=== PATIENT | male | born 1975 | race Caucasian/White ===

== ENCOUNTER 2017-07-06 22:45 | Emergency (ER) | payer OTHER ==
[2017-07-06 22:59] VITALS: RESP 18
[2017-07-06] MEDS ORDERED: ACETAMINOPHEN TAB 500 MG TAB PO STA (23:24)
--- NOTE | 2017-07-06 23:46 | XR ---
EXAMINATION TYPE: XR chest 2V DATE OF EXAM: 07/06/2017 COMPARISON: 07/24/2012 HISTORY: COPD TECHNIQUE: Frontal and lateral views of the chest are obtained. FINDINGS: The heart and mediastinum are normal. Lungs are clear. Diaphragm is normal. Bony thorax ap pears normal. IMPRESSION: Normal chest. No change.
--- NOTE | 2017-07-06 23:50 | ED ---
General Adult HPI - General Chief complaint: Upper Respiratory Infection Stated complaint: Congestion Time Seen by Provider: 07/06/17 23:19 Source: patient, RN notes reviewed Mode of arrival: ambulatory Limitations: no limitations - History of Present Illness Initial comments: This is a 42-year-old male who presents to emergency department with chief complaint of congestion. Patient states that he believes he has a sinus infection. He states he has been congested since yesterday. Patient also complains of a productive cough and generalized body aches. He denies nausea, vomiting or abdominal pain. He denies diarrhea or constipation. He states he' s been eating and drinking well. Denies any chest pain or shortness of breath. - Related Data Previous Rx's Medication Instructions Recorded Ibuprofen [Motrin] 600 mg PO Q8HR PRN #30 tab 01/27/15 Oseltamivir [Tamiflu] 75 mg PO Q12HR #10 cap 07/07/17 Allergies Allergy/AdvReac Type Severity Reaction Status Date / Time No Known Allergies Allergy Verified 07/06/17 22:59 Review of Systems ROS Statement: Those systems with pertinent positive or pertinent negative responses have been documented in the HPI. ROS Other: All systems not noted in ROS Statement are negative. 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 Does not appear to be acutely ill. HEENT: Head atraumatic, normocephalic. Pupils are equal, round and reactive to light. Extraocular movements intact. Oropharynx moist without erythema or exudate. No tenderness on palpation of maxillary or frontal sinuses. Neck: Supple. Normal ROM. No adenopathy. Cardiovascular: Regular rate and rhythm. No murmurs, rubs or gallops. Chest symmetrical. Respiratory: Lungs clear to auscultation bilaterally. No wheezes, rales or rhonchi. Normal respiratory effort with no use of accessory muscles. Abdomen: Soft, non-tender, non-distended. No rigidity, rebound or guarding. Normal bowel sounds in all 4 quadrants. Musculoskeletal: Normal ROM, no tenderness bilateral upper and lower extremities. Skin: [place], warm and dry without rashes or lesions. Neurological: Alert and oriented x3. CN II-XII grossly intact. Speech is fluent and answers are appropriate. No focal neuro deficits. Psychiatric: Normal mood and affect. No overt signs of depression or anxiety noted. Limitations: no limitations Course Vital Signs 07/06/17 22:57 Temperature 101 F H Pulse Rate 105 H Respiratory 18 Rate Blood Pressure 139/89 O2 Sat by Pulse 97 Oximetry Medical Decision Making - Medical Decision Making This is a 42-year-old male who presents to the emergency department with chief complaint of cough and congestion. On presentation patient had a mildly elevated heart rate and was febrile. Chest x-ray revealed no acute abnormalities. Patient tested positive for influenza A. He is doing well and is in no acute distress at this time. Patient will be discharged home with prescription for Tamiflu if patient wishes to have it filled. Patient is in agreement with plan and voiced understanding. All questions answered. - Lab Data Lab Results 07/06/17 Range/Units 23:25 Influenza Type A RNA Detected H (Not Detectd) Influenza Type B (PCR) Not Detected (Not Detectd) - Radiology Data Radiology results: report reviewed Chest x-ray findings: The heart and mediastinum are normal. Lungs are clear. Diaphragm is normal. Bony thorax appears normal. Impression: Normal chest. No change. Disposition Clinical Impression: Influenza Disposition: HOME SELF-CARE Condition: Good Instructions: Influenza (ED) Additional Instructions: Please take medications as prescribed. Please follow up with primary care provider within 1-2 days. Return to emergency department if symptoms should worsen or any concerns arise. Prescriptions: Oseltamivir [Tamiflu] 75 mg PO Q12HR #10 cap Referrals: Jatinder Condon MD [Primary Care Provider] - 1-2 days Time of Disposition: 00:09
[2017-07-07 00:22] VITALS: BP 130/84; PULSE 94; TEMP 99
== END 2017-07-07 00:22 | disposition home or self-care (01) ==
LOC: EC 22:45
DX: J10.1 Influenza due to other identified influenza virus with other respiratory manifestations (principal); F17.200 Nicotine dependence, unspecified, uncomplicated
CPT/HCPCS: 71046; 87502; 99283

== ENCOUNTER 2018-11-26 18:38 | Emergency (ER) | payer OTHER ==
[2018-11-26 18:44] VITALS: RESP 18
--- NOTE | 2018-11-26 19:25 | ED ---
Extremity Problem HPI - General Chief complaint: Extremity Problem,Nontraumatic Stated complaint: hand injury-[facility] Source: patient Mode of arrival: ambulatory Limitations: no limitations - History of Present Illness Initial comments: 43-year-old male presenting for right hand thumb pain. She states while rolling a large object at work he felt pain in his mid hand and right thumb. Patient conservative sprain. He states he does not feel anything is broken. Patient states he was unable to continue to work due to the pain. Presents emergency department for evaluation. Patient denies any other areas of injury. Denies any wrist pain. Patient denies numbness tingling loss sensation or any significant swelling. Remaining review of system negative - Related Data Previous Rx's Medication Instructions Recorded Ibuprofen [Motrin] 600 mg PO Q8HR PRN #30 tab 01/27/15 Oseltamivir [Tamiflu] 75 mg PO Q12HR #10 cap 07/07/17 Allergies Allergy/AdvReac Type Severity Reaction Status Date / Time No Known Allergies Allergy Verified 11/26/18 18:44 Review of Systems ROS Statement: Those systems with pertinent positive or pertinent negative responses have been documented in the HPI. ROS Other: All systems not noted in ROS Statement are negative. 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 Eye: Pupils are equal, round and reactive to light, extra-ocular movements are intact. No nystagmus. There is normal conjunctiva bilaterally. No signs of icterus. Ears, nose, mouth and throat: There are moist mucous membranes and no oral lesions. Neck: The neck is supple, there is no tenderness or JVD. Cardiovascular: There is a regular rate and rhythm. No murmur, rub or gallop is appreciated. Respiratory: Lungs are clear to auscultation, respirations are non-labored, breath sounds are equal. No wheezes, stridor, rales, or rhonchi. Musculoskeletal: Normal ROM at the MTP, PIP, DIP joints of all five digits of the hands b/l. No pain with ROM at the wrist b/l. Patient complained of pain at the right thumb IP joint. Strength 5/5. Sensation intact both proximal and distal to injury site, no snuffbox tendernesss. Radial pulses equal bilaterally 2+. Capillary refill < 2 seconds. Neurological: A&O x 3. CN II-XII intact, There are no obvious motor or sensory deficits. Coordination appears grossly intact. Speech is normal. Skin: Skin is warm and dry and no rashes or lesions are noted. Psychiatric: Cooperative, appropriate mood & affect, normal judgment. Limitations: no limitations Course Vital Signs 11/26/18 11/26/18 18:39 20:35 Temperature 98.7 F 98.8 F Pulse Rate 105 H 99 Respiratory 18 18 Rate Blood Pressure 138/99 130/90 O2 Sat by Pulse 98 99 Oximetry Medical Decision Making - Medical Decision Making 43-year-old male presented for chief complaint of right hand pain that occurred at work while moving a heavy object. No limitation to range of motion patient complains of pain at the IP joint of the right thumb. Patient also admits to that hand pain no anatomical snuffbox tenderness. Neurovascular intact. Heart soft and compressible. No limitations or range of motion of the wrists or pain localized to palpation. This is negative. Imaging studies reveal no acute osseous injury. Patient appears well. Patient placed in splint and given orthopedic f/u. This time feel patient is right-hand strain. Patient was given work limitations of no use of right hand until orthopedic clearance. Disposition Clinical Impression: Strain of right hand, Pain of right thumb Disposition: HOME SELF-CARE Condition: Good Instructions (If sedation given, give patient instructions): Hand Sprain (ED) Additional Instructions: Please use medication as discussed. Please follow-up with family doctor in the next week for evaluation of elevated blood pressure, please follow-up with orthopedic surgery in the next 2-3 days. Please return to emergency room if the symptoms increase or worsen or for any other concerns. Is patient prescribed a controlled substance at d/c from ED?: No Referrals: Jatinder Condon MD [Primary Care Provider] - 1-2 days Tramaine Higuera DO [Doctor of Osteopathic Medicine] - 1-2 days Time of Disposition: 19:51
--- NOTE | 2018-11-26 19:38 | XR ---
EXAMINATION TYPE: XR hand complete RT DATE OF EXAM: 11/26/2018 COMPARISON: NONE HISTORY: Hand pain TECHNIQUE: 3 views FINDINGS: Metacarpals appear intact. I see no fracture nor dislocation. There are no erosions. Film a ppears intact. IMPRESSION: No acute abnormality of the right hand. No sign of inflammatory arthritis.
[2018-11-26 20:37] VITALS: BP 130/90; PULSE 99; TEMP 98.8
== END 2018-11-26 20:37 | disposition home or self-care (01) ==
LOC: EC 18:38
DX: S66.911A Strain of unspecified muscle, fascia and tendon at wrist and hand level, right hand, initial encounter (principal); M79.644 Pain in right finger(s); F17.200 Nicotine dependence, unspecified, uncomplicated; X50.9XXA Other and unspecified overexertion or strenuous movements or postures, initial encounter; Y92.69 Other specified industrial and construction area as the place of occurrence of the external cause; Y99.0 Civilian activity done for income or pay
CPT/HCPCS: 99283

== ENCOUNTER → 2018-12-03 | Outpatient (CLI) | payer OTHER ==
--- NOTE | 2018-12-03 12:27 | XR ---
EXAMINATION TYPE: XR wrist complete RT, XR hand complete RT DATE OF EXAM: 12/03/2018 CLINICAL HISTORY: Right wrist and hand pain TECHNIQUE: Frontal, lateral and oblique images of the right wrist and hand were obtained. Scaphoid v iew was also obtained. COMPARISON: None. FINDINGS: There is no acute fracture/dislocation evident in the right breast nor hand. The joint spa ronald in the right wrist and hand appear within normal limits. The overlying soft tissue appears unrem arkable. No radio opaque foreign body. No negative ulnar variance or positive ulnar variance. Carpal carpal interspaces are maintained. No significant arthropathy at this time. IMPRESSION: There is no acute fracture or dislocation in the right wrist nor hand.
== END | disposition home or self-care (01) ==
LOC: RADXRMAIN 12:01
PROVIDERS: ATTEND Emergency Medicine
DX: M79.641 Pain in right hand (principal); M25.531 Pain in right wrist

== ENCOUNTER 2019-02-24 17:47 | Emergency (ER) | payer OTHER ==
[2019-02-24] MEDS ORDERED: ACET/COD 300 MG/30 MG STARTER PACK 6 TAB BTL PO STA (18:07)
--- NOTE | 2019-02-24 18:07 | ED ---
Back Pain HPI - General Chief Complaint: Back Pain/Injury Stated Complaint: Back pain-[facility] Time Seen by Provider: 02/24/19 17:55 Source: patient, RN notes reviewed Limitations: no limitations - History of Present Illness Initial Comments: This a 43-year-old male presents emergency department to complaint of low back pain. 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 Patient states he has no symptoms that radiate into his leg. He has no abdominal complaints including nausea vomiting diarrhea constipation no bowel bladder incontinence or retention. Denies any saddle anesthesias or lower extremity paresthesias. Patient states that he just feels very stiff, painful. Patient denies any history of back issues. - Related Data Previous Rx's Medication Instructions Recorded Ibuprofen [Motrin] 600 mg PO Q8HR PRN #30 tab 01/27/15 Oseltamivir [Tamiflu] 75 mg PO Q12HR #10 cap 07/07/17 Cyclobenzaprine [Flexeril] 10 mg PO TID PRN #15 tab 02/24/19 Ibuprofen [Motrin] 600 mg PO Q8HR PRN #30 tab 02/24/19 Allergies Allergy/AdvReac Type Severity Reaction Status Date / Time No Known Allergies Allergy Verified 02/24/19 17:52 Review of Systems ROS Statement: Those systems with pertinent positive or pertinent negative responses have been documented in the HPI. ROS Other: All systems not noted in ROS Statement are negative. Past Medical History Past Medical History: No Reported History History of Any Multi-Drug Resistant Organisms: None Reported Past Surgical History: No Surgical Hx Reported Additional Past Surgical History / Comment(s): splenectomy Past Psychological History: No Psychological Hx Reported Smoking Status: Current every day smoker Past Alcohol Use History: Rare Past Drug Use History: None Reported General Exam Limitations: no limitations General appearance: alert, in no apparent distress Head exam: Present: atraumatic, normocephalic, normal inspection Neck exam: Present: normal inspection, full ROM. Absent: tenderness, meningismus, lymphadenopathy Respiratory exam: Present: normal lung sounds bilaterally. Absent: respiratory distress, wheezes, rales, rhonchi, stridor Cardiovascular Exam: Present: regular rate, normal rhythm, normal heart sounds. Absent: systolic murmur, diastolic murmur, rubs, gallop, clicks GI/Abdominal exam: Present: soft, normal bowel sounds. Absent: distended, tenderness, guarding, rebound, rigid Extremities exam: Present: other (Lower extremity strength equal bilaterally, neurovascular intact full strength equal color equal warmth) Back exam: Present: tenderness (Left lumbar paraspinal), muscle spasm, paraspinal tenderness, other (Pain with left straight leg raise). Absent: full ROM (Slight decreased range of motion secondary to discomfort), CVA tenderness (R), CVA tenderness (L), vertebral tenderness Neurological exam: Present: alert, oriented X3, CN II-XII intact, reflexes normal. Absent: motor sensory deficit Skin exam: Present: warm, dry, intact, normal color. Absent: rash Course Vital Signs 02/24/19 17:50 Temperature 98.0 F Pulse Rate 97 Respiratory 18 Rate Blood Pressure 134/90 O2 Sat by Pulse 98 Oximetry Medical Decision Making - Medical Decision Making 43-year-old male presented for low back pain. Patient is a lumbar strain. He has no red flag symptoms. Patient we treated conservatively will be kept off work until his follow-up appointment. Disposition Clinical Impression: Strain of lumbar region Disposition: HOME SELF-CARE Condition: Stable Instructions (If sedation given, give patient instructions): Acute Low Back Pain (ED) Additional Instructions: Please return to the Emergency Department if symptoms worsen or any other concerns. Prescriptions: Cyclobenzaprine [Flexeril] 10 mg PO TID PRN #15 tab PRN Reason: Muscle Spasm Ibuprofen [Motrin] 600 mg PO Q8HR PRN #30 tab PRN Reason: Pain Is patient prescribed a controlled substance at d/c from ED?: No Referrals: Jatinder Condon MD [Primary Care Provider] - 1-2 days Time of Disposition: 18:07
[2019-02-24 18:55] VITALS: BP 130/74; PULSE 62; RESP 17; TEMP 98.1
== END 2019-02-24 18:55 | disposition home or self-care (01) ==
LOC: EC 17:47
DX: S39.012A Strain of muscle, fascia and tendon of lower back, initial encounter (principal); F17.200 Nicotine dependence, unspecified, uncomplicated; X50.9XXA Other and unspecified overexertion or strenuous movements or postures, initial encounter; Y92.69 Other specified industrial and construction area as the place of occurrence of the external cause; Y99.0 Civilian activity done for income or pay
CPT/HCPCS: 99283

== ENCOUNTER → 2019-02-26 | Outpatient (CLI) | payer OTHER ==
--- NOTE | 2019-02-26 10:37 | XR ---
EXAMINATION TYPE: XR lumbar spine 2 or 3V DATE OF EXAM: 02/26/2019 CLINICAL HISTORY: Back pain after twisting injury TECHNIQUE: Frontal and lateral images of the lumbar spine are obtained. COMPARISON: None FINDINGS: Bowel gas overlies the left L1 transverse process of securing visualization. There are 5 l umbar type vertebral bodies identified. The lumbar spine shows satisfactory alignment without eviden ce of acute fracture or dislocation. Vertebral body heights are maintained. Multilevel mild degenerat olga disc disease is seen as small anterior osteophytes and multilevel facet arthropathy with interver tebral disc space narrowing of the lower lumbar spine. The overlying soft tissue appears unremarkabl e. IMPRESSION: No acute fracture or dislocation is seen in the lumbar spine.
== END | disposition home or self-care (01) ==
LOC: RADXRMAIN 10:17
PROVIDERS: ATTEND Emergency Medicine
DX: S39.012A Strain of muscle, fascia and tendon of lower back, initial encounter (principal)
CPT/HCPCS: 72100

== ENCOUNTER → 2020-04-08 | Outpatient (CLI) | payer OTHER ==
--- NOTE | 2020-04-08 17:47 | XR ---
EXAMINATION TYPE: XR elbow complete RT DATE OF EXAM: 04/08/2020 COMPARISON: NONE HISTORY: Pain FINDINGS: Three views of the elbow demonstrate no pathologic joint effusion. The osseous structures are intact . There is no acute fracture or dislocation. Olecranon tiny spur noted. Lateral view demonstrates a soft tissue calcification posteriorly. IMPRESSION: 1. No acute fracture or dislocation. If symptoms persist follow-up study in 7 to 10 days could be ob tained. 2. Olecranon spur.
--- NOTE | 2020-04-08 17:48 | XR ---
EXAMINATION TYPE: XR forearm RT DATE OF EXAM: 04/08/2020 COMPARISON: NONE HISTORY: Pain Two views of the forearm demonstrate that the osseous structures appear to be intact and the joint sp aces appear to be preserved. There is no acute fracture or dislocation. There is an olecranon spur. IMPRESSION: 1. No acute fracture or dislocation
--- NOTE | 2020-04-08 17:49 | XR ---
EXAMINATION TYPE: XR humerus RT DATE OF EXAM: 04/08/2020 COMPARISON: NONE HISTORY: Pain TECHNIQUE: 2 views submitted. FINDINGS: The osseous structures are intact and the joint spaces are preserved. There is a olecranon spur. Mil d hypertrophic change along the medial margin of the condyle. AC joint arthropathy noted. IMPRESSION: 1. No acute fracture or dislocation.
== END | disposition home or self-care (01) ==
LOC: RADXRMAIN 17:09
PROVIDERS: ATTEND Emergency Medicine
DX: M25.721 Osteophyte, right elbow (principal)

== ENCOUNTER 2020-11-21 06:53 | Emergency (ER) | payer OTHER ==
[2020-11-21 07:01] VITALS: TEMP 97.9
[2020-11-21] MEDS ORDERED: FLUORESCEIN STRIPS 1 MG STRIP LEFT EYE STA (07:03)
[2020-11-21] MEDS ORDERED: PROPARACAINE 0.5% OPHTH DROPS 15 ML BTL RIGHT EYE STA (07:08)
--- NOTE | 2020-11-21 07:29 | ED ---
Eye Problem HPI - General Chief complaint: Eye Problems Stated complaint: FB left eye Time Seen by Provider: 11/21/20 07:02 Source: patient Mode of arrival: ambulatory Limitations: no limitations - History of Present Illness Initial comments: 45-year-old male presents to the emergency department with chief complaint of left eye pain. Patient reports he woke up this morning and noted discomfort in the left eye particularly when he is blinking. He denies any discharge or blurred vision. States last night he was mowing the grass and he could have po ssibly stress to but does not recall the exact moment it occurred. Does not wear eye contacts. Does not have any pain per se, it is more of a discomfort. He washed his eye multiple times today. - Related Data Previous Rx's Medication Instructions Recorded Ibuprofen [Motrin] 600 mg PO Q8HR PRN #30 tab 01/27/15 Oseltamivir [Tamiflu] 75 mg PO Q12HR #10 cap 07/07/17 Cyclobenzaprine [Flexeril] 10 mg PO TID PRN #15 tab 02/24/19 Ibuprofen [Motrin] 600 mg PO Q8HR PRN #30 tab 02/24/19 Allergies Allergy/AdvReac Type Severity Reaction Status Date / Time No Known Allergies Allergy Verified 11/21/20 06:58 Review of Systems ROS Statement: Those systems with pertinent positive or pertinent negative responses have been documented in the HPI. ROS Other: All systems not noted in ROS Statement are negative. Past Medical History Past Medical History: Diabetes Mellitus History of Any Multi-Drug Resistant Organisms: None Reported Past Surgical History: No Surgical Hx Reported Additional Past Surgical History / Comment(s): splenectomy Past Psychological History: No Psychological Hx Reported Smoking Status: Current every day smoker Past Alcohol Use History: None Reported Past Drug Use History: None Reported General Exam Limitations: no limitations General appearance: alert, in no apparent distress Head exam: Present: atraumatic, normocephalic, normal inspection Eye exam: Present: normal appearance, PERRL, EOMI. Absent: scleral icterus, conjunctival injection, nystagmus, other (Negative Xiao sign. . No pain with extraocular movements.) Pupils: Present: normal accommodation, other (Corneal abrasion noted at 7:00 and 11:00.) ENT exam: Present: normal exam, normal oropharynx, mucous membranes moist, TM's normal bilaterally, normal external ear exam Neck exam: Present: normal inspection, full ROM. Absent: tenderness, lympha denopathy Respiratory exam: Present: normal lung sounds bilaterally. Absent: respiratory distress, wheezes, rales, rhonchi, stridor, chest wall tenderness, accessory muscle use Cardiovascular Exam: Present: regular rate, normal rhythm, normal heart sounds. Absent: systolic murmur Extremities exam: Present: normal inspection, full ROM, normal capillary refill. Absent: tenderness, pedal edema, joint swelling Back exam: Present: normal inspection, full ROM. Absent: tenderness, CVA tenderness (R), CVA tenderness (L) Neurological exam: Present: alert, oriented X3 Psychiatric exam: Present: normal affect, normal mood Skin exam: Present: warm, dry, intact, normal color Course Vital Signs 11/21/20 06:58 Temperature 97.9 F Pulse Rate 90 Respiratory 16 Rate Blood Pressure 161/107 O2 Sat by Pulse 100 Oximetry Medical Decision Making - Medical Decision Making 45-year-old male presents to emergency Department with a chief complaint of eye discomfort. On Jimenez lamp examination, patient has 2 corneal abrasions at 7 and 11:00. He will be started on eyedrops. Advised to follow with ophthalmology if symptoms unimproved. Return parameters discussed with patient is understanding and agreeable. Case discussed with Dr. Talbert. Disposition Clinical Impression: Corneal abrasion, left Disposition: HOME SELF-CARE Condition: Stable Instructions (If sedation given, give patient instructions): Corneal Abrasion (DC) Additional Instructions: Take prescribed medication as directed. Follow up with ophthalmology if symptoms don't improve. Return to emergency department if symptoms worsen. Is patient prescribed a controlled substance at d/c from ED?: No Referrals: Jatinder Condon MD [Primary Care Provider] - 1-2 days Gil Montalvo MD [STAFF PHYSICIAN] - 1-2 days Time of Disposition: 07:51
[2020-11-21 08:30] VITALS: RESP 18
[2020-11-21 08:31] VITALS: BP 142/100; PULSE 88
== END 2020-11-21 08:31 | disposition home or self-care (01) ==
LOC: EC 06:53
DX: S05.02XA Injury of conjunctiva and corneal abrasion without foreign body, left eye, initial encounter (principal); E11.9 Type 2 diabetes mellitus without complications; F17.200 Nicotine dependence, unspecified, uncomplicated; X58.XXXA Exposure to other specified factors, initial encounter
CPT/HCPCS: 99283

== ENCOUNTER 2020-12-21 16:36 | Emergency (ER) | payer OTHER ==
[2020-12-21 16:54] VITALS: BP 127/87; PULSE 101; RESP 16; TEMP 98.6
--- NOTE | 2020-12-21 18:05 | ED ---
Skin/Abscess/FB HPI - General Chief complaint: Skin/Abscess/Foreign Body Stated complaint: Blisters on Hands Time Seen by Provider: 12/21/20 17:22 Source: patient, RN notes reviewed Mode of arrival: ambulatory Limitations: no limitations - History of Present Illness Initial comments: Patient is a 45-year-old male that presents to the emergency department complaining of fluid blisters on bilateral hands are extremely itchy. Patient denies any change in substance contacts at work or chemicals. He notes that his hands usually aren't wet. He notes that this all came about within the last couple days. He decided to come to the emergency room get evaluated. She denied any other complaints or issues at this time. He denied any decreased sensation range of motion in his bilateral hands. He denied any chest pain shortness of breath headache nausea vomiting diarrhea constipation fever fatigue chills. - Related Data Previous Rx's Medication Instructions Recorded Ibuprofen [Motrin] 600 mg PO Q8HR PRN #30 tab 01/27/15 Oseltamivir [Tamiflu] 75 mg PO Q12HR #10 cap 07/07/17 Cyclobenzaprine [Flexeril] 10 mg PO TID PRN #15 tab 02/24/19 Ibuprofen [Motrin] 600 mg PO Q8HR PRN #30 tab 02/24/19 Polymyxin B-Trimeth Sulf Ophth 1 drops BOTH EYES Q4H #1 bottle 11/21/20 [Polytrim Opthalmic] Betamethasone Dipropionate 1 applic TOPICAL BID #15 mg 12/21/20 [Betamethasone Dipropionate 0.05%] Allergies Allergy/AdvReac Type Severity Reaction Status Date / Time No Known Allergies Allergy Verified 12/21/20 16:53 Review of Systems ROS Statement: Those systems with pertinent positive or pertinent negative responses have been documented in the HPI. ROS Other: All systems not noted in ROS Statement are negative. Past Medical History Past Medical History: Diabetes Mellitus History of Any Multi-Drug Resistant Organisms: None Reported Past Surgical History: No Surgical Hx Reported Additional Past Surgical History / Comment(s): splenectomy Past Psychological History: No Psychological Hx Reported Smoking Status: Current every day smoker Past Alcohol Use History: None Reported Past Drug Use History: None Reported General Exam Limitations: no limitations General appearance: alert, in no apparent distress Head exam: Present: atraumatic, normocephalic, normal inspection Eye exam: Present: normal appearance, PERRL, EOMI. Absent: scleral icterus, conjunctival injection, periorbital swelling Neck exam: Present: normal inspection Respiratory exam: Present: normal lung sounds bilaterally. Absent: respiratory distress, wheezes, rales, rhonchi, stridor Cardiovascular Exam: Present: regular rate, normal rhythm, normal heart sounds. Absent: systolic murmur, diastolic murmur, rubs, gallop, clicks Extremities exam: Present: full ROM, normal capillary refill, other (Too numerous to count fluid filled vesicles on bilateral hand on the palmar surface in between the fingers.). Absent: tenderness, pedal edema, joint swelling, calf tenderness Neurological exam: Present: alert, oriented X3 Psychiatric exam: Present: normal affect, normal mood Skin exam: Present: warm, dry, intact, normal color. Absent: rash Course Vital Signs 12/21/20 16:51 Temperature 98.6 F Pulse Rate 101 H Respiratory 16 Rate Blood Pressure 127/87 O2 Sat by Pulse 97 Oximetry Medical Decision Making - Medical Decision Making 45-year-old male complaining of fluid filled blisters on his bilateral hands that are extremely itchy. Given clinical symptoms patient most likely has dyshidrotic eczema. Case discussed with Dr. Smith, patient can discharge home with follow-up to dermatology. Patient will be given steroid cream. Disposition Clinical Impression: Dyshidrotic eczema, Dermatitis Disposition: HOME SELF-CARE Condition: Stable Instructions (If sedation given, give patient instructions): Eczema (ED), Dyshidrotic Eczema (ED) Additional Instructions: Please return to the Emergency Department if symptoms worsen or any other concerns. Follow-up with dermatology in the next several days. Use steroid cream as prescribed. Is patient prescribed a controlled substance at d/c from ED?: No Referrals: Jatinder Condon MD [Primary Care Provider] - 1-2 days Time of Disposition: 18:04
== END 2020-12-21 18:18 | disposition home or self-care (01) ==
LOC: EC 16:36
DX: L30.1 Dyshidrosis [pompholyx] (principal); E11.9 Type 2 diabetes mellitus without complications; F17.200 Nicotine dependence, unspecified, uncomplicated; Z79.1 Long term (current) use of non-steroidal anti-inflammatories (NSAID)
CPT/HCPCS: 99282

== ENCOUNTER 2022-04-03 14:06 | Observation (INO) | payer BC ==
[2022-04-03 14:18] VITALS: TEMP 97.7
[2022-04-03] MEDS ORDERED: NITROGLYCERIN OINT 1 INCH/GM PACKET TOPICAL STA (14:47)
[2022-04-03] MEDS ORDERED: ASPIRIN 81 MG PO STA (14:47)
[2022-04-03 15:05] LABS: Basophils # (A) 0.1 k/uL (0-0.2); Basophils % (A) 1 %; Eosinophils # (A) 0.5 k/uL (0-0.7); Eosinophils % (A) 4 %; HCT 46.9 % (39.0-53.0); HGB 16.1 gm/dL (13.0-17.5); Lymphocytes # (A) 3.7 k/uL (1.0-4.8); Lymphocytes % (A) 27 %; MCH 32.8 pg (25.0-35.0); MCHC 34.4 g/dL (31.0-37.0); MCV 95.1 fL (80.0-100.0); Mean Platelet Volume 7.3; Monocytes % (A) 7 %; Neutrophils # (A) 7.8 k/uL (1.3-7.7); Neutrophils % (A) 57 %; Platelet Count 408 k/uL (150-450); RBC 4.93 m/uL (4.30-5.90); RDW 12.5 % (11.5-15.5); WBC 13.6 k/uL (3.8-10.6)
--- NOTE | 2022-04-03 15:12 | ED ---
General Adult HPI - General Chief complaint: Chest Pain Stated complaint: Chest Pain Time Seen by Provider: 04/03/22 14:15 Source: patient, RN notes reviewed, old records reviewed Mode of arrival: wheelchair Limitations: no limitations - History of Present Illness Initial comments: This is a 46-year-old male presents emergency Department with a recent past medical history significant for heart attack. Patient states he had a catheterization a week ago and was told he needed bypass surgery because too many blood vessels were occluded. Patient comes in today because he was experiencing the same type of pain he experienced prior to his heart attack. Patient states he has this achiness in his left shoulder and it comes and goes and it came again today and it lasted longer than it had all week so he decided come to the emergency department. Patient states he only differences today from the Sriram had a heart attack was that the pain did not radiate into his jaw. Patient denies any anterior chest pain patient denies any palpitations. Patient denies any shortness of breath. Patient denies any diaphoretic episodes or nausea. Patient currently is shoulder and chest pain-free. - Related Data Previous Rx's Medication Instructions Recorded Ibuprofen [Motrin] 600 mg PO Q8HR PRN #30 tab 01/27/15 Oseltamivir [Tamiflu] 75 mg PO Q12HR #10 cap 07/07/17 Cyclobenzaprine [Flexeril] 10 mg PO TID PRN #15 tab 02/24/19 Ibuprofen [Motrin] 600 mg PO Q8HR PRN #30 tab 02/24/19 Polymyxin B-Trimeth Sulf Ophth 1 drops BOTH EYES Q4H #1 bottle 11/21/20 [Polytrim Opthalmic] Betamethasone Dipropionate 1 applic TOPICAL BID #15 mg 12/21/20 [Betamethasone Dipropionate 0.05%] Allergies Allergy/AdvReac Type Severity Reaction Status Date / Time No Known Allergies Allergy Verified 12/21/20 16:53 Review of Systems ROS Statement: Those systems with pertinent positive or pertinent negative responses have been documented in the HPI. ROS Other: All systems not noted in ROS Statement are negative. Past Medical History Past Medical History: Coronary Artery Disease (CAD), Chest Pain / Angina, Diabetes Mellitus History of Any Multi-Drug Resistant Organisms: None Reported Past Surgical History: No Surgical Hx Reported Additional Past Surgical History / Comment(s): splenectomy Past Psychological History: No Psychological Hx Reported Smoking Status: Former smoker Past Alcohol Use History: None Reported Past Drug Use History: None Reported General Exam - General Exam Comments Initial Comments: GENERAL: Patient is well-developed and well-nourished. Patient is nontoxic and well- hydrated and is in no acute distress. ENT: Neck is soft and supple. No significant lymphadenopathy is noted. Oropharynx is clear. Moist mucous membranes. Neck has full range of motion without eliciting any pain. EYES: The sclera were anicteric and conjunctiva were pink and moist. Extraocular movements were intact and pupils were equal round and reactive to light. Eyelids were unremarkable. PULMONARY: Unlabored respirations. Good breath sounds bilaterally. No audible rales rhonchi or wheezing was noted. CARDIOVASCULAR: There is a regular rate and rhythm without any murmurs gallops or rubs. ABDOMEN: Soft and nontender with normal bowel sounds. SKIN: Skin is clear with no lesions or rashes and otherwise unremarkable. NEUROLOGIC: Patient is alert and oriented x3. Cranial nerves II through XII are grossly intact. Motor and sensory are also intact. Normal speech, volume and content. Symmetrical smile. MUSCULOSKELETAL: Normal extremities with adequate strength and full range of motion. No lower extremity swelling or edema. No calf tenderness. LYMPHATICS: No significant lymphadenopathy is noted PSYCHIATRIC: Normal psychiatric evaluation. Limitations: no limitations Course Vital Signs 04/03/22 04/03/22 04/03/22 14:14 14:48 14:50 Temperature 97.7 F Pulse Rate 67 65 66 Respiratory 16 13 12 Rate Blood Pressure 89/60 93/73 99/75 O2 Sat by Pulse 97 Oximetry Medical Decision Making - Medical Decision Making EKG shows sinus rhythm at 65 bpm [place] interval 170 QRS is 105 QT interval 384 QTC is 395. Patient's EKG shows no acute ST segment elevation or depression. Chest x-ray shows no acute abnormality. I spoke with Dr. Sarkar he agreed to admit the patient admitted the patient wrote admitting orders. I consulted cardiology - Lab Data Result diagrams: 04/03/22 14:50 04/03/22 14:50 Lab Results 04/03/22 04/03/22 04/03/22 Range/Units 14:50 14:50 14:50 WBC 13.6 H (3.8-10.6) k/uL RBC 4.93 (4.30-5.90) m/uL Hgb 16.1 (13.0-17.5) gm/dL Hct 46.9 (39.0-53.0) % MCV 95.1 (80.0-100.0) fL MCH 32.8 (25.0-35.0) pg MCHC 34.4 (31.0-37.0) g/dL RDW 12.5 (11.5-15.5) % Plt Count 408 (150-450) k/uL MPV 7.3 Neutrophils % 57 % Lymphocytes % 27 % Monocytes % 7 % Eosinophils % 4 % Basophils % 1 % Neutrophils # 7.8 H (1.3-7.7) k/uL Lymphocytes # 3.7 (1.0-4.8) k/uL Monocytes # 1.0 (0-1.0) k/uL Eosinophils # 0.5 (0-0.7) k/uL Basophils # 0.1 (0-0.2) k/uL PT 10.8 (9.0-12.0) sec INR 1.0 (<1.2) APTT 24.1 (22.0-30.0) sec Sodium 136 L (137-145) mmol/L Potassium 4.3 (3.5-5.1) mmol/L Chloride 100 (98-107) mmol/L Carbon Dioxide 23 (22-30) mmol/L Anion Gap 13 mmol/L BUN 18 (9-20) mg/dL Creatinine 0.62 L (0.66-1.25) mg/dL Est GFR (CKD-EPI)AfAm >90 (>60 ml/min/1.73 sqM) Est GFR (CKD-EPI)NonAf >90 (>60 ml/min/1.73 sqM) Glucose 219 H (74-99) mg/dL Calcium 9.5 (8.4-10.2) mg/dL Magnesium 1.7 (1.6-2.3) mg/dL Total Bilirubin 0.8 (0.2-1.3) mg/dL AST 27 (17-59) U/L ALT 31 (4-49) U/L Alkaline Phosphatase 84 (38-126) U/L Troponin I (0.000-0.034) ng/mL Total Protein 6.4 (6.3-8.2) g/dL Albumin 4.0 (3.5-5.0) g/dL 04/03/22 Range/Units 14:50 WBC (3.8-10.6) k/uL RBC (4.30-5.90) m/uL Hgb (13.0-17.5) gm/dL Hct (39.0-53.0) % MCV (80.0-100.0) fL MCH (25.0-35.0) pg MCHC (31.0-37.0) g/dL RDW (11.5-15.5) % Plt Count (150-450) k/uL MPV Neutrophils % % Lymphocytes % % Monocytes % % Eosinophils % % Basophils % % Neutrophils # (1.3-7.7) k/uL Lymphocytes # (1.0-4.8) k/uL Monocytes # (0-1.0) k/uL Eosinophils # (0-0.7) k/uL Basophils # (0-0.2) k/uL PT (9.0-12.0) sec INR (<1.2) APTT (22.0-30.0) sec Sodium (137-145) mmol/L Potassium (3.5-5.1) mmol/L Chloride (98-107) mmol/L Carbon Dioxide (22-30) mmol/L Anion Gap mmol/L BUN (9-20) mg/dL Creatinine (0.66-1.25) mg/dL Est GFR (CKD-EPI)AfAm (>60 ml/min/1.73 sqM) Est GFR (CKD-EPI)NonAf (>60 ml/min/1.73 sqM) Glucose (74-99) mg/dL Calcium (8.4-10.2) mg/dL Magnesium (1.6-2.3) mg/dL Total Bilirubin (0.2-1.3) mg/dL AST (17-59) U/L ALT (4-49) U/L Alkaline Phosphatase (38-126) U/L Troponin I <0.012 (0.000-0.034) ng/mL Total Protein (6.3-8.2) g/dL Albumin (3.5-5.0) g/dL Disposition Clinical Impression: Anginal equivalent Disposition: ADMITTED IP TO THIS HOSP Referrals: Quoc Sarkar MD [Primary Care Provider] - 1-2 days Time of Disposition: 15:45
[2022-04-03 15:14] LABS: Partial Thromboplastin Time 24.1 sec (22.0-30.0); Prothrombin Time 10.8 sec (9.0-12.0)
[2022-04-03 15:15] LABS: ALT 31 U/L (4-49); AST 27 U/L (17-59); African American GFR (CKD) >90 (>60 ml/min/1.73 sqM); Alkaline Phosphatase 84 U/L (38-126); Anion Gap 13 mmol/L; Blood Urea Nitrogen 18 mg/dL (9-20); Calcium 9.5 mg/dL (8.4-10.2); Carbon Dioxide 23 mmol/L (22-30); Chloride 100 mmol/L (98-107); Glucose 219 mg/dL (74-99); Magnesium 1.7 mg/dL (1.6-2.3); Non-African American GFR(CKD) >90 (>60 ml/min/1.73 sqM); Potassium 4.3 mmol/L (3.5-5.1); Sodium 136 mmol/L (137-145); Total Bilirubin 0.8 mg/dL (0.2-1.3); Total Protein 6.4 g/dL (6.3-8.2)
--- NOTE | 2022-04-03 15:19 | XR ---
EXAMINATION TYPE: XR chest 2V DATE OF EXAM: 04/03/2022 COMPARISON: Chest x-ray 07/06/2017 HISTORY: Chest pain TECHNIQUE: Frontal and lateral views of the chest are obtained. FINDINGS: There is no focal air space opacity, pleural effusion, or pneumothorax seen. The cardiac silhouette size is within normal limits. There are overlying leads. The osseous structures are intac t. IMPRESSION: No acute cardiopulmonary process.
[2022-04-03] MEDS ORDERED: NITROGLYCERIN SL TABS 0.4 MG TAB SUBLINGUAL PRN ×2 (15:46→17:15)
[2022-04-03 15:47] VITALS: BP 93/67; PULSE 68; RESP 16
[2022-04-03] MEDS ORDERED: INSULIN ASPART (NovoLOG) 100 UNIT/ML VIAL SQ SCH (17:30)
[2022-04-03] MEDS ORDERED: NITROGLYCERIN OINT 1 INCH/GM PACKET TOPICAL SCH (18:00)
[2022-04-03] MEDS ORDERED: HEPARIN SODIUM,PORCINE/PF 5,000 UNIT/0.5 ML SYRINGE SQ SCH (18:45)
[2022-04-03] MEDS ORDERED: METOPROLOL TARTRATE 50 MG TAB PO SCH (21:00)
[2022-04-03] MEDS ORDERED: INSULIN DETEMIR (LEVEMIR) 100 UNIT/ML SYR SQ SCH (21:00)
[2022-04-04] MEDS ORDERED: ISOSORBIDE MONONITRATE ER 30 MG TAB.ER.24H PO SCH (09:00)
[2022-04-04] MEDS ORDERED: PIOGLITAZONE 15 MG TAB PO SCH (09:00)
[2022-04-04] MEDS ORDERED: ASPIRIN 325 MG TAB PO SCH (09:00)
[2022-04-04] MEDS ORDERED: ASPIRIN 81 MG PO SCH (09:00)
[2022-04-04] MEDS ORDERED: ATORVASTATIN 80 MG TAB PO SCH (09:00)
[2022-04-04] MEDS ORDERED: LOSARTAN 25 MG TAB PO SCH (12:00)
== END 2022-04-03 18:17 | disposition left against medical advice (07) ==
LOC: EC 14:06 → 6NMEDSUR 16:00
PROVIDERS: ADMIT Family Medicine; ATTEND Family Medicine
DX: I25.118 Atherosclerotic heart disease of native coronary artery with other forms of angina pectoris (principal); E11.9 Type 2 diabetes mellitus without complications; I25.2 Old myocardial infarction; Z87.891 Personal history of nicotine dependence; Z98.890 Other specified postprocedural states; Z90.81 Acquired absence of spleen; Z53.29 Procedure and treatment not carried out because of patient's decision for other reasons
CPT/HCPCS: 99285; 36415; 93005; 80053; 83735; 84484; 85025; 85610; 85730; 71046; G0378

== ENCOUNTER → 2022-04-05 | Outpatient (CLI) | payer BC ==
[2022-04-05 09:46] LABS: Partial Thromboplastin Time 24.9 sec (22.0-30.0); Prothrombin Time 10.9 sec (9.0-12.0)
--- NOTE | 2022-04-05 09:47 | US ---
EXAMINATION TYPE: US carotid duplex BILAT DATE OF EXAM: 04/05/2022 COMPARISON: NONE CLINICAL HISTORY: 46-year-old male I25.10 Aths[place] heart disease of [place] coronary artery. TECHNIQUE: Carotid duplex ultrasound examination. Indirect Doppler criteria was utilized. FINDINGS: EXAM MEASUREMENTS: RIGHT: Peak Systolic Velocity (PSV) cm/sec ----- Right CCA: 95.3 ----- Right ICA: 73.8 ----- Right ECA: 136.6 ICA/CCA ratio: 0.8 RIGHT: End Diastole cm/sec ----- Right CCA: 27.0 ----- Right ICA: 24.1 ----- Right ECA: 23.6 LEFT: Peak Systolic Velocity (PSV) cm/sec ----- Left CCA: 110.8 ----- Left ICA: 109.5 ----- Left ECA: 102.9 ICA/CCA ratio: 1.0 LEFT: End Diastole cm/sec ----- Left CCA: 34.4 ----- Left ICA: 29.2 ----- Left ECA: 20.4 VERTEBRALS (direction of flow): Right Vertebral: Antegrade Left Vertebral: Antegrade Rhythm: Normal RN POSTPARTUM NOTES: Elevated velocity within right ECA. Some mild plaque seen within bilateral bulbs. IMPRESSION: No hemodynamically significant internal carotid artery stenosis on either side. Criteria for Assigning % of Stenosis / Diameter reduction (Estimation based on the indirect measurements of the internal carotid artery velocities (ICA PSV). 1. Normal (no stenosis)=ICA PSV < 125 cm/s: ratio < 2.0: ICA EDV<40 cm/s. 2. Less than 50% stenosis=ICA PSV < 125 cm/s: ratio < 2.0: ICA EDV<40 cm/s. 3. 50 to 69% stenosis=ICA PSV of 125 to 230 cm/s: ration 2.0 ? 4.0: ICA EDV 40-100 cm/s. 4. Greater than 70% stenosis to near occlusion= ICA PSV > 230 cm/s: ratio > 4.0: ICA EDV > 100 cm/s. 5. Near occlusion= ICA PSV velocities may be low or undetectable: variable ratio and ICA EDV. 6. Total occlusion=unable to detect flow.
[2022-04-05 10:05] LABS: Appearance,Urine Clear (Clear); Bilirubin,Urine Negative (Negative); Blood,Urine Negative (Negative); Color,Urine Light Yellow; Glucose,Urine (UA) Trace (Negative); Ketones,Urine Negative (Negative); Leukocyte Esterase,Urine Negative (Negative); Nitrite,Urine Negative (Negative); PH, Urine 5.5 (5.0-8.0); Protein,Urine Negative (Negative); Urobilinogen,Urine <2.0 mg/dL (<2.0)
--- NOTE | 2022-04-05 11:06 | CT ---
EXAMINATION TYPE: CT chest wo con CT DLP: 483 mGycm, Automated exposure control for dose reduction was used. DATE OF EXAM: 04/05/2022 10:55 AM COMPARISON: Chest radiograph 04/03/2022. CLINICAL INDICATION:Male, 46 years old with history of I25.10 atherosclerotic heart dz of [place] artery; PHH, pre op open heart TECHNIQUE: Multiple axial images were obtained through the chest without IV contrast. Lack of IV or o ral contrast limits evaluation of solid and hollow organ viscera. Coronal and sagittal reformats revi ewed. FINDINGS: LUNGS/ PLEURA: No pneumothorax, pleural effusion, or focal consolidation. No suspicious pulmonary nod ules or masses. AIRWAY: Patent and unremarkable. HEART: Size within normal limits. No pericardial effusion. Small coronary arterial atherosclerotic ca lcifications involving the left anterior descending, circumflex, and right coronary arteries. MEDIASTINUM: No gross evidence of adenopathy. VASCULATURE: No aortic aneurysm. MUSCULOSKELETAL: No acute osseous abnormalities. Multilevel Schmorl's nodes. SOFT TISSUES/LYMPH NODES: Unremarkable. LOWER NECK: No significant findings. UPPER ABDOMEN: Spleen appears surgically absent. Residual splenules in the splenectomy bed. IMPRESSION: 1. No acute thoracic process. 2. Small three-vessel coronary arterial atherosclerotic calcifications.
[2022-04-05 14:58] LABS: Basophils # (A) 0.12 X 10*3/uL (0.00-0.10); Basophils % (A) 0.9 %; Eosinophils # (A) 0.75 X 10*3/uL (0.04-0.35); Eosinophils % (A) 5.5 %; HCT 51.4 % (39.6-50.0); HGB 16.7 g/dL (13.0-17.0); Immature Grans, Automated 0.4 %; Lymphocytes % (A) 31.4 %; MCH 31.7 pg (27.0-32.0); MCHC 32.5 g/dL (32.0-37.0); MCV 97.5 fL (80.0-97.0); Mean Platelet Volume 9.4 fL (9.5-12.2); Monocytes # (A) 1.38 X 10*3/uL (0.20-1.00); Monocytes % (A) 10.1 %; NRBC Per 100 WBC 0 /100 WBCS (0.0-0.0); Neutrophils # (A) 7.09 X 10*3/uL (1.80-7.70); Neutrophils % (A) 51.7 %; Platelet Count 461 X 10*3/uL (140-440); RBC 5.27 X 10*6/uL (4.40-5.60); RDW 12.3 % (11.5-14.5); WBC 13.69 X 10*3/uL (4.50-10.00)
[2022-04-05 15:47] LABS: Hepatitis A Antibody IgM Nonreactive (Nonreactive); Hepatitis B Core IgM Nonreactive (Nonreactive); Hepatitis B Surface Antigen Nonreactive (Nonreactive); Hepatitis C IgG Antibody Nonreactive (Nonreactive)
[2022-04-05 15:53] LABS: ALT 33 U/L (10-49); AST 25 U/L (14-35); African American GFR (CKD) 120.1 (60.0-200.0); Albumin 4.7 g/dL (3.8-4.9); Albumin/Globulin Ratio 1.83 (1.60-3.17); Alkaline Phosphatase 88 U/L (41-126); BUN/Creat Ratio 20.17 Ratio (12.00-20.00); Blood Urea Nitrogen 16.9 mg/dL (9.0-27.0); Carbon Dioxide 27.1 mmol/L (20.0-27.5); Chloride 100 mmol/L (96-109); Globulin 2.6 g/dL (1.6-3.3); Glucose 149 mg/dL (70-110); Non-African American GFR(CKD) 103.6 (60.0-200.0); Sodium 138 mmol/L (135-145); Total Protein 7.3 g/dL (6.2-8.2)
== END | disposition home or self-care (01) ==
LOC: RADUSWWP 06:40
PROVIDERS: ATTEND Thoracic Surgery (Cardiothoracic Vascular Surgery)
DX: Z01.818 Encounter for other preprocedural examination (principal); I25.10 Atherosclerotic heart disease of native coronary artery without angina pectoris; R07.9 Chest pain, unspecified; E86.0 Dehydration; N28.9 Disorder of kidney and ureter, unspecified; E11.9 Type 2 diabetes mellitus without complications; R58 Hemorrhage, not elsewhere classified; R06.00 Dyspnea, unspecified; R10.33 Periumbilical pain
CPT/HCPCS: 94150; 80053; 80074; 84443; 85025; 85610; 85730; 81003; 87070; 83036; 93930; 93970; 93922; 93880; 71250; 93005; U0003

== ENCOUNTER → 2022-04-20 | Outpatient (CLI) | payer BC | END | disposition home or self-care (01) | LOC: LABWHC1 11:58 | PROVIDERS: ATTEND Thoracic Surgery (Cardiothoracic Vascular Surgery) | DX: E11.9 Type 2 diabetes mellitus without complications (principal) | CPT/HCPCS: 36415; 83036 ==

== ENCOUNTER 2022-05-14 05:35 | Inpatient (IN) | payer BC ==
[~2022-05-14 05:35] MED LIST: ALBUMIN HUMAN 25% 50 ML IV ONE; ALBUMIN HUMAN 5% 500 ML IVPB ONE; ASPIRIN 325 MG TAB PO ONE; ATORVASTATIN 10 MG TAB PO ONE; CALCIUM CHLORIDE 100 MG/ML 10 ML SYRINGE IV ONE; CHLORHEXIDINE GLUCONATE 15 ML CUP MUCOUS MEM ONE; CLEVIDIPINE BUTYRATE 25 MG in EMPTY BAG 1 BAG IV ONE; DILTIAZEM 125 MG in SODIUM CHLORIDE 0.9% 100 ML IV ONE; ELECTROLYTE-A SOLUTION 1,000 ML with POTASSIUM CHLORIDE 100 MEQ, MAGNESIUM SULFATE 16 M... IV ONE; ELECTROLYTE-A SOLUTION 1,000 ML with POTASSIUM CHLORIDE 40 MEQ, MAGNESIUM SULFATE 16 ME... IV ONE; HEPARIN SODIUM 1,000 UN/ML (10ML VL) IV ONE; HEPARIN SODIUM,PORCINE 5,000 UNIT in SODIUM CHLORIDE 0.9% 500 ML 500 ML IV ONE; INSULIN REGULAR 100 UNIT in SODIUM CHLORIDE 0.9% 100 ML IV ONE; LACTATED RINGERS 1,000 ML IV ONE; MAGNESIUM SULFATE 16.24 MEQ in EMPTY SYRINGE 1 SYR IV ONE; MANNITOL 25% 12.5 GM/50 ML VIAL IV ONE; METOPROLOL TARTRATE 12.5 MG TAB PO ONE; NITROGLYCERIN SL TABS 0.4 MG TAB SUBLINGUAL ONE; NITROGLYCERIN-D5W PMX 25 MG/250 ML BTL IV ONE; NITROGLYCERIN-D5W PMX 50 MG in DEXTROSE/WATER 1 250ML.BAG IV ONE; NOREPINEPHRINE 4 MG in SODIUM CHLORIDE 0.9% 250 ML IV ONE; PAPAVERINE 360 MG in SODIUM CHLORIDE 0.9% 90 ML IV ONE; PHENYLEPHRINE 10 MG/ML VIAL IV ONE; PHENYLEPHRINE 40 MG in SODIUM CHLORIDE 0.9% 250 ML IV ONE; PROTAMINE SULFATE 10 MG/ML 25 ML VIAL IV ONE; PROTAMINE SULFATE 250 MG in EMPTY BAG 1 BAG IV ONE; SODIUM BICARB 8.4% 50 ML SYR (1 MEQ/ML) IV ONE; SODIUM CHLORIDE 0.9% 1,000 ML IV ONE; TRANEXAMIC ACID 2,000 MG in SODIUM CHLORIDE 0.9% 80 ML IV ONE; ceFAZolin 1,000 MG in SODIUM CHLORIDE 0.9% IRRIGATIO 1,000 ML IRRIGATION ONE; propofoL 1,000 MG/100 ML VIAL IV ONE
[2022-05-14 06:16] LABS: Glucose,Whole Blood 201 mg/dL (70-110)
[2022-05-14 08:44] LABS: ABG Base Excess 2.6 mmol/L; ABG Glucose Whole Blood 162 mg/dL (75-99); ABG HCO3 28 mmol/L (21-25); ABG Hematocrit 39 % (34.0-46.0); ABG Ionized Calcium 4.7 mg/dL (4.5-5.3); ABG Lactic Acid Whole Blood 1.9 mmol/L (0.5-1.6); ABG Oxygen Saturation 99.6 % (94-97); ABG PCO2 44 mmHg (35-45); ABG PH 7.41 (7.35-7.45); ABG PO2 192 mmHg (83-108); ABG Potassium Whole Blood 3.7 mmol/L (3.4-4.5); ABG Sodium Whole Blood 138 mmol/L (135-146); ABG TCO2 29 mmol/L (19-24)
[2022-05-14 09:56] LABS: ABG Base Excess 1.6 mmol/L; ABG Glucose Whole Blood 173 mg/dL (75-99); ABG HCO3 27 mmol/L (21-25); ABG Hematocrit 39 % (34.0-46.0); ABG Ionized Calcium 4.6 mg/dL (4.5-5.3); ABG Lactic Acid Whole Blood 1.7 mmol/L (0.5-1.6); ABG Oxygen Saturation 99.5 % (94-97); ABG PCO2 44 mmHg (35-45); ABG PO2 185 mmHg (83-108); ABG Potassium Whole Blood 3.9 mmol/L (3.4-4.5); ABG Sodium Whole Blood 137 mmol/L (135-146); ABG TCO2 28 mmol/L (19-24)
[2022-05-14 10:59] LABS: ABG Glucose Whole Blood 168 mg/dL (75-99); ABG HCO3 25 mmol/L (21-25); ABG Hematocrit 27 % (34.0-46.0); ABG Oxygen Saturation 99.8 % (94-97); ABG PCO2 43 mmHg (35-45); ABG PH 7.38 (7.35-7.45); ABG PO2 322 mmHg (83-108); ABG Potassium Whole Blood 4.4 mmol/L (3.4-4.5); ABG Sodium Whole Blood 135 mmol/L (135-146); ABG TCO2 27 mmol/L (19-24)
[2022-05-14 11:37] LABS: ABG Base Excess -0.3 mmol/L; ABG Glucose Whole Blood 211 mg/dL (75-99); ABG HCO3 25 mmol/L (21-25); ABG Hematocrit 30 % (34.0-46.0); ABG Ionized Calcium 4.1 mg/dL (4.5-5.3); ABG Oxygen Saturation 99.6 % (94-97); ABG PCO2 45 mmHg (35-45); ABG PH 7.36 (7.35-7.45); ABG PO2 268 mmHg (83-108); ABG Potassium Whole Blood 4.3 mmol/L (3.4-4.5); ABG Sodium Whole Blood 136 mmol/L (135-146); ABG TCO2 27 mmol/L (19-24)
[2022-05-14 12:00] LABS: ABG Base Excess -0.5 mmol/L; ABG Glucose Whole Blood 208 mg/dL (75-99); ABG HCO3 25 mmol/L (21-25); ABG Hematocrit 29 % (34.0-46.0); ABG Ionized Calcium 4.2 mg/dL (4.5-5.3); ABG PCO2 43 mmHg (35-45); ABG PH 7.37 (7.35-7.45); ABG PO2 384 mmHg (83-108); ABG Potassium Whole Blood 3.6 mmol/L (3.4-4.5); ABG Sodium Whole Blood 137 mmol/L (135-146); ABG TCO2 26 mmol/L (19-24)
[2022-05-14 13:08] LABS: ABG Lactic Acid Whole Blood 2.3 mmol/L (0.5-1.6)
[2022-05-14 13:09] LABS: ABG Lactic Acid Whole Blood 2.1 mmol/L (0.5-1.6)
[2022-05-14 13:18] LABS: ABG Base Excess -0.2 mmol/L; ABG Glucose Whole Blood 147 mg/dL (75-99); ABG HCO3 26 mmol/L (21-25); ABG Hematocrit 34 % (34.0-46.0); ABG Ionized Calcium 4.2 mg/dL (4.5-5.3); ABG Oxygen Saturation 99.3 % (94-97); ABG PCO2 48 mmHg (35-45); ABG PH 7.34 (7.35-7.45); ABG PO2 195 mmHg (83-108); ABG Potassium Whole Blood 3.7 mmol/L (3.4-4.5); ABG Sodium Whole Blood 140 mmol/L (135-146); ABG TCO2 28 mmol/L (19-24)
[2022-05-14 13:26] LABS: ABG Lactic Acid Whole Blood 2.1 mmol/L (0.5-1.6)
[2022-05-14] MEDS ORDERED: hydrALAZINE HCL 20 MG/ML 1 ML VIAL IVP PRN (13:35)
[2022-05-14] MEDS ORDERED: DILTIAZEM 125 MG in SODIUM CHLORIDE 0.9% 100 ML IV SCH (13:35)
[2022-05-14] MEDS ORDERED: DEXTROSE 50% SYRINGE 50 ML IVP PRN ×2 (13:35)
[2022-05-14] MEDS ORDERED: NITROGLYCERIN-D5W PMX 50 MG in DEXTROSE/WATER 1 250ML.BAG IV SCH (13:35)
[2022-05-14] MEDS ORDERED: CLEVIDIPINE BUTYRATE 25 MG in EMPTY BAG 1 BAG IV SCH (13:35)
[2022-05-14] MEDS ORDERED: AMIODARONE 450 MG in DEXTROSE 5% IN WATER 250 ML IV PRN ×2 (13:35)
[2022-05-14] MEDS ORDERED: IPRATROPIUM-ALBUTEROL 3 ML NEB INHALATION PRN (13:35)
[2022-05-14] MEDS ORDERED: AMIODARONE 360 MG in DEXTROSE 5% IN WATER 200 ML IV PRN ×2 (13:35)
[2022-05-14] MEDS ORDERED: Potassium Replacement Protocol 1 EACH MISC MISCELLANE PRN (13:35)
[2022-05-14] MEDS ORDERED: BENZOCAINE/MENTHOL LOZENG 1 EACH LOZENGE MUCOUS MEM PRN (13:35)
[2022-05-14] MEDS ORDERED: METOCLOPRAMIDE 5 MG/ML 2 ML VIAL IVP PRN (13:35)
[2022-05-14] MEDS ORDERED: ONDANSETRON 4 MG/2 ML VIAL IVP PRN (13:35)
[2022-05-14] MEDS ORDERED: Magnesium Replacement Protocol 1 EACH MISC MISCELLANE PRN (13:35)
[2022-05-14] MEDS ORDERED: DEXTROSE 5% IN WATER 100 ML with AMIODARONE 150 MG IV PRN (13:35)
[2022-05-14] MEDS ORDERED: DEXMEDETOMIDINE/0.9% NACL(PMX) 400 MCG in EMPTY BAG 1 BAG IV SCH (13:35)
--- NOTE | 2022-05-14 13:52 | P.OP ---
Date of Procedure: 05/14/22 Preoperative Diagnosis: Triple Vessel CAD NSTEMI DM Postoperative Diagnosis: Same Procedure(s) Performed: 1. Coronary artery bypass grafting x 4. Left internal thoracic artery sequenced to 1st diagonal artery, and left anterior descending artery. Left radial artery from aorta to ramus intermedius. Saphenous vein from aorta to proximal posterior descending artery. 2. Left atrial appendage ligation using #35mm AtriClip 3. Endoscopic left radial and right greater saphenous vein harvest 4. Graft flow measurements using the MediStim flow meter 5. Trans-esophageal echo Implants: #35 AtriClip Anesthesia: GETA Surgeon: Micheal Sainz Wireless Consultant #1: Chauncey Hanna Wireless Consultant #2: Wu Redman Estimated Blood Loss (ml): 600 Pathology: none sent Condition: stable Disposition: ICU Indications for Procedure: This patient is a 46 year-old male who developed chest pain with exertion back in February. He underwent coronary angiography which reveals significant 3v coronary artery disease. He was also diagnosed with diabetes with severely elevated A1c. He was started on insulin and surgical revascularization was recommended when his A1c <10. His STS risk of morbidity and mortality was discussed with him and the patient was in agreement to proceed. Operative Findings: TANK 1.7mm good conduit - 1st diagonal 1.5mm good target, LAD 1.75mm good target. GBEB-HORP-RWA flow 16ml/min, P.I. 4 Left radial 2.0mm good conduit, Ramus calcified 1.5mm, flow 45ml/min, P.I. 3.7 Saphenous vein 2.5mm good conduit, proximal PDA calcified, decent target, flow 20 ml/min, P.I. > 10 Description of Procedure: The patient underwent central line, arterial line, and [place] Mya catheter placement in the pre-operative suite by the anesthesia team. The patient was then brought to the operating room and placed in the supine position. General anesthesia was induced and the patient was prepped from the chin to the ankles in the usual sterile fashion. A time-out was performed and antibiotics were given. A midline incision was made on the chest and carried down to bone. A median sternotomy was performed. Hemostasis on the bone was achieved using electrocautery. The left pleura was entered and the left internal thoracic artery was harvested in a skeletonized fashion. Simultaneously a physician accountant assistant harvested the right greater saphenous vein as well as the left radial artery in an endoscopic fashion. The patient was systemically heparinized and the TANK was transected and placed in a papaverine jacuzzi. A left sided chest tube was placed. The pericardium was incised in a T-fashion and a pericardial cradle was created. The patients aortic arch and right atrial appendage were cannulated for arterial and venous cannulation. Pledgets were used on the arch cannulation site. Antegrade and retrograde cannulas were placed. The conduit was examined and the, radial artery and GSV was of good quality. Cardiopulmonary bypass was instituted once ACT >480. The targets were examined and the heart was arrested using antegrade and retrograde cardioplegia. Retrograde cardioplegia was re-dosed every 15 minutes. The distal right coronary artery was exposed and an arteriotomy was created in the proximal PDA iwhich was a 1.5mm calcified vessel but a decent target. An end to side anastomosis was performed with the GSV to the RCA using a running 7-0 Prolene. Then, a 35mm AtriClip was placed on the left atrial appendage effectively ligating it. The ramus intermedius was dissected out and an arteriotomy was made. It was 1.5mm in diameter and calcified. An end to side anastomosis was performed with radial artery to ramus using a running 7-0 Prolene. The pericardium was then incised to create a pathway for the NAYLOR. Care was taken to avoid injury to phrenic nerve. Next the TANK was anastomosed to the first diagonal artery, which was 1.5mm and a good target, in a side to side fashion using a running 7-0 prolene. Lastly, the TANK was anastomosed to the mid to distal LAD in an end to side fashion using a running 7-0 prolene. Next, the radial artery and saphenous vein proximals were fastened to the ascending aorta in an end to side fashion using a running 6-0 Prolene. The patient was placed in the Trendelenburg position and the clamp was removed. Graft flow measurements were taken using the Medi-Stim device and they were excellent. Ventricular wires were placed and all of the distals were checked for hemostasis. The patient was weaned off cardiopulmonary bypass and decannulated without the need for pressors and inotropes. A 36F chest tube and 19F Miguel were left in the mediastinum and right pleura respectively. The sternum was re- approximated using cables. The fascia was closed with Ethibond and the subcutaneous tissues and skin, the sternum, arm and leg were closed in Vicryl layers. The patient was transported to the ICU without any major complications. RAIMUNDO showed that EF was about 55% at the conclusion of the case.
[2022-05-14 14:00] LABS: Glucose,Whole Blood 124 mg/dL (70-110)
[2022-05-14] MEDS: LACTATED RINGERS 1,000 ML IV SCH (14:00)
[2022-05-14] MEDS: INSULIN REGULAR 100 UNIT in SODIUM CHLORIDE 0.9% 100 ML IV SCH (14:00)
[2022-05-14 14:16] LABS: Ionized Calcium 4.7 mg/dL (4.5-5.3)
[2022-05-14 14:17] LABS: Partial Thromboplastin Time 41.4 sec (22.0-30.0); Prothrombin Time 11.3 sec (9.0-12.0)
[2022-05-14 14:25] LABS: ABG Base Excess -6.6 mmol/L; ABG HCO3 22 mmol/L (21-25); ABG Oxygen Saturation 97.1 % (94-97); ABG PCO2 63 mmHg (35-45); ABG PO2 109 mmHg (83-108); ABG TCO2 24 mmol/L (19-24)
[2022-05-14 14:27] LABS: ABG PH 7.15 (7.35-7.45); Allen Test Performed? no
[2022-05-14 14:38] LABS: ALT 28 U/L (4-49); AST 40 U/L (17-59); African American GFR (CKD) >90 (>60 ml/min/1.73 sqM); Albumin 2.9 g/dL (3.5-5.0); Alkaline Phosphatase 61 U/L (38-126); Anion Gap 3 mmol/L; Blood Urea Nitrogen 16 mg/dL (9-20); Calcium 7.3 mg/dL (8.4-10.2); Carbon Dioxide 27 mmol/L (22-30); Chloride 108 mmol/L (98-107); Glucose 119 mg/dL (74-99); Magnesium 2.5 mg/dL (1.6-2.3); Non-African American GFR(CKD) >90 (>60 ml/min/1.73 sqM); Potassium 4.5 mmol/L (3.5-5.1); Sodium 138 mmol/L (137-145); Total Bilirubin 0.8 mg/dL (0.2-1.3); Total Protein 4.8 g/dL (6.3-8.2)
[2022-05-14 14:43] LABS: HCT 35.3 % (39.0-53.0); MCH 32.1 pg (25.0-35.0); MCHC 34.1 g/dL (31.0-37.0); Mean Platelet Volume 7.9; Platelet Count 205 k/uL (150-450); RBC 3.76 m/uL (4.30-5.90); RDW 13.1 % (11.5-15.5); WBC 23.8 k/uL (3.8-10.6)
[2022-05-14 14:46] LABS: HGB 12.1 gm/dL (13.0-17.5)
[2022-05-14] MEDS: ALBUMIN HUMAN 5% 250 ML in EMPTY BAG 1 BAG IVPB PRN ×3 (14:53→20:54)
[2022-05-14 14:57] LABS: Glucose,Whole Blood 151 mg/dL (70-110)
--- NOTE | 2022-05-14 14:57 | XR ---
EXAMINATION TYPE: XR chest 1V portable DATE OF EXAM: 05/14/2022 COMPARISON: 04/03/2022 HISTORY: Postop TECHNIQUE: Single frontal view of the chest is obtained. FINDINGS: ET tube approximately 3.5 cm above solo. NG tube seen extending in left upper quadrant. Bilateral areas of consolidation. Suspected mediastinal drain and chest tube with no sizable pneumoth orax. Heart size normal. No overt failure. Postsurgical changes seen. Right-sided central line seen w ith the tip not well delineated BE correlated clinically. IMPRESSION: 1. Postoperative changes suspected postoperative atelectasis and no sizable pneumothorax. 2. The tip of the right-sided IJ central line is not well seen and should be correlated for position.
[2022-05-14 15:04] LABS: HCT 35.2 % (39.0-53.0); HGB 12.1 gm/dL (13.0-17.5); MCH 32.8 pg (25.0-35.0); MCHC 34.4 g/dL (31.0-37.0); MCV 95.5 fL (80.0-100.0); Mean Platelet Volume 7.8; Platelet Count 221 k/uL (150-450); RBC 3.69 m/uL (4.30-5.90); RDW 13.2 % (11.5-15.5)
[2022-05-14] MEDS ORDERED: PROTAMINE SULFATE 10 MG/ML 5 ML VIAL IV STA (15:04)
[2022-05-14 15:21] LABS: Glucose,Whole Blood 140 mg/dL (70-110)
[2022-05-14 15:22] LABS: Band Neutrophils % 4 %; Lymphocytes # (M) 2.62 k/uL (1.0-4.8); Monocytes # (M) 2.14 k/uL (0-1.0); Neutrophils % (M) 76 %; Nucleated Red Blood Cells 0 /100 WBC (0-0); Total Cells Counted 100
[2022-05-14 15:24] LABS: Poikilocytosis (M) Present
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
[2022-05-14 15:33] LABS: ABG Base Excess -0.1 mmol/L; ABG HCO3 25 mmol/L (21-25); ABG Oxygen Saturation 98.3 % (94-97); ABG PCO2 41 mmHg (35-45); ABG PH 7.39 (7.35-7.45); ABG PO2 95 mmHg (83-108); ABG TCO2 26 mmol/L (19-24)
[2022-05-14 15:34] LABS: Allen Test Performed? no
[2022-05-14] MEDS ORDERED: IPRATROPIUM-ALBUTEROL 3 ML NEB INHALATION SCH ×2 (16:00→20:00)
[2022-05-14 16:12] LABS: Glucose,Whole Blood 121 mg/dL (70-110)
[2022-05-14 16:18] LABS: HCT 29.5 % (39.0-53.0); HGB 10.1 gm/dL (13.0-17.5); MCH 31.8 pg (25.0-35.0); MCHC 34.1 g/dL (31.0-37.0); MCV 93.4 fL (80.0-100.0); Mean Platelet Volume 7.9; Platelet Count 179 k/uL (150-450); RBC 3.16 m/uL (4.30-5.90); RDW 12.9 % (11.5-15.5); WBC 17.4 k/uL (3.8-10.6)
[2022-05-14] MEDS: HEPARIN SODIUM,PORCINE/PF 5,000 UNIT/0.5 ML SYRINGE SQ SCH ×2 (16:51→23:41)
[2022-05-14 16:56] LABS: Glucose,Whole Blood 121 mg/dL (70-110)
[2022-05-14 17:57] LABS: Glucose,Whole Blood 129 mg/dL (70-110)
[2022-05-14] MEDS: ACETAMINOPHEN IV (For NPO) 1,000 MG in EMPTY BAG 1 BAG IVPB SCH ×2 (18:04→23:22)
[2022-05-14 18:23] LABS: ABG Base Excess 1.3 mmol/L; ABG HCO3 26 mmol/L (21-25); ABG Oxygen Saturation 99.7 % (94-97); ABG PCO2 42 mmHg (35-45); ABG PO2 160 mmHg (83-108); ABG TCO2 27 mmol/L (19-24)
[2022-05-14 18:24] LABS: Allen Test Performed? no
[2022-05-14 18:55] LABS: Glucose,Whole Blood 144 mg/dL (70-110)
[2022-05-14] MEDS: DILTIAZEM 125 MG in SODIUM CHLORIDE 0.9% 100 ML IV SCH ×2 (19:17→23:42)
[2022-05-14 19:25] LABS: Basophils # (A) 0.1 k/uL (0-0.2); Basophils % (A) 0 %; Eosinophils % (A) 0 %; HCT 26.9 % (39.0-53.0); HGB 9.6 gm/dL (13.0-17.5); Lymphocytes # (A) 0.7 k/uL (1.0-4.8); Lymphocytes % (A) 5 %; MCH 33.1 pg (25.0-35.0); MCHC 35.5 g/dL (31.0-37.0); Mean Platelet Volume 8.2; Monocytes % (A) 6 %; Neutrophils # (A) 14.4 k/uL (1.3-7.7); Neutrophils % (A) 88 %; Platelet Count 171 k/uL (150-450); RBC 2.89 m/uL (4.30-5.90); RDW 12.9 % (11.5-15.5); WBC 16.3 k/uL (3.8-10.6)
[2022-05-14 19:55] LABS: Glucose,Whole Blood 151 mg/dL (70-110)
[2022-05-14 21:04] LABS: Glucose,Whole Blood 155 mg/dL (70-110)
[2022-05-14 22:04] LABS: Glucose,Whole Blood 152 mg/dL (70-110)
[2022-05-14 22:57] LABS: Glucose,Whole Blood 140 mg/dL (70-110)
[2022-05-15 00:10] LABS: Glucose,Whole Blood 132 mg/dL (70-110)
[2022-05-15 01:06] LABS: Glucose,Whole Blood 140 mg/dL (70-110)
[2022-05-15 02:15] LABS: Glucose,Whole Blood 126 mg/dL (70-110)
[2022-05-15 03:11] LABS: Glucose,Whole Blood 126 mg/dL (70-110)
[2022-05-15] MEDS ORDERED: IPRATROPIUM-ALBUTEROL 3 ML NEB INHALATION SCH (04:00)
[2022-05-15] MEDS: HYDROcodone/APAP 5-325MG 1 EACH TAB PO PRN ×5 (04:04→16:29)
[2022-05-15 04:20] LABS: Glucose,Whole Blood 142 mg/dL (70-110)
[2022-05-15 04:46] LABS: HGB 9.2 gm/dL (13.0-17.5); MCH 32.1 pg (25.0-35.0); MCHC 34.1 g/dL (31.0-37.0); Platelet Count 174 k/uL (150-450); RBC 2.88 m/uL (4.30-5.90); RDW 13.4 % (11.5-15.5); WBC 15.9 k/uL (3.8-10.6)
[2022-05-15 04:51] LABS: Ionized Calcium 4.6 mg/dL (4.5-5.3)
[2022-05-15 05:00] LABS: ALT 27 U/L (4-49); AST 64 U/L (17-59); African American GFR (CKD) >90 (>60 ml/min/1.73 sqM); Albumin 3.4 g/dL (3.5-5.0); Alkaline Phosphatase 37 U/L (38-126); Anion Gap 3 mmol/L; Blood Urea Nitrogen 16 mg/dL (9-20); Calcium 7.6 mg/dL (8.4-10.2); Carbon Dioxide 26 mmol/L (22-30); Chloride 106 mmol/L (98-107); Glucose 124 mg/dL (74-99); Non-African American GFR(CKD) >90 (>60 ml/min/1.73 sqM); Potassium 3.8 mmol/L (3.5-5.1); Sodium 135 mmol/L (137-145); Total Bilirubin 1.3 mg/dL (0.2-1.3)
[2022-05-15 05:13] LABS: Glucose,Whole Blood 140 mg/dL (70-110)
[2022-05-15 06:01] LABS: Band Neutrophils % 3 %; Lymphocytes # (M) 2.39 k/uL (1.0-4.8); Monocytes # (M) 1.43 k/uL (0-1.0); Neutrophils % (M) 73 %; Nucleated Red Blood Cells 0 /100 WBC (0-0); Total Cells Counted 100
[2022-05-15 06:10] LABS: Poikilocytosis (M) Present
[2022-05-15 06:16] LABS: Glucose,Whole Blood 147 mg/dL (70-110)
[2022-05-15] MEDS: MAGNESIUM SULFATE-D5W PMX 1 GM in DEXTROSE/WATER 1 100ML.BAG IVPB SCH ×2 (06:24→07:55)
[2022-05-15] MEDS ORDERED: POTASSIUM CHLORIDE ER 20 MEQ TAB.ER PO SCH (07:00)
[2022-05-15 07:05] LABS: Glucose,Whole Blood 187 mg/dL (70-110)
--- NOTE | 2022-05-15 08:32 | XR ---
EXAMINATION TYPE: XR chest 1V portable DATE OF EXAM: 05/15/2022 Comparison: 05/14/2022 Clinical History: 46-year-old male Post Operative Cardiac Surgery Findings: Right IJ [place]-Mya catheter tip at the main pulmonary outflow tract. Mediastinal drain and bilateral chest tubes are noted. No appreciable pneumothorax. Interval extubation. Lung volumes are diminished with increased interstitial and vascular prominence. Increasing patchy retrocardiac and left basilar opacity. Impression: Interval hypoventilatory changes after extubation. There is either developing pulmonary vascular howie estion versus crowding of the vasculature due to low lung volumes. Worsening retrocardiac and left ba silar atelectasis.
[2022-05-15 08:33] LABS: Glucose,Whole Blood 189 mg/dL (70-110)
[2022-05-15] MEDS: IPRATROPIUM-ALBUTEROL 3 ML NEB INHALATION SCH ×4 (08:36→21:04)
[2022-05-15] MEDS: ATORVASTATIN 80 MG TAB PO SCH (08:41)
[2022-05-15] MEDS: CLOPIDOGREL 75 MG TAB PO SCH (08:41)
[2022-05-15] MEDS: ASPIRIN 325 MG TAB PO SCH (08:41)
[2022-05-15] MEDS: HEPARIN SODIUM,PORCINE/PF 5,000 UNIT/0.5 ML SYRINGE SQ SCH ×3 (08:42→23:00)
[2022-05-15] MEDS ORDERED: METOPROLOL TARTRATE 25 MG TAB PO SCH ×2 (09:00→16:00)
[2022-05-15] MEDS ORDERED: bisacodyL 10 MG SUPP RECTAL PRN (09:00)
[2022-05-15] MEDS ORDERED: MAGNESIUM HYDROXIDE 2,400 MG/10 ML CUP PO PRN (09:00)
[2022-05-15] MEDS ORDERED: METOPROLOL TARTRATE 12.5 MG TAB PO SCH (09:00)
[2022-05-15] MEDS ORDERED: PANTOPRAZOLE 40 MG/10 ML VIAL IVP SCH (09:00)
[2022-05-15 09:27] LABS: Glucose,Whole Blood 173 mg/dL (70-110)
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
--- NOTE | 2022-05-15 10:08 | P.PN ---
Subjective Progress Note Date: 05/15/22 Principal diagnosis: Triple-vessel coronary artery disease with recent non-STEMI. Previous medical history of hypertension, insulin-dependent diabetes, previous tobacco dependence , splenectomy, Covid infection in summer 2021 POD #1 coronary artery bypass grafting 4, left internal thoracic artery sequenced to the first diagonal artery then the left anterior descending artery, left radial artery on the aorta to the ramus intermedius, reverse saphenous vein graft from the aorta to the proximal posterior descending coronary artery, left atrial appendage ligation using a 35 mm AtriClip, endoscopic harvesting of the left radial and right greater saphenous vein, graft flow measurements using the Oppastim system, intraoperative transesophageal echocardiogram performed by edgard castillo Postoperative acute blood loss anemia, expected given hemodilution Leukocytosis, expected, reactive The patient was seen and examined this morning sitting up in a recliner in the intensive care unit in no acute distress. He was successfully extubated yesterday at 18:30. Currently in sinus tach with heart rate in the low 100s, hemodynamically stable. Remains on low-dose IV Cardizem for radial artery spasm prophylaxis. States pain is most controlled with current medication regimen, denies shortness of breath. Currently on 2 L nasal cannula with oxygen saturation in the high 90s, only able to achieve 500 mL on his incentive spirometry. Patient did have a elvira immediate postoperative course with shivers, hyperthermia, hypertension, and increased chest tube output. He was treated and stabilized. Appears much more stable this morning. Right internal jugular Fountain/Cordis, right radial arterial line, mediastinal/right/left pleural chest tubes all remaining present. No other new concerns. Objective - Vital Signs Vital signs: Vital Signs Temp 100.6 F H 05/15/22 08:00 Pulse 113 H 05/15/22 09:00 Resp 53 H 05/15/22 09:00 BP 109/69 05/15/22 08:00 Pulse Ox 95 05/15/22 09:00 FiO2 50 05/14/22 17:56 Intake & Output 05/14/22 05/15/22 05/15/22 18:59 06:59 18:59 Intake Total 9133.903 4244.996 584.802 Output Total 2580 1745 225 Balance -1114.753 -397.004 359.802 Weight 74.7 kg Intake: IV 1346.0 1318 332.0 ACETAMINOPHEN IV (For NPO 100 100 ) 1,000 mg In Empty Bag 1 bag @ 400 mls/hr IVPB Q6HR [facility] Rx#:[id number] Albumin Human 5% 250 ml 750 250 In Empty Bag 1 bag @ 250 mls/hr IVPB Q1HR PRN Rx#: [id number] Diltiazem 125 mg In 25 5.0 Sodium Chloride 0.9% 100 ml @ 5 MG/HR 5 mls/hr IV .Q24H [facility] Rx#:[id number] Lactated Ringers 1,000 ml 250 600 150 @ 20 mls/hr IV .Q24H [facility] Rx#:[id number] Magnesium Sulfate-D5w Pmx 100 1 gm In Dextrose/Water 1 100ml.bag @ 100 mls/hr IVPB Q1H [facility] Rx#: [id number] Nitroglycerin-D5w Pmx 50 3.0 mg In Dextrose/Water 1 250ml.bag @ 5 MCG/MIN 1.5 mls/hr IV .Q24H [facility] Rx#: [id number] ceFAZolin 2 gm In Sodium 50 50 Chloride 0.9% 50 ml @ 100 mls/hr IVPB Q8HR [facility] Rx# :[id number] co/ci 120 210 pressure bag 45 108 27 Intake, IV Titration 119.247 29.996 12.802 Amount Clevidipine Butyrate 25 7.134 mg In Empty Bag 1 bag @ 1 MG/HR 2 mls/hr IV .Q24H [facility] Rx#:[id number] Dexmedetomidine/0.9% NaCl 15.272 (Pmx) 400 mcg In Empty Bag 1 bag @ Titrate IV . Q0M [facility] Rx#:[id number] Diltiazem 125 mg In 11.042 Sodium Chloride 0.9% 100 ml @ 2.5 MG/HR 2.5 mls/hr IV .Q24H [facility] Rx#: [id number] Insulin Regular 100 unit 7.686 18.954 12.802 In Sodium Chloride 0.9% 100 ml @ Per Protocol IV .Q0M [facility] Rx#:[id number] ceFAZolin 2 gm In Sodium 50 Chloride 0.9% 50 ml @ 100 mls/hr IVPB Q8HR [facility] Rx# :[id number] propofoL 1,000 mg In 39.155 Empty Bag 1 bag @ Titrate IV .Q0M [facility] Rx#: [id number] Oral 240 Output: Drainage 890 710 40 Medial 410 220 10 left and right pleural 480 490 30 Urine 790 1035 185 Estimated Blood Loss 900 Other: Voiding Method Indwelling Catheter Indwelling Catheter ABP, PAP, CO, CI - Last Documented Arterial Blood Pressure 139/62 Pulmonary Artery Pressure 24/3 Cardiac Output 6.8 Cardiac Index 3.8 - Exam CONSTITUTIONAL: Appears comfortable, cooperative, no acute distress RESPIRATORY: Lungs sounds diminished bilaterally. Respirations even, nonlabored. Currently on 2 L nasal cannula with oxygen saturation 97%. Able to achieve 500 mL on incentive spirometry. Strong productive cough. CARDIOVASCULAR: S1, S2 present. Tachy but regular rate and rhythm, sinus tach on telemetry. Sternum stable. Palpable peripheral pulses bilaterally. No edema present. No calf pain or tenderness noted. Heart hugger in place with patient demonstrating appropriate use. Antiembolism stockings, SCDs present. GASTROINTESTINAL: Abdomen soft, nontender, nondistended. Hypoactive bowel caron nds present 4 quadrants. Tolerating minimal clear liquids. Denies flatus GENITOURINARY: Abernathy present draining clear, yellow urine. Output overnight 75-100 mL per hour INTEGUMENTARY: Skin is warm and dry with evidence of good perfusion. Anterior chest incision well approximated and covered with dry intact dressing. Left radial artery harvest site as well as right lower extremity EVH site well approximated without redness or drainage. NEUROLOGIC: Cranial nerves II through XII intact MUSKULOSKELETAL: Able to move all extremities, strength equal bilaterally PSYCHIATRIC: Alert and oriented to person place and time, appropriate affect, intact judgment and insight INVASIVE LINES AND TUBES: Mediastinal/left/right pleural chest tubes present and connected to wall suction, no air leaks present. Mediastinal tube with 100 mL serosanguineous drainage overnight, 700 mL since surgery. Left/right pleural chest tubes with 330 mL serosanguineous drainage overnight, 1150 mL since surgery. Ventricular epicardial pacemaker wires present, grounded. Right internal jugular Fountain/Cordis, right radial arterial line present. Last CO/CI 7.7/4.3, PA 25/1, CVP 6. - Allied health notes Allied health notes reviewed: nursing - Labs CBC & Chem 7: 05/15/22 04:15 05/15/22 04:15 Labs: Abnormal Lab Results - Last 24 Hours (Table) 05/10/22 05/14/22 05/14/22 Range/Units 10:39 08:44 09:56 WBC (3.8-10.6) k/uL RBC (4.30-5.90) m/uL Hgb (13.0-17.5) gm/dL Hct (39.0-53.0) % Neutrophils # (1.3-7.7) k/uL Neutrophils # (Manual) (1.3-7.7) k/uL Lymphocytes # (1.0-4.8) k/uL Monocytes # (Manual) (0-1.0) k/uL APTT (22.0-30.0) sec Fibrinogen (200-500) mg/dL ABG pH (7.35-7.45) ABG pCO2 (35-45) mmHg ABG pO2 192 H 185 H (83-108) mmHg ABG HCO3 28 H 27 H (21-25) mmol/L ABG Total CO2 29 H 28 H (19-24) mmol/L ABG O2 Saturation 99.6 H 99.5 H (94-97) % ABG Hematocrit (34.0-46.0) % ABG Ionized Calcium (4.5-5.3) mg/dL ABG Glucose 162 H 173 H (75-99) mg/dL ABG Lactic Acid 1.9 H 1.7 H (0.5-1.6) mmol/L Hemoglobin 12.8 L 12.8 L (13.0-17.5) gm/dL Sodium (137-145) mmol/L Chloride (98-107) mmol/L Creatinine (0.66-1.25) mg/dL Glucose (74-99) mg/dL POC Glucose (mg/dL) (70-110) mg/dL Hemoglobin A1c (0.0-6.0) % Calcium (8.4-10.2) mg/dL Magnesium (1.6-2.3) mg/dL AST (17-59) U/L Alkaline Phosphatase (38-126) U/L Total Protein (6.3-8.2) g/dL Albumin (3.5-5.0) g/dL Arterial Blood Glucose 162 H 173 H (75-99) mg/dL Crossmatch See Detail 05/14/22 05/14/2222 Range/Units 10:59 11:36 12:00 WBC (3.8-10.6) k/uL RBC (4.30-5.90) m/uL Hgb (13.0-17.5) gm/dL Hct (39.0-53.0) % Neutrophils # (1.3-7.7) k/uL Neutrophils # (Manual) (1.3-7.7) k/uL Lymphocytes # (1.0-4.8) k/uL Monocytes # (Manual) (0-1.0) k/uL APTT (22.0-30.0) sec Fibrinogen (200-500) mg/dL ABG pH (7.35-7.45) ABG pCO2 (35-45) mmHg ABG pO2 322 H 268 H 384 H (83-108) mmHg ABG HCO3 (21-25) mmol/L ABG Total CO2 27 H 27 H 26 H (19-24) mmol/L ABG O2 Saturation 99.8 H 99.6 H 100.0 H (94-97) % ABG Hematocrit 27 L 30 L 29 L (34.0-46.0) % ABG Ionized Calcium 4.0 L 4.1 L 4.2 L (4.5-5.3) mg/dL ABG Glucose 168 H 211 H 208 H (75-99) mg/dL ABG Lactic Acid 2.3 H* 2.1 H 2.0 H (0.5-1.6) mmol/L Hemoglobin 8.7 L 9.7 L 9.6 L (13.0-17.5) gm/dL Sodium (137-145) mmol/L Chloride (98-107) mmol/L Creatinine (0.66-1.25) mg/dL Glucose (74-99) mg/dL POC Glucose (mg/dL) (70-110) mg/dL Hemoglobin A1c (0.0-6.0) % Calcium (8.4-10.2) mg/dL Magnesium (1.6-2.3) mg/dL AST (17-59) U/L Alkaline Phosphatase (38-126) U/L Total Protein (6.3-8.2) g/dL Albumin (3.5-5.0) g/dL Arterial Blood Glucose 168 H 211 H 208 H (75-99) mg/dL Crossmatch 05/14/22 05/14/22 05/14/22 Range/Units 13:17 13:57 13:57 WBC 23.8 H (3.8-10.6) k/uL RBC 3.76 L (4.30-5.90) m/uL Hgb 12.1 L D (13.0-17.5) gm/dL Hct 35.3 L (39.0-53.0) % Neutrophils # (1.3-7.7) k/uL Neutrophils # (Manual) 19.00 H (1.3-7.7) k/uL Lymphocytes # (1.0-4.8) k/uL Monocytes # (Manual) 2.14 H (0-1.0) k/uL APTT 41.4 H (22.0-30.0) sec Fibrinogen (200-500) mg/dL ABG pH 7.34 L (7.35-7.45) ABG pCO2 48 H (35-45) mmHg ABG pO2 195 H (83-108) mmHg ABG HCO3 26 H (21-25) mmol/L ABG Total CO2 28 H (19-24) mmol/L ABG O2 Saturation 99.3 H (94-97) % ABG Hematocrit (34.0-46.0) % ABG Ionized Calcium 4.2 L (4.5-5.3) mg/dL ABG Glucose 147 H (75-99) mg/dL ABG Lactic Acid 2.1 H (0.5-1.6) mmol/L Hemoglobin 11.2 L (13.0-17.5) gm/dL Sodium (137-145) mmol/L Chloride (98-107) mmol/L Creatinine (0.66-1.25) mg/dL Glucose (74-99) mg/dL POC Glucose (mg/dL) (70-110) mg/dL Hemoglobin A1c (0.0-6.0) % Calcium (8.4-10.2) mg/dL Magnesium (1.6-2.3) mg/dL AST (17-59) U/L Alkaline Phosphatase (38-126) U/L Total Protein (6.3-8.2) g/dL Albumin (3.5-5.0) g/dL Arterial Blood Glucose 147 H (75-99) mg/dL Crossmatch 05/14/22 05/14/22 05/14/22 Range/Units 13:57 13:57 13:58 WBC (3.8-10.6) k/uL RBC (4.30-5.90) m/uL Hgb (13.0-17.5) gm/dL Hct (39.0-53.0) % Neutrophils # (1.3-7.7) k/uL Neutrophils # (Manual) (1.3-7.7) k/uL Lymphocytes # (1.0-4.8) k/uL Monocytes # (Manual) (0-1.0) k/uL APTT (22.0-30.0) sec Fibrinogen 179 L (200-500) mg/dL ABG pH (7.35-7.45) ABG pCO2 (35-45) mmHg ABG pO2 (83-108) mmHg ABG HCO3 (21-25) mmol/L ABG Total CO2 (19-24) mmol/L ABG O2 Saturation (94-97) % ABG Hematocrit (34.0-46.0) % ABG Ionized Calcium (4.5-5.3) mg/dL ABG Glucose (75-99) mg/dL ABG Lactic Acid (0.5-1.6) mmol/L Hemoglobin (13.0-17.5) gm/dL Sodium (137-145) mmol/L Chloride 108 H (98-107) mmol/L Creatinine 0.55 L (0.66-1.25) mg/dL Glucose 119 H (74-99) mg/dL POC Glucose (mg/dL) 124 H (70-110) mg/dL Hemoglobin A1c (0.0-6.0) % Calcium 7.3 L (8.4-10.2) mg/dL Magnesium 2.5 H (1.6-2.3) mg/dL AST (17-59) U/L Alkaline Phosphatase (38-126) U/L Total Protein 4.8 L (6.3-8.2) g/dL Albumin 2.9 L (3.5-5.0) g/dL Arterial Blood Glucose (75-99) mg/dL Crossmatch 05/14/22 05/14/2222 Range/Units 14:23 14:55 14:58 WBC 29.0 H (3.8-10.6) k/uL RBC 3.69 L (4.30-5.90) m/uL Hgb 12.1 L (13.0-17.5) gm/dL Hct 35.2 L (39.0-53.0) % Neutrophils # (1.3-7.7) k/uL Neutrophils # (Manual) (1.3-7.7) k/uL Lymphocytes # (1.0-4.8) k/uL Monocytes # (Manual) (0-1.0) k/uL APTT (22.0-30.0) sec Fibrinogen (200-500) mg/dL ABG pH 7.15 L* (7.35-7.45) ABG pCO2 63 H (35-45) mmHg ABG pO2 109 H (83-108) mmHg ABG HCO3 (21-25) mmol/L ABG Total CO2 (19-24) mmol/L ABG O2 Saturation 97.1 H (94-97) % ABG Hematocrit (34.0-46.0) % ABG Ionized Calcium (4.5-5.3) mg/dL ABG Glucose (75-99) mg/dL ABG Lactic Acid (0.5-1.6) mmol/L Hemoglobin (13.0-17.5) gm/dL Sodium (137-145) mmol/L Chloride (98-107) mmol/L Creatinine (0.66-1.25) mg/dL Glucose (74-99) mg/dL POC Glucose (mg/dL) 151 H (70-110) mg/dL Hemoglobin A1c (0.0-6.0) % Calcium (8.4-10.2) mg/dL Magnesium (1.6-2.3) mg/dL AST (17-59) U/L Alkaline Phosphatase (38-126) U/L Total Protein (6.3-8.2) g/dL Albumin (3.5-5.0) g/dL Arterial Blood Glucose (75-99) mg/dL Crossmatch 05/14/22 05/14/22 05/14/22 Range/Units 15:20 15:32 16:11 WBC 17.4 H (3.8-10.6) k/uL RBC 3.16 L (4.30-5.90) m/uL Hgb 10.1 L (13.0-17.5) gm/dL Hct 29.5 L (39.0-53.0) % Neutrophils # (1.3-7.7) k/uL Neutrophils # (Manual) (1.3-7.7) k/uL Lymphocytes # (1.0-4.8) k/uL Monocytes # (Manual) (0-1.0) k/uL APTT (22.0-30.0) sec Fibrinogen (200-500) mg/dL ABG pH (7.35-7.45) ABG pCO2 (35-45) mmHg ABG pO2 (83-108) mmHg ABG HCO3 (21-25) mmol/L ABG Total CO2 26 H (19-24) mmol/L ABG O2 Saturation 98.3 H (94-97) % ABG Hematocrit (34.0-46.0) % ABG Ionized Calcium (4.5-5.3) mg/dL ABG Glucose (75-99) mg/dL ABG Lactic Acid (0.5-1.6) mmol/L Hemoglobin (13.0-17.5) gm/dL Sodium (137-145) mmol/L Chloride (98-107) mmol/L Creatinine (0.66-1.25) mg/dL Glucose (74-99) mg/dL POC Glucose (mg/dL) 140 H (70-110) mg/dL Hemoglobin A1c (0.0-6.0) % Calcium (8.4-10.2) mg/dL Magnesium (1.6-2.3) mg/dL AST (17-59) U/L Alkaline Phosphatase (38-126) U/L Total Protein (6.3-8.2) g/dL Albumin (3.5-5.0) g/dL Arterial Blood Glucose (75-99) mg/dL Crossmatch 05/14/22 05/14/22 05/14/22 Range/Units 16:11 16:11 16:55 WBC (3.8-10.6) k/uL RBC (4.30-5.90) m/uL Hgb (13.0-17.5) gm/dL Hct (39.0-53.0) % Neutrophils # (1.3-7.7) k/uL Neutrophils # (Manual) (1.3-7.7) k/uL Lymphocytes # (1.0-4.8) k/uL Monocytes # (Manual) (0-1.0) k/uL APTT (22.0-30.0) sec Fibrinogen (200-500) mg/dL ABG pH (7.35-7.45) ABG pCO2 (35-45) mmHg ABG pO2 (83-108) mmHg ABG HCO3 (21-25) mmol/L ABG Total CO2 (19-24) mmol/L ABG O2 Saturation (94-97) % ABG Hematocrit (34.0-46.0) % ABG Ionized Calcium (4.5-5.3) mg/dL ABG Glucose (75-99) mg/dL ABG Lactic Acid (0.5-1.6) mmol/L Hemoglobin (13.0-17.5) gm/dL Sodium (137-145) mmol/L Chloride (98-107) mmol/L Creatinine (0.66-1.25) mg/dL Glucose (74-99) mg/dL POC Glucose (mg/dL) 121 H 121 H (70-110) mg/dL Hemoglobin A1c 9.6 H (0.0-6.0) % Calcium (8.4-10.2) mg/dL Magnesium (1.6-2.3) mg/dL AST (17-59) U/L Alkaline Phosphatase (38-126) U/L Total Protein (6.3-8.2) g/dL Albumin (3.5-5.0) g/dL Arterial Blood Glucose (75-99) mg/dL Crossmatch 05/14/22 05/14/22 05/14/22 Range/Units 17:55 18:21 18:53 WBC (3.8-10.6) k/uL RBC (4.30-5.90) m/uL Hgb (13.0-17.5) gm/dL Hct (39.0-53.0) % Neutrophils # (1.3-7.7) k/uL Neutrophils # (Manual) (1.3-7.7) k/uL Lymphocytes # (1.0-4.8) k/uL Monocytes # (Manual) (0-1.0) k/uL APTT (22.0-30.0) sec Fibrinogen (200-500) mg/dL ABG pH (7.35-7.45) ABG pCO2 (35-45) mmHg ABG pO2 160 H (83-108) mmHg ABG HCO3 26 H (21-25) mmol/L ABG Total CO2 27 H (19-24) mmol/L ABG O2 Saturation 99.7 H (94-97) % ABG Hematocrit (34.0-46.0) % ABG Ionized Calcium (4.5-5.3) mg/dL ABG Glucose (75-99) mg/dL ABG Lactic Acid (0.5-1.6) mmol/L Hemoglobin (13.0-17.5) gm/dL Sodium (137-145) mmol/L Chloride (98-107) mmol/L Creatinine (0.66-1.25) mg/dL Glucose (74-99) mg/dL POC Glucose (mg/dL) 129 H 144 H (70-110) mg/dL Hemoglobin A1c (0.0-6.0) % Calcium (8.4-10.2) mg/dL Magnesium (1.6-2.3) mg/dL AST (17-59) U/L Alkaline Phosphatase (38-126) U/L Total Protein (6.3-8.2) g/dL Albumin (3.5-5.0) g/dL Arterial Blood Glucose (75-99) mg/dL Crossmatch 05/14/22 05/14/22 05/14/22 Range/Units 19:15 19:53 21:02 WBC 16.3 H (3.8-10.6) k/uL RBC 2.89 L (4.30-5.90) m/uL Hgb 9.6 L (13.0-17.5) gm/dL Hct 26.9 L (39.0-53.0) % Neutrophils # 14.4 H (1.3-7.7) k/uL Neutrophils # (Manual) (1.3-7.7) k/uL Lymphocytes # 0.7 L (1.0-4.8) k/uL Monocytes # (Manual) (0-1.0) k/uL APTT (22.0-30.0) sec Fibrinogen (200-500) mg/dL ABG pH (7.35-7.45) ABG pCO2 (35-45) mmHg ABG pO2 (83-108) mmHg ABG HCO3 (21-25) mmol/L ABG Total CO2 (19-24) mmol/L ABG O2 Saturation (94-97) % ABG Hematocrit (34.0-46.0) % ABG Ionized Calcium (4.5-5.3) mg/dL ABG Glucose (75-99) mg/dL ABG Lactic Acid (0.5-1.6) mmol/L Hemoglobin (13.0-17.5) gm/dL Sodium (137-145) mmol/L Chloride (98-107) mmol/L Creatinine (0.66-1.25) mg/dL Glucose (74-99) mg/dL POC Glucose (mg/dL) 151 H 155 H (70-110) mg/dL Hemoglobin A1c (0.0-6.0) % Calcium (8.4-10.2) mg/dL Magnesium (1.6-2.3) mg/dL AST (17-59) U/L Alkaline Phosphatase (38-126) U/L Total Protein (6.3-8.2) g/dL Albumin (3.5-5.0) g/dL Arterial Blood Glucose (75-99) mg/dL Crossmatch 05/14/22 05/14/22 05/15/22 Range/Units 22:02 22:56 00:09 WBC (3.8-10.6) k/uL RBC (4.30-5.90) m/uL Hgb (13.0-17.5) gm/dL Hct (39.0-53.0) % Neutrophils # (1.3-7.7) k/uL Neutrophils # (Manual) (1.3-7.7) k/uL Lymphocytes # (1.0-4.8) k/uL Monocytes # (Manual) (0-1.0) k/uL APTT (22.0-30.0) sec Fibrinogen (200-500) mg/dL ABG pH (7.35-7.45) ABG pCO2 (35-45) mmHg ABG pO2 (83-108) mmHg ABG HCO3 (21-25) mmol/L ABG Total CO2 (19-24) mmol/L ABG O2 Saturation (94-97) % ABG Hematocrit (34.0-46.0) % ABG Ionized Calcium (4.5-5.3) mg/dL ABG Glucose (75-99) mg/dL ABG Lactic Acid (0.5-1.6) mmol/L Hemoglobin (13.0-17.5) gm/dL Sodium (137-145) mmol/L Chloride (98-107) mmol/L Creatinine (0.66-1.25) mg/dL Glucose (74-99) mg/dL POC Glucose (mg/dL) 152 H 140 H 132 H (70-110) mg/dL Hemoglobin A1c (0.0-6.0) % Calcium (8.4-10.2) mg/dL Magnesium (1.6-2.3) mg/dL AST (17-59) U/L Alkaline Phosphatase (38-126) U/L Total Protein (6.3-8.2) g/dL Albumin (3.5-5.0) g/dL Arterial Blood Glucose (75-99) mg/dL Crossmatch 05/15/22 05/15/22 05/15/22 Range/Units 01:04 02:12 03:10 WBC (3.8-10.6) k/uL RBC (4.30-5.90) m/uL Hgb (13.0-17.5) gm/dL Hct (39.0-53.0) % Neutrophils # (1.3-7.7) k/uL Neutrophils # (Manual) (1.3-7.7) k/uL Lymphocytes # (1.0-4.8) k/uL Monocytes # (Manual) (0-1.0) k/uL APTT (22.0-30.0) sec Fibrinogen (200-500) mg/dL ABG pH (7.35-7.45) ABG pCO2 (35-45) mmHg ABG pO2 (83-108) mmHg ABG HCO3 (21-25) mmol/L ABG Total CO2 (19-24) mmol/L ABG O2 Saturation (94-97) % ABG Hematocrit (34.0-46.0) % ABG Ionized Calcium (4.5-5.3) mg/dL ABG Glucose (75-99) mg/dL ABG Lactic Acid (0.5-1.6) mmol/L Hemoglobin (13.0-17.5) gm/dL Sodium (137-145) mmol/L Chloride (98-107) mmol/L Creatinine (0.66-1.25) mg/dL Glucose (74-99) mg/dL POC Glucose (mg/dL) 140 H 126 H 126 H (70-110) mg/dL Hemoglobin A1c (0.0-6.0) % Calcium (8.4-10.2) mg/dL Magnesium (1.6-2.3) mg/dL AST (17-59) U/L Alkaline Phosphatase (38-126) U/L Total Protein (6.3-8.2) g/dL Albumin (3.5-5.0) g/dL Arterial Blood Glucose (75-99) mg/dL Crossmatch 05/15/22 05/15/22 05/15/22 Range/Units 04:15 04:15 04:18 WBC 15.9 H (3.8-10.6) k/uL RBC 2.88 L (4.30-5.90) m/uL Hgb 9.2 L (13.0-17.5) gm/dL Hct 27.0 L (39.0-53.0) % Neutrophils # (1.3-7.7) k/uL Neutrophils # (Manual) 12.00 H (1.3-7.7) k/uL Lymphocytes # (1.0-4.8) k/uL Monocytes # (Manual) 1.43 H (0-1.0) k/uL APTT (22.0-30.0) sec Fibrinogen (200-500) mg/dL ABG pH (7.35-7.45) ABG pCO2 (35-45) mmHg ABG pO2 (83-108) mmHg ABG HCO3 (21-25) mmol/L ABG Total CO2 (19-24) mmol/L ABG O2 Saturation (94-97) % ABG Hematocrit (34.0-46.0) % ABG Ionized Calcium (4.5-5.3) mg/dL ABG Glucose (75-99) mg/dL ABG Lactic Acid (0.5-1.6) mmol/L Hemoglobin (13.0-17.5) gm/dL Sodium 135 L (137-145) mmol/L Chloride (98-107) mmol/L Creatinine 0.52 L (0.66-1.25) mg/dL Glucose 124 H (74-99) mg/dL POC Glucose (mg/dL) 142 H (70-110) mg/dL Hemoglobin A1c (0.0-6.0) % Calcium 7.6 L (8.4-10.2) mg/dL Magnesium (1.6-2.3) mg/dL AST 64 H (17-59) U/L Alkaline Phosphatase 37 L (38-126) U/L Total Protein 5.0 L (6.3-8.2) g/dL Albumin 3.4 L (3.5-5.0) g/dL Arterial Blood Glucose (75-99) mg/dL Crossmatch 05/15/22 05/15/22 05/15/22 Range/Units 05:11 06:14 07:04 WBC (3.8-10.6) k/uL RBC (4.30-5.90) m/uL Hgb (13.0-17.5) gm/dL Hct (39.0-53.0) % Neutrophils # (1.3-7.7) k/uL Neutrophils # (Manual) (1.3-7.7) k/uL Lymphocytes # (1.0-4.8) k/uL Monocytes # (Manual) (0-1.0) k/uL APTT (22.0-30.0) sec Fibrinogen (200-500) mg/dL ABG pH (7.35-7.45) ABG pCO2 (35-45) mmHg ABG pO2 (83-108) mmHg ABG HCO3 (21-25) mmol/L ABG Total CO2 (19-24) mmol/L ABG O2 Saturation (94-97) % ABG Hematocrit (34.0-46.0) % ABG Ionized Calcium (4.5-5.3) mg/dL ABG Glucose (75-99) mg/dL ABG Lactic Acid (0.5-1.6) mmol/L Hemoglobin (13.0-17.5) gm/dL Sodium (137-145) mmol/L Chloride (98-107) mmol/L Creatinine (0.66-1.25) mg/dL Glucose (74-99) mg/dL POC Glucose (mg/dL) 140 H 147 H 187 H (70-110) mg/dL Hemoglobin A1c (0.0-6.0) % Calcium (8.4-10.2) mg/dL Magnesium (1.6-2.3) mg/dL AST (17-59) U/L Alkaline Phosphatase (38-126) U/L Total Protein (6.3-8.2) g/dL Albumin (3.5-5.0) g/dL Arterial Blood Glucose (75-99) mg/dL Crossmatch 05/15/22 05/15/22 Range/Units 08:31 09:25 WBC (3.8-10.6) k/uL RBC (4.30-5.90) m/uL Hgb (13.0-17.5) gm/dL Hct (39.0-53.0) % Neutrophils # (1.3-7.7) k/uL Neutrophils # (Manual) (1.3-7.7) k/uL Lymphocytes # (1.0-4.8) k/uL Monocytes # (Manual) (0-1.0) k/uL APTT (22.0-30.0) sec Fibrinogen (200-500) mg/dL ABG pH (7.35-7.45) ABG pCO2 (35-45) mmHg ABG pO2 (83-108) mmHg ABG HCO3 (21-25) mmol/L ABG Total CO2 (19-24) mmol/L ABG O2 Saturation (94-97) % ABG Hematocrit (34.0-46.0) % ABG Ionized Calcium (4.5-5.3) mg/dL ABG Glucose (75-99) mg/dL ABG Lactic Acid (0.5-1.6) mmol/L Hemoglobin (13.0-17.5) gm/dL Sodium (137-145) mmol/L Chloride (98-107) mmol/L Creatinine (0.66-1.25) mg/dL Glucose (74-99) mg/dL POC Glucose (mg/dL) 189 H 173 H (70-110) mg/dL Hemoglobin A1c (0.0-6.0) % Calcium (8.4-10.2) mg/dL Magnesium (1.6-2.3) mg/dL AST (17-59) U/L Alkaline Phosphatase (38-126) U/L Total Protein (6.3-8.2) g/dL Albumin (3.5-5.0) g/dL Arterial Blood Glucose (75-99) mg/dL Crossmatch - Imaging and Cardiology Chest x-ray: report reviewed, image reviewed Assessment and Plan Assessment: 1. Triple-vessel coronary artery disease with recent non-STEMI, status post four-vessel CABG 2. History of hypertension 3. Poorly controlled insulin-dependent diabetes, preoperative hemoglobin A1c 9.6% 4. Previous tobacco dependence with recent cessation, preoperative FEV1 85% predicted 5. Splenectomy 6. Covid infection in summer 2021, remains unvaccinated 7. Postoperative acute blood loss anemia, expected 8. Leukocytosis, expected Plan: 1. Continue aspirin, statin, Plavix, beta messi therapy. Will increase beta messi therapy as tolerated 2. Continue calcium channel messi for radial artery spasm prophylaxis, will transition to oral 3. Wean O2 as tolerated. Encourage incentive spirometry use 10 times every hour while awake. Bronchodilators per pulmonology 4. Increase activity, ambulate as tolerated. PT/OT/cardiac rehab consulted 5. Will monitor daily labs and x-rays. Electrolyte replacement per protocol 6. GI/DVT prophylaxis 7. Pain control with current medication regimen 8. Insulin management per internal medicine. Patient needs tight blood sugar control to prevent infection and promote healing 9. Discontinue Fountain. Connect Cordis to continuous CVP monitoring 10. Continue chest tubes for another 24 hours 11. Continue Abernathy catheter for another 24 hours for strict accurate intake and output. Daily weights 12. Continue to encourage smoking cessation 13. More recommendations to follow as patient progresses
[2022-05-15] MEDS: ACETAMINOPHEN TAB 325 MG TAB PO PRN (10:10)
[2022-05-15 10:21] LABS: Glucose,Whole Blood 176 mg/dL (70-110)
[2022-05-15 10:37] VITALS: BMI 27.3
[2022-05-15 11:09] LABS: Glucose,Whole Blood 154 mg/dL (70-110)
[2022-05-15 12:00] LABS: Glucose,Whole Blood 143 mg/dL (70-110)
[2022-05-15] MEDS: amLODIPine 2.5 MG TAB PO SCH (12:44)
[2022-05-15] MEDS: LACTATED RINGERS 1,000 ML IV SCH (12:46)
[2022-05-15] MEDS: INSULIN REGULAR 100 UNIT in SODIUM CHLORIDE 0.9% 100 ML IV SCH (12:58)
[2022-05-15 13:04] LABS: Glucose,Whole Blood 146 mg/dL (70-110)
[2022-05-15 14:16] LABS: Glucose,Whole Blood 151 mg/dL (70-110)
[2022-05-15 15:18] LABS: Glucose,Whole Blood 142 mg/dL (70-110)
--- NOTE | 2022-05-15 15:20 | P.PN ---
Subjective Progress Note Date: 05/15/22 This is a 46-year-old male patient with known history of triple-vessel coronary artery disease, previous non-ST segment elevation myocardial infarction oh underwent four-vessel bypass surgery. The patient arrived to the intensive care unit following the surgery. Immediately after the arrival, the patient was found to have some hypertension and shaking. He was not sick is a mechanical ventilator. Based on that, he started on propofol which is currently running at 50 and Precedex is running at 0.0 0.2 mcg/kg/h. He is most interested a mechanical ventilator. At this point in time he is exchanging his volumes and is on assist control at the rate of 24 with a tidal volume of 500 and FiO2 of 60% with PEEP of 10. The PEEP was increased as the patient was having excessive amount of output from the chest tubes that were inserted in the operating room. The patient currently has 1 mediastinal and one by 201 left pleural. Most of the output is from the pleural chest tube. Mediastinal output is also in order of 600 mL, urine output is in the order out 600 mL. Initial blood gas was poor and the necessity ventilator changes were done and we are awaiting the follow-up blood gases. His current cardiac rhythm is sinus. His pulmonary artery pressures of 25/12. Cardiac output is at 8.5 with an index of 4.7. Urine output is adequate in the order of 30-40 mL an hour. He is on IV fluids cu rrently running at 50 mL an hour of normal saline and he had 500 mL of albumin 5% postop. He is blood work at this point in time. The white cell count is at 29 and a hemoglobin of 12.1 and platelets of 221. Chest x-ray showing atelectatic changes in the right midlung and the left lower lobe area. He was admitted location. The patient is wondering if catheter which is an excellent location. 42 was also in good location. No airspace disease. No pneumothorax. Chest is at location. Insulin is currently at 2 units an hour On today's evaluation of 05/15/2022, the patient is calm and comfortable sitting up on a chair on room air oxygen. Noted the patient was extubated yesterday without any major difficulties. On today's evaluation, the patient is awake and alert and following commands and answering questions. He is using the incentive spirometer and his falling approximately 1000. He has excellent urine output and the order of 75 mL an hour. His cardiac output is at 7.7 with an index of 4.3. Pulmonary artery pressures of 27/6. The patient's cardiac rhythm is some mild sinus tachycardia. Otherwise, he is on insulin 5 units an hour for tight blood sugar control. He had a chest tubes in place and the B cell chest tube has drained approximately 750 and the right and left pleural chest tubes are connected and they are drained around 1000 since the patient arrived from the operating room. On today's blood work, the white cell count is 15.9 with a hemoglobin of 8.2 and a platelet count of 174, sodium is at 135, bicarbonate 26, potassium level III.8, BUN is 16 with a creatinine of 0.5. The chest x-ray from today shows postsurgical changes, atelectatic changes lung bases and the chest tubes are all in good location. No evidence of any pneumothorax. Objective - Vital Signs Vital signs: Vital Signs Temp 100.6 F H 05/15/22 08:00 Pulse 113 H 05/15/22 09:00 Resp 53 H 05/15/22 09:00 BP 109/69 05/15/22 08:00 Pulse Ox 95 05/15/22 09:00 FiO2 50 05/14/22 17:56 Intake & Output 05/14/22 05/15/22 05/15/22 18:59 06:59 18:59 Intake Total 0666.141 4290.996 584.802 Output Total 2580 1745 225 Balance -1114.753 -397.004 359.802 Weight 74.7 kg Intake: IV 1346.0 1318 332.0 ACETAMINOPHEN IV (For NPO 100 100 ) 1,000 mg In Empty Bag 1 bag @ 400 mls/hr IVPB Q6HR [facility] Rx#:[id number] Albumin Human 5% 250 ml 750 250 In Empty Bag 1 bag @ 250 mls/hr IVPB Q1HR PRN Rx#: [id number] Diltiazem 125 mg In 25 5.0 Sodium Chloride 0.9% 100 ml @ 5 MG/HR 5 mls/hr IV .Q24H [facility] Rx#:[id number] Lactated Ringers 1,000 ml 250 600 150 @ 20 mls/hr IV .Q24H [facility] Rx#:[id number] Magnesium Sulfate-D5w Pmx 100 1 gm In Dextrose/Water 1 100ml.bag @ 100 mls/hr IVPB Q1H [facility] Rx#: [id number] Nitroglycerin-D5w Pmx 50 3.0 mg In Dextrose/Water 1 250ml.bag @ 5 MCG/MIN 1.5 mls/hr IV .Q24H [facility] Rx#: [id number] ceFAZolin 2 gm In Sodium 50 50 Chloride 0.9% 50 ml @ 100 mls/hr IVPB Q8HR [facility] Rx# :[id number] co/ci 120 210 pressure bag 45 108 27 Intake, IV Titration 119.247 29.996 12.802 Amount Clevidipine Butyrate 25 7.134 mg In Empty Bag 1 bag @ 1 MG/HR 2 mls/hr IV .Q24H [facility] Rx#:[id number] Dexmedetomidine/0.9% NaCl 15.272 (Pmx) 400 mcg In Empty Bag 1 bag @ Titrate IV . Q0M [facility] Rx#:[id number] Diltiazem 125 mg In 11.042 Sodium Chloride 0.9% 100 ml @ 2.5 MG/HR 2.5 mls/hr IV .Q24H [facility] Rx#: [id number] Insulin Regular 100 unit 7.686 18.954 12.802 In Sodium Chloride 0.9% 100 ml @ Per Protocol IV .Q0M [facility] Rx#:[id number] ceFAZolin 2 gm In Sodium 50 Chloride 0.9% 50 ml @ 100 mls/hr IVPB Q8HR [facility] Rx# :[id number] propofoL 1,000 mg In 39.155 Empty Bag 1 bag @ Titrate IV .Q0M [facility] Rx#: [id number] Oral 240 Output: Drainage 890 710 40 Medial 410 220 10 left and right pleural 480 490 30 Urine 790 1035 185 Estimated Blood Loss 900 Other: Voiding Method Indwelling Catheter Indwelling Catheter ABP, PAP, CO, CI - Last Documented Arterial Blood Pressure 139/62 Pulmonary Artery Pressure 24/3 Cardiac Output 6.8 Cardiac Index 3.8 - Exam Gen. appearance , comfortable and the patient is currently on room air oxygen Head exam was generally normal. There was no scleral icterus or corneal arcus. Mucous membranes were moist. Neck was supple and without jugular venous distension, thyromegaly, or carotid bruits. Carotids were easily palpable bilaterally. There was no adenopathy. Orogastric tube is in place and the patient has a right IJ [place]-Mya catheter which is also in place Lungs were clear to auscultation and percussion, and with normal diaphragmatic excursion. No wheezes or rales were noted. All of the chest about in place and the patient has a mediastinal, right pleural in the left lower chest tube and the sternum is stable clean and intact. Abdominal exam revealed normal bowel sounds. The abdomen was soft, non-tender, and without masses, organomegaly, or appreciable enlargement of the abdominal aorta. Cardiac exam revealed the PMI to be normally situated and sized. The rhythm was regular and no extrasystoles were noted during several minutes of auscultation. The first and second heart sounds were normal and physiologic splitting of the second heart sound was noted. There were no murmurs, rubs, clicks, or gallops. Examination of the extremities revealed easily palpable radial, femoral and pedal pulses. There was no cyanosis, clubbing or edema. Examination of the skin revealed no evidence of significant rashes, suspicious appearing nevi or other concerning lesions. The patient has a right femoral Art catheter in place Neurologically alert and oriented 3 - Labs CBC & Chem 7: 05/15/22 04:15 05/15/22 04:15 Labs: Abnormal Lab Results - Last 24 Hours (Table) 05/10/22 05/14/22 05/14/22 Range/Units 10:39 08:44 09:56 WBC (3.8-10.6) k/uL RBC (4.30-5.90) m/uL Hgb (13.0-17.5) gm/dL Hct (39.0-53.0) % Neutrophils # (1.3-7.7) k/uL Neutrophils # (Manual) (1.3-7.7) k/uL Lymphocytes # (1.0-4.8) k/uL Monocytes # (Manual) (0-1.0) k/uL APTT (22.0-30.0) sec Fibrinogen (200-500) mg/dL ABG pH (7.35-7.45) ABG pCO2 (35-45) mmHg ABG pO2 192 H 185 H (83-108) mmHg ABG HCO3 28 H 27 H (21-25) mmol/L ABG Total CO2 29 H 28 H (19-24) mmol/L ABG O2 Saturation 99.6 H 99.5 H (94-97) % ABG Hematocrit (34.0-46.0) % ABG Ionized Calcium (4.5-5.3) mg/dL ABG Glucose 162 H 173 H (75-99) mg/dL ABG Lactic Acid 1.9 H 1.7 H (0.5-1.6) mmol/L Hemoglobin 12.8 L 12.8 L (13.0-17.5) gm/dL Sodium (137-145) mmol/L Chloride (98-107) mmol/L Creatinine (0.66-1.25) mg/dL Glucose (74-99) mg/dL POC Glucose (mg/dL) (70-110) mg/dL Hemoglobin A1c (0.0-6.0) % Calcium (8.4-10.2) mg/dL Magnesium (1.6-2.3) mg/dL AST (17-59) U/L Alkaline Phosphatase (38-126) U/L Total Protein (6.3-8.2) g/dL Albumin (3.5-5.0) g/dL Arterial Blood Glucose 162 H 173 H (75-99) mg/dL Crossmatch See Detail 05/14/22 05/14/22 05/14/22 Range/Units 10:59 11:36 12:00 WBC (3.8-10.6) k/uL RBC (4.30-5.90) m/uL Hgb (13.0-17.5) gm/dL Hct (39.0-53.0) % Neutrophils # (1.3-7.7) k/uL Neutrophils # (Manual) (1.3-7.7) k/uL Lymphocytes # (1.0-4.8) k/uL Monocytes # (Manual) (0-1.0) k/uL APTT (22.0-30.0) sec Fibrinogen (200-500) mg/dL ABG pH (7.35-7.45) ABG pCO2 (35-45) mmHg ABG pO2 322 H 268 H 384 H (83-108) mmHg ABG HCO3 (21-25) mmol/L ABG Total CO2 27 H 27 H 26 H (19-24) mmol/L ABG O2 Saturation 99.8 H 99.6 H 100.0 H (94-97) % ABG Hematocrit 27 L 30 L 29 L (34.0-46.0) % ABG Ionized Calcium 4.0 L 4.1 L 4.2 L (4.5-5.3) mg/dL ABG Glucose 168 H 211 H 208 H (75-99) mg/dL ABG Lactic Acid 2.3 H* 2.1 H 2.0 H (0.5-1.6) mmol/L Hemoglobin 8.7 L 9.7 L 9.6 L (13.0-17.5) gm/dL Sodium (137-145) mmol/L Chloride (98-107) mmol/L Creatinine (0.66-1.25) mg/dL Glucose (74-99) mg/dL POC Glucose (mg/dL) (70-110) mg/dL Hemoglobin A1c (0.0-6.0) % Calcium (8.4-10.2) mg/dL Magnesium (1.6-2.3) mg/dL AST (17-59) U/L Alkaline Phosphatase (38-126) U/L Total Protein (6.3-8.2) g/dL Albumin (3.5-5.0) g/dL Arterial Blood Glucose 168 H 211 H 208 H (75-99) mg/dL Crossmatch 05/14/22 05/14/22 05/14/22 Range/Units 13:17 13:57 13:57 WBC 23.8 H (3.8-10.6) k/uL RBC 3.76 L (4.30-5.90) m/uL Hgb 12.1 L D (13.0-17.5) gm/dL Hct 35.3 L (39.0-53.0) % Neutrophils # (1.3-7.7) k/uL Neutrophils # (Manual) 19.00 H (1.3-7.7) k/uL Lymphocytes # (1.0-4.8) k/uL Monocytes # (Manual) 2.14 H (0-1.0) k/uL APTT 41.4 H (22.0-30.0) sec Fibrinogen (200-500) mg/dL ABG pH 7.34 L (7.35-7.45) ABG pCO2 48 H (35-45) mmHg ABG pO2 195 H (83-108) mmHg ABG HCO3 26 H (21-25) mmol/L ABG Total CO2 28 H (19-24) mmol/L ABG O2 Saturation 99.3 H (94-97) % ABG Hematocrit (34.0-46.0) % ABG Ionized Calcium 4.2 L (4.5-5.3) mg/dL ABG Glucose 147 H (75-99) mg/dL ABG Lactic Acid 2.1 H (0.5-1.6) mmol/L Hemoglobin 11.2 L (13.0-17.5) gm/dL Sodium (137-145) mmol/L Chloride (98-107) mmol/L Creatinine (0.66-1.25) mg/dL Glucose (74-99) mg/dL POC Glucose (mg/dL) (70-110) mg/dL Hemoglobin A1c (0.0-6.0) % Calcium (8.4-10.2) mg/dL Magnesium (1.6-2.3) mg/dL AST (17-59) U/L Alkaline Phosphatase (38-126) U/L Total Protein (6.3-8.2) g/dL Albumin (3.5-5.0) g/dL Arterial Blood Glucose 147 H (75-99) mg/dL Crossmatch 05/14/22 05/14/22 05/14/22 Range/Units 13:57 13:57 13:58 WBC (3.8-10.6) k/uL RBC (4.30-5.90) m/uL Hgb (13.0-17.5) gm/dL Hct (39.0-53.0) % Neutrophils # (1.3-7.7) k/uL Neutrophils # (Manual) (1.3-7.7) k/uL Lymphocytes # (1.0-4.8) k/uL Monocytes # (Manual) (0-1.0) k/uL APTT (22.0-30.0) sec Fibrinogen 179 L (200-500) mg/dL ABG pH (7.35-7.45) ABG pCO2 (35-45) mmHg ABG pO2 (83-108) mmHg ABG HCO3 (21-25) mmol/L ABG Total CO2 (19-24) mmol/L ABG O2 Saturation (94-97) % ABG Hematocrit (34.0-46.0) % ABG Ionized Calcium (4.5-5.3) mg/dL ABG Glucose (75-99) mg/dL ABG Lactic Acid (0.5-1.6) mmol/L Hemoglobin (13.0-17.5) gm/dL Sodium (137-145) mmol/L Chloride 108 H (98-107) mmol/L Creatinine 0.55 L (0.66-1.25) mg/dL Glucose 119 H (74-99) mg/dL POC Glucose (mg/dL) 124 H (70-110) mg/dL Hemoglobin A1c (0.0-6.0) % Calcium 7.3 L (8.4-10.2) mg/dL Magnesium 2.5 H (1.6-2.3) mg/dL AST (17-59) U/L Alkaline Phosphatase (38-126) U/L Total Protein 4.8 L (6.3-8.2) g/dL Albumin 2.9 L (3.5-5.0) g/dL Arterial Blood Glucose (75-99) mg/dL Crossmatch 05/14/22 05/14/22 05/14/22 Range/Units 14:23 14:55 14:58 WBC 29.0 H (3.8-10.6) k/uL RBC 3.69 L (4.30-5.90) m/uL Hgb 12.1 L (13.0-17.5) gm/dL Hct 35.2 L (39.0-53.0) % Neutrophils # (1.3-7.7) k/uL Neutrophils # (Manual) (1.3-7.7) k/uL Lymphocytes # (1.0-4.8) k/uL Monocytes # (Manual) (0-1.0) k/uL APTT (22.0-30.0) sec Fibrinogen (200-500) mg/dL ABG pH 7.15 L* (7.35-7.45) ABG pCO2 63 H (35-45) mmHg ABG pO2 109 H (83-108) mmHg ABG HCO3 (21-25) mmol/L ABG Total CO2 (19-24) mmol/L ABG O2 Saturation 97.1 H (94-97) % ABG Hematocrit (34.0-46.0) % ABG Ionized Calcium (4.5-5.3) mg/dL ABG Glucose (75-99) mg/dL ABG Lactic Acid (0.5-1.6) mmol/L Hemoglobin (13.0-17.5) gm/dL Sodium (137-145) mmol/L Chloride (98-107) mmol/L Creatinine (0.66-1.25) mg/dL Glucose (74-99) mg/dL POC Glucose (mg/dL) 151 H (70-110) mg/dL Hemoglobin A1c (0.0-6.0) % Calcium (8.4-10.2) mg/dL Magnesium (1.6-2.3) mg/dL AST (17-59) U/L Alkaline Phosphatase (38-126) U/L Total Protein (6.3-8.2) g/dL Albumin (3.5-5.0) g/dL Arterial Blood Glucose (75-99) mg/dL Crossmatch 05/14/22 05/14/22 05/14/22 Range/Units 15:20 15:32 16:11 WBC 17.4 H (3.8-10.6) k/uL RBC 3.16 L (4.30-5.90) m/uL Hgb 10.1 L (13.0-17.5) gm/dL Hct 29.5 L (39.0-53.0) % Neutrophils # (1.3-7.7) k/uL Neutrophils # (Manual) (1.3-7.7) k/uL Lymphocytes # (1.0-4.8) k/uL Monocytes # (Manual) (0-1.0) k/uL APTT (22.0-30.0) sec Fibrinogen (200-500) mg/dL ABG pH (7.35-7.45) ABG pCO2 (35-45) mmHg ABG pO2 (83-108) mmHg ABG HCO3 (21-25) mmol/L ABG Total CO2 26 H (19-24) mmol/L ABG O2 Saturation 98.3 H (94-97) % ABG Hematocrit (34.0-46.0) % ABG Ionized Calcium (4.5-5.3) mg/dL ABG Glucose (75-99) mg/dL ABG Lactic Acid (0.5-1.6) mmol/L Hemoglobin (13.0-17.5) gm/dL Sodium (137-145) mmol/L Chloride (98-107) mmol/L Creatinine (0.66-1.25) mg/dL Glucose (74-99) mg/dL POC Glucose (mg/dL) 140 H (70-110) mg/dL Hemoglobin A1c (0.0-6.0) % Calcium (8.4-10.2) mg/dL Magnesium (1.6-2.3) mg/dL AST (17-59) U/L Alkaline Phosphatase (38-126) U/L Total Protein (6.3-8.2) g/dL Albumin (3.5-5.0) g/dL Arterial Blood Glucose (75-99) mg/dL Crossmatch 05/14/22 05/14/22 05/14/22 Range/Units 16:11 16:11 16:55 WBC (3.8-10.6) k/uL RBC (4.30-5.90) m/uL Hgb (13.0-17.5) gm/dL Hct (39.0-53.0) % Neutrophils # (1.3-7.7) k/uL Neutrophils # (Manual) (1.3-7.7) k/uL Lymphocytes # (1.0-4.8) k/uL Monocytes # (Manual) (0-1.0) k/uL APTT (22.0-30.0) sec Fibrinogen (200-500) mg/dL ABG pH (7.35-7.45) ABG pCO2 (35-45) mmHg ABG pO2 (83-108) mmHg ABG HCO3 (21-25) mmol/L ABG Total CO2 (19-24) mmol/L ABG O2 Saturation (94-97) % ABG Hematocrit (34.0-46.0) % ABG Ionized Calcium (4.5-5.3) mg/dL ABG Glucose (75-99) mg/dL ABG Lactic Acid (0.5-1.6) mmol/L Hemoglobin (13.0-17.5) gm/dL Sodium (137-145) mmol/L Chloride (98-107) mmol/L Creatinine (0.66-1.25) mg/dL Glucose (74-99) mg/dL POC Glucose (mg/dL) 121 H 121 H (70-110) mg/dL Hemoglobin A1c 9.6 H (0.0-6.0) % Calcium (8.4-10.2) mg/dL Magnesium (1.6-2.3) mg/dL AST (17-59) U/L Alkaline Phosphatase (38-126) U/L Total Protein (6.3-8.2) g/dL Albumin (3.5-5.0) g/dL Arterial Blood Glucose (75-99) mg/dL Crossmatch 05/14/22 05/14/22 05/14/22 Range/Units 17:55 18:21 18:53 WBC (3.8-10.6) k/uL RBC (4.30-5.90) m/uL Hgb (13.0-17.5) gm/dL Hct (39.0-53.0) % Neutrophils # (1.3-7.7) k/uL Neutrophils # (Manual) (1.3-7.7) k/uL Lymphocytes # (1.0-4.8) k/uL Monocytes # (Manual) (0-1.0) k/uL APTT (22.0-30.0) sec Fibrinogen (200-500) mg/dL ABG pH (7.35-7.45) ABG pCO2 (35-45) mmHg ABG pO2 160 H (83-108) mmHg ABG HCO3 26 H (21-25) mmol/L ABG Total CO2 27 H (19-24) mmol/L ABG O2 Saturation 99.7 H (94-97) % ABG Hematocrit (34.0-46.0) % ABG Ionized Calcium (4.5-5.3) mg/dL ABG Glucose (75-99) mg/dL ABG Lactic Acid (0.5-1.6) mmol/L Hemoglobin (13.0-17.5) gm/dL Sodium (137-145) mmol/L Chloride (98-107) mmol/L Creatinine (0.66-1.25) mg/dL Glucose (74-99) mg/dL POC Glucose (mg/dL) 129 H 144 H (70-110) mg/dL Hemoglobin A1c (0.0-6.0) % Calcium (8.4-10.2) mg/dL Magnesium (1.6-2.3) mg/dL AST (17-59) U/L Alkaline Phosphatase (38-126) U/L Total Protein (6.3-8.2) g/dL Albumin (3.5-5.0) g/dL Arterial Blood Glucose (75-99) mg/dL Crossmatch 05/14/22 05/14/22 05/14/22 Range/Units 19:15 19:53 21:02 WBC 16.3 H (3.8-10.6) k/uL RBC 2.89 L (4.30-5.90) m/uL Hgb 9.6 L (13.0-17.5) gm/dL Hct 26.9 L (39.0-53.0) % Neutrophils # 14.4 H (1.3-7.7) k/uL Neutrophils # (Manual) (1.3-7.7) k/uL Lymphocytes # 0.7 L (1.0-4.8) k/uL Monocytes # (Manual) (0-1.0) k/uL APTT (22.0-30.0) sec Fibrinogen (200-500) mg/dL ABG pH (7.35-7.45) ABG pCO2 (35-45) mmHg ABG pO2 (83-108) mmHg ABG HCO3 (21-25) mmol/L ABG Total CO2 (19-24) mmol/L ABG O2 Saturation (94-97) % ABG Hematocrit (34.0-46.0) % ABG Ionized Calcium (4.5-5.3) mg/dL ABG Glucose (75-99) mg/dL ABG Lactic Acid (0.5-1.6) mmol/L Hemoglobin (13.0-17.5) gm/dL Sodium (137-145) mmol/L Chloride (98-107) mmol/L Creatinine (0.66-1.25) mg/dL Glucose (74-99) mg/dL POC Glucose (mg/dL) 151 H 155 H (70-110) mg/dL Hemoglobin A1c (0.0-6.0) % Calcium (8.4-10.2) mg/dL Magnesium (1.6-2.3) mg/dL AST (17-59) U/L Alkaline Phosphatase (38-126) U/L Total Protein (6.3-8.2) g/dL Albumin (3.5-5.0) g/dL Arterial Blood Glucose (75-99) mg/dL Crossmatch 05/14/22 05/14/22 05/15/22 Range/Units 22:02 22:56 00:09 WBC (3.8-10.6) k/uL RBC (4.30-5.90) m/uL Hgb (13.0-17.5) gm/dL Hct (39.0-53.0) % Neutrophils # (1.3-7.7) k/uL Neutrophils # (Manual) (1.3-7.7) k/uL Lymphocytes # (1.0-4.8) k/uL Monocytes # (Manual) (0-1.0) k/uL APTT (22.0-30.0) sec Fibrinogen (200-500) mg/dL ABG pH (7.35-7.45) ABG pCO2 (35-45) mmHg ABG pO2 (83-108) mmHg ABG HCO3 (21-25) mmol/L ABG Total CO2 (19-24) mmol/L ABG O2 Saturation (94-97) % ABG Hematocrit (34.0-46.0) % ABG Ionized Calcium (4.5-5.3) mg/dL ABG Glucose (75-99) mg/dL ABG Lactic Acid (0.5-1.6) mmol/L Hemoglobin (13.0-17.5) gm/dL Sodium (137-145) mmol/L Chloride (98-107) mmol/L Creatinine (0.66-1.25) mg/dL Glucose (74-99) mg/dL POC Glucose (mg/dL) 152 H 140 H 132 H (70-110) mg/dL Hemoglobin A1c (0.0-6.0) % Calcium (8.4-10.2) mg/dL Magnesium (1.6-2.3) mg/dL AST (17-59) U/L Alkaline Phosphatase (38-126) U/L Total Protein (6.3-8.2) g/dL Albumin (3.5-5.0) g/dL Arterial Blood Glucose (75-99) mg/dL Crossmatch 05/15/22 05/15/22 05/15/22 Range/Units 01:04 02:12 03:10 WBC (3.8-10.6) k/uL RBC (4.30-5.90) m/uL Hgb (13.0-17.5) gm/dL Hct (39.0-53.0) % Neutrophils # (1.3-7.7) k/uL Neutrophils # (Manual) (1.3-7.7) k/uL Lymphocytes # (1.0-4.8) k/uL Monocytes # (Manual) (0-1.0) k/uL APTT (22.0-30.0) sec Fibrinogen (200-500) mg/dL ABG pH (7.35-7.45) ABG pCO2 (35-45) mmHg ABG pO2 (83-108) mmHg ABG HCO3 (21-25) mmol/L ABG Total CO2 (19-24) mmol/L ABG O2 Saturation (94-97) % ABG Hematocrit (34.0-46.0) % ABG Ionized Calcium (4.5-5.3) mg/dL ABG Glucose (75-99) mg/dL ABG Lactic Acid (0.5-1.6) mmol/L Hemoglobin (13.0-17.5) gm/dL Sodium (137-145) mmol/L Chloride (98-107) mmol/L Creatinine (0.66-1.25) mg/dL Glucose (74-99) mg/dL POC Glucose (mg/dL) 140 H 126 H 126 H (70-110) mg/dL Hemoglobin A1c (0.0-6.0) % Calcium (8.4-10.2) mg/dL Magnesium (1.6-2.3) mg/dL AST (17-59) U/L Alkaline Phosphatase (38-126) U/L Total Protein (6.3-8.2) g/dL Albumin (3.5-5.0) g/dL Arterial Blood Glucose (75-99) mg/dL Crossmatch 05/15/22 05/15/22 05/15/22 Range/Units 04:15 04:15 04:18 WBC 15.9 H (3.8-10.6) k/uL RBC 2.88 L (4.30-5.90) m/uL Hgb 9.2 L (13.0-17.5) gm/dL Hct 27.0 L (39.0-53.0) % Neutrophils # (1.3-7.7) k/uL Neutrophils # (Manual) 12.00 H (1.3-7.7) k/uL Lymphocytes # (1.0-4.8) k/uL Monocytes # (Manual) 1.43 H (0-1.0) k/uL APTT (22.0-30.0) sec Fibrinogen (200-500) mg/dL ABG pH (7.35-7.45) ABG pCO2 (35-45) mmHg ABG pO2 (83-108) mmHg ABG HCO3 (21-25) mmol/L ABG Total CO2 (19-24) mmol/L ABG O2 Saturation (94-97) % ABG Hematocrit (34.0-46.0) % ABG Ionized Calcium (4.5-5.3) mg/dL ABG Glucose (75-99) mg/dL ABG Lactic Acid (0.5-1.6) mmol/L Hemoglobin (13.0-17.5) gm/dL Sodium 135 L (137-145) mmol/L Chloride (98-107) mmol/L Creatinine 0.52 L (0.66-1.25) mg/dL Glucose 124 H (74-99) mg/dL POC Glucose (mg/dL) 142 H (70-110) mg/dL Hemoglobin A1c (0.0-6.0) % Calcium 7.6 L (8.4-10.2) mg/dL Magnesium (1.6-2.3) mg/dL AST 64 H (17-59) U/L Alkaline Phosphatase 37 L (38-126) U/L Total Protein 5.0 L (6.3-8.2) g/dL Albumin 3.4 L (3.5-5.0) g/dL Arterial Blood Glucose (75-99) mg/dL Crossmatch 05/15/22 05/15/22 05/15/22 Range/Units 05:11 06:14 07:04 WBC (3.8-10.6) k/uL RBC (4.30-5.90) m/uL Hgb (13.0-17.5) gm/dL Hct (39.0-53.0) % Neutrophils # (1.3-7.7) k/uL Neutrophils # (Manual) (1.3-7.7) k/uL Lymphocytes # (1.0-4.8) k/uL Monocytes # (Manual) (0-1.0) k/uL APTT (22.0-30.0) sec Fibrinogen (200-500) mg/dL ABG pH (7.35-7.45) ABG pCO2 (35-45) mmHg ABG pO2 (83-108) mmHg ABG HCO3 (21-25) mmol/L ABG Total CO2 (19-24) mmol/L ABG O2 Saturation (94-97) % ABG Hematocrit (34.0-46.0) % ABG Ionized Calcium (4.5-5.3) mg/dL ABG Glucose (75-99) mg/dL ABG Lactic Acid (0.5-1.6) mmol/L Hemoglobin (13.0-17.5) gm/dL Sodium (137-145) mmol/L Chloride (98-107) mmol/L Creatinine (0.66-1.25) mg/dL Glucose (74-99) mg/dL POC Glucose (mg/dL) 140 H 147 H 187 H (70-110) mg/dL Hemoglobin A1c (0.0-6.0) % Calcium (8.4-10.2) mg/dL Magnesium (1.6-2.3) mg/dL AST (17-59) U/L Alkaline Phosphatase (38-126) U/L Total Protein (6.3-8.2) g/dL Albumin (3.5-5.0) g/dL Arterial Blood Glucose (75-99) mg/dL Crossmatch 05/15/22 05/15/22 Range/Units 08:31 09:25 WBC (3.8-10.6) k/uL RBC (4.30-5.90) m/uL Hgb (13.0-17.5) gm/dL Hct (39.0-53.0) % Neutrophils # (1.3-7.7) k/uL Neutrophils # (Manual) (1.3-7.7) k/uL Lymphocytes # (1.0-4.8) k/uL Monocytes # (Manual) (0-1.0) k/uL APTT (22.0-30.0) sec Fibrinogen (200-500) mg/dL ABG pH (7.35-7.45) ABG pCO2 (35-45) mmHg ABG pO2 (83-108) mmHg ABG HCO3 (21-25) mmol/L ABG Total CO2 (19-24) mmol/L ABG O2 Saturation (94-97) % ABG Hematocrit (34.0-46.0) % ABG Ionized Calcium (4.5-5.3) mg/dL ABG Glucose (75-99) mg/dL ABG Lactic Acid (0.5-1.6) mmol/L Hemoglobin (13.0-17.5) gm/dL Sodium (137-145) mmol/L Chloride (98-107) mmol/L Creatinine (0.66-1.25) mg/dL Glucose (74-99) mg/dL POC Glucose (mg/dL) 189 H 173 H (70-110) mg/dL Hemoglobin A1c (0.0-6.0) % Calcium (8.4-10.2) mg/dL Magnesium (1.6-2.3) mg/dL AST (17-59) U/L Alkaline Phosphatase (38-126) U/L Total Protein (6.3-8.2) g/dL Albumin (3.5-5.0) g/dL Arterial Blood Glucose (75-99) mg/dL Crossmatch Assessment and Plan Plan: Symptomatic multivessel coronary artery disease and the patient underwent four- vessel bypass surgery, quadrant currently postop day #1 Patient is hemodynamically stable. Adequate cardiac output and index. Patient is currently on no pressors. Post thoracotomy, extubated without any major difficulties, currently on room air oxygen. Chest tubes are still in place, output is being monitored Diabetes mellitus type 2 with a preoperative HbA1c of above 11, currently on insulin drip for blood sugar control, and the patient is currently on 5 units an hour of insulin drip Postsurgical anemia, anticipated outcome of surgery and the hemoglobin is currently at 9.2 Hypertension Hyperlipidemia History of smoking Recent history of non-ST segment elevation myocardial infarction Plan Continue using the incentive spirometer Monitor the output from the chest tube We will the [place]-Mya catheter Continue insulin drip for blood sugar control Continue aspirin Start the patient on metoprolol 25 mg by mouth 3 times a day Continue supportive care and will continue to follow.
[2022-05-15 17:09] LABS: Glucose,Whole Blood 124 mg/dL (70-110)
[2022-05-15] MEDS: ALBUMIN HUMAN 5% 250 ML in EMPTY BAG 1 BAG IVPB PRN (18:07)
[2022-05-15 18:14] LABS: Glucose,Whole Blood 116 mg/dL (70-110)
[2022-05-15 19:00] LABS: Glucose,Whole Blood 114 mg/dL (70-110)
[2022-05-15 20:15] LABS: Glucose,Whole Blood 207 mg/dL (70-110)
[2022-05-15] MEDS: SENNOSIDES-DOCUSATE SODIUM 1 EACH TAB PO SCH (20:32)
[2022-05-15 21:04] LABS: Glucose,Whole Blood 160 mg/dL (70-110)
[2022-05-15 22:05] LABS: Glucose,Whole Blood 120 mg/dL (70-110)
[2022-05-15] MEDS: METOPROLOL TARTRATE 25 MG TAB PO SCH (22:06)
--- NOTE | 2022-05-15 22:06 | CONS ---
CONSULTATION HISTORY OF PRESENT ILLNESS: A 46-year-old white male status post 4-way bypass CT. He was maintained on the ventilator yesterday. He is on Accu-Chek protocol, insulin drip, history of 4-way bypass, coronary artery disease, recent non-STEMI, diabetes, hypertension, and dyslipidemia. HOME MEDICINES: 1. Lipitor 80 daily. 2. Aspirin 81 daily. 3. Lantus 30 units daily. 4. Humalog 5 units a.c. t.i.d. 5. Imdur 30 mg daily. 6. Cozaar 25 daily. 7. Metoprolol 50 b.i.d. 8. Nitroglycerin sublingual p.r.n. 9. Actos 15 mg daily. FAMILY HISTORY: Father, myocardial infarction. PAST SURGICAL HISTORY: Splenectomy, heart catheterization. PHYSICAL EXAMINATION: GENERAL: He is resting comfortably on the vent at this time. CARDIOVASCULAR: S1, S2. LUNGS: Clear. GI: Soft. EXTREMITIES: No edema. ABDOMEN: Soft. No edema. LABORATORY DATA: Labs reviewed. White count is elevated. Hemoglobin is 12.1. White count is 29, BUN is 16, creatinine 0.55. Status post bypass surgery on the ventilator. We are going to wean him down. Appears to be stable per nursing. Labs reviewed. ICU nurse notes reviewed. Home medicines have been reviewed. Do A1c on him. PROGNOSIS: Guarded. MMODL / IJN: [id number] /
[2022-05-15 23:12] LABS: Glucose,Whole Blood 110 mg/dL (70-110)
[2022-05-16 00:10] LABS: Glucose,Whole Blood 132 mg/dL (70-110)
[2022-05-16 00:54] LABS: Glucose,Whole Blood 129 mg/dL (70-110)
[2022-05-16 02:00] LABS: Glucose,Whole Blood 139 mg/dL (70-110)
[2022-05-16] MEDS: HYDROcodone/APAP 5-325MG 1 EACH TAB PO PRN ×4 (02:02→21:48)
[2022-05-16 03:04] LABS: Glucose,Whole Blood 151 mg/dL (70-110)
[2022-05-16 04:15] LABS: Glucose,Whole Blood 137 mg/dL (70-110)
[2022-05-16 05:13] LABS: Glucose,Whole Blood 136 mg/dL (70-110)
[2022-05-16] MEDS: PANTOPRAZOLE 40 MG TABLET PO SCH (06:10)
[2022-05-16 06:16] LABS: Glucose,Whole Blood 134 mg/dL (70-110)
[2022-05-16 06:56] LABS: Glucose,Whole Blood 152 mg/dL (70-110)
--- NOTE | 2022-05-16 07:15 | XR ---
EXAMINATION TYPE: XR chest 1V portable DATE OF EXAM: 05/16/2022 HISTORY: Post Op CABG COMPARISON: 05/15/2022 TECHNIQUE: Single view of the chest is submitted. FINDINGS: Covina-Mya catheter has been removed. mediastinal drains and chest tubes are appropriately placed. Post operative changes of CABG. No sizeable pneumothorax. Scattered Pleural-parenchymal opacities may reflect atelectasis. The heart mildly enlarged. IMPRESSION: 1. Post operative changes of CABG.
[2022-05-16] MEDS: ASPIRIN 325 MG TAB PO SCH (08:07)
[2022-05-16] MEDS: CLOPIDOGREL 75 MG TAB PO SCH (08:07)
[2022-05-16] MEDS: ATORVASTATIN 80 MG TAB PO SCH (08:07)
[2022-05-16] MEDS: METOPROLOL TARTRATE 25 MG TAB PO SCH ×3 (08:07→21:10)
[2022-05-16] MEDS: HEPARIN SODIUM,PORCINE/PF 5,000 UNIT/0.5 ML SYRINGE SQ SCH ×2 (08:08→17:04)
[2022-05-16 08:18] LABS: Glucose,Whole Blood 169 mg/dL (70-110)
[2022-05-16] MEDS: IPRATROPIUM-ALBUTEROL 3 ML NEB INHALATION SCH ×4 (08:21→22:08)
[2022-05-16 09:15] LABS: ALT 27 U/L (4-49); AST 55 U/L (17-59); African American GFR (CKD) >90 (>60 ml/min/1.73 sqM); Alkaline Phosphatase 37 U/L (38-126); Anion Gap 4 mmol/L; Blood Urea Nitrogen 17 mg/dL (9-20); Calcium 7.6 mg/dL (8.4-10.2); Carbon Dioxide 27 mmol/L (22-30); Chloride 98 mmol/L (98-107); Glucose 189 mg/dL (74-99); Magnesium 1.8 mg/dL (1.6-2.3); Non-African American GFR(CKD) >90 (>60 ml/min/1.73 sqM); Sodium 129 mmol/L (137-145); Total Bilirubin 1.3 mg/dL (0.2-1.3); Total Protein 4.8 g/dL (6.3-8.2)
[2022-05-16 09:23] LABS: Ionized Calcium 4.7 mg/dL (4.5-5.3)
[2022-05-16 09:28] LABS: HCT 23.6 % (39.0-53.0); MCH 32.3 pg (25.0-35.0); MCHC 33.9 g/dL (31.0-37.0); MCV 95.2 fL (80.0-100.0); Mean Platelet Volume 8.1; Platelet Count 153 k/uL (150-450); RBC 2.48 m/uL (4.30-5.90); RDW 13.1 % (11.5-15.5)
[2022-05-16 09:31] LABS: Glucose,Whole Blood 212 mg/dL (70-110)
--- NOTE | 2022-05-16 10:24 | P.PN ---
Subjective Progress Note Date: 05/16/22 Principal diagnosis: Triple-vessel coronary artery disease with recent non-STEMI. Previous medical history of hypertension, insulin-dependent diabetes, previous tobacco dependence , splenectomy, Covid infection in summer 2021 POD #2 coronary artery bypass grafting 4, left internal thoracic artery sequenced to the first diagonal artery then the left anterior descending artery, left radial artery on the aorta to the ramus intermedius, reverse saphenous vein graft from the aorta to the proximal posterior descending coronary artery, left atrial appendage ligation using a 35 mm AtriClip, endoscopic harvesting of the left radial and right greater saphenous vein, graft flow measurements using the Lumensestim system, intraoperative transesophageal echocardiogram performed by edgard castillo Postoperative acute blood loss anemia, expected given hemodilution Leukocytosis, expected, reactive The patient was seen and examined this morning sitting up in a recliner in the intensive care unit in no acute distress. Currently in sinus rhythm with heart rate in the 80s, hemodynamically stable. States pain is most controlled with current medication regimen, denies shortness of breath. Currently on 2 L nasal cannula with oxygen saturation in the high 90s, only able to achieve 500 mL on his incentive spirometry. He did ambulate short distances in the hallway yesterday and again this morning. Right internal jugular Cordis, right radial arterial line, mediastinal/right/left pleural chest tubes all remaining present. No other new concerns. Objective - Vital Signs Vital signs: Vital Signs Temp 99.8 F H 05/16/22 08:00 Pulse 89 05/16/22 10:00 Resp 15 05/16/22 10:00 BP 109/58 05/16/22 10:00 Pulse Ox 94 L 05/16/22 10:00 FiO2 50 05/14/22 17:56 Intake & Output 05/15/22 05/16/22 05/16/22 18:59 06:59 18:59 Intake Total 1674.202 560.620 44.988 Output Total 675 740 20 Balance 999.202 -179.380 24.988 Weight 74.7 kg 76.4 kg Intake: IV 660.0 399 33 Diltiazem 125 mg In 10.0 Sodium Chloride 0.9% 100 ml @ 5 MG/HR 5 mls/hr IV .Q24H [facility] Rx#:[id number] Lactated Ringers 1,000 ml 440 360 30 @ 20 mls/hr IV .Q24H [facility] Rx#:[id number] Magnesium Sulfate-D5w Pmx 100 1 gm In Dextrose/Water 1 100ml.bag @ 100 mls/hr IVPB Q1H [facility] Rx#: [id number] ceFAZolin 2 gm In Sodium 50 Chloride 0.9% 50 ml @ 100 mls/hr IVPB Q8HR [facility] Rx# :[id number] pressure bag 60 39 3 Intake, IV Titration 54.202 41.620 11.988 Amount Insulin Regular 100 unit 54.202 41.620 11.988 In Sodium Chloride 0.9% 100 ml @ Per Protocol IV .Q0M [facility] Rx#:[id number] Oral 960 120 Output: Drainage 230 150 10 Medial 80 70 0 left and right pleural 150 80 10 Urine 445 590 10 Other: Voiding Method Indwelling Catheter Indwelling Catheter Indwelling Catheter ABP, PAP, CO, CI - Last Documented Arterial Blood Pressure 138/128 Pulmonary Artery Pressure 21/6 Cardiac Output 7.7 Cardiac Index 4.3 - Exam CONSTITUTIONAL: Appears comfortable, cooperative, no acute distress RESPIRATORY: Lungs sounds diminished bilaterally. Respirations even, non labored. Currently on 2 L nasal cannula with oxygen saturation 94%. Able to achieve 500 mL on incentive spirometry. Strong productive cough. CARDIOVASCULAR: S1, S2 present. Regular rate and rhythm, sinus rhythm on telemetry. Sternum stable. Palpable peripheral pulses bilaterally. No edema present. No calf pain or tenderness noted. Heart hugger in place with patient demonstrating appropriate use. Antiembolism stockings, SCDs present. GASTROINTESTINAL: Abdomen soft, nontender, nondistended. Active bowel sounds present 4 quadrants. Tolerating minimal diet. Denies flatus GENITOURINARY: Abrenathy present draining clear, yellow urine. Output overnight 35-40 mL per hour, 1035 mL the last 24 hours INTEGUMENTARY: Skin is warm and dry with evidence of good perfusion. Anterior chest incision well approximated and covered with dry intact dressing. Left radial artery harvest site as well as right lower extremity EVH site well approximated without redness or drainage. NEUROLOGIC: Cranial nerves II through XII intact MUSKULOSKELETAL: Able to move all extremities, strength equal bilaterally PSYCHIATRIC: Alert and oriented to person place and time, appropriate affect, intact judgment and insight INVASIVE LINES AND TUBES: Mediastinal/left/right pleural chest tubes present a nd connected to wall suction, no air leaks present. Mediastinal tube with 60 mL serosanguineous drainage overnight, 150 mL in the last 24 hours. Left/right pleural chest tubes with 50 mL serosanguineous drainage overnight, 250 mL the last 24 hours. Ventricular epicardial pacemaker wires present, grounded. Right internal jugular Cordis, right radial arterial line present. Last CVP 7. - Allied health notes Allied health notes reviewed: nursing - Labs CBC & Chem 7: 05/16/22 09:00 05/16/22 09:00 Labs: Abnormal Lab Results - Last 24 Hours (Table) 05/15/22 05/15/22 05/15/22 Range/Units 04:15 10:20 11:08 WBC (3.8-10.6) k/uL RBC (4.30-5.90) m/uL Hgb (13.0-17.5) gm/dL Hct (39.0-53.0) % Sodium (137-145) mmol/L Creatinine (0.66-1.25) mg/dL Glucose (74-99) mg/dL POC Glucose (mg/dL) 176 H 154 H (70-110) mg/dL Calcium (8.4-10.2) mg/dL Alkaline Phosphatase (38-126) U/L Total Protein (6.3-8.2) g/dL Albumin (3.5-5.0) g/dL Procalcitonin 0.39 H (0.02-0.09) ng/mL 05/15/22 05/15/22 05/15/22 Range/Units 11:58 13:03 14:14 WBC (3.8-10.6) k/uL RBC (4.30-5.90) m/uL Hgb (13.0-17.5) gm/dL Hct (39.0-53.0) % Sodium (137-145) mmol/L Creatinine (0.66-1.25) mg/dL Glucose (74-99) mg/dL POC Glucose (mg/dL) 143 H 146 H 151 H (70-110) mg/dL Calcium (8.4-10.2) mg/dL Alkaline Phosphatase (38-126) U/L Total Protein (6.3-8.2) g/dL Albumin (3.5-5.0) g/dL Procalcitonin (0.02-0.09) ng/mL 05/15/22 05/15/22 05/15/22 Range/Units 15:17 17:07 18:13 WBC (3.8-10.6) k/uL RBC (4.30-5.90) m/uL Hgb (13.0-17.5) gm/dL Hct (39.0-53.0) % Sodium (137-145) mmol/L Creatinine (0.66-1.25) mg/dL Glucose (74-99) mg/dL POC Glucose (mg/dL) 142 H 124 H 116 H (70-110) mg/dL Calcium (8.4-10.2) mg/dL Alkaline Phosphatase (38-126) U/L Total Protein (6.3-8.2) g/dL Albumin (3.5-5.0) g/dL Procalcitonin (0.02-0.09) ng/mL 05/15/22 05/15/22 05/15/22 Range/Units 18:58 20:13 21:03 WBC (3.8-10.6) k/uL RBC (4.30-5.90) m/uL Hgb (13.0-17.5) gm/dL Hct (39.0-53.0) % Sodium (137-145) mmol/L Creatinine (0.66-1.25) mg/dL Glucose (74-99) mg/dL POC Glucose (mg/dL) 114 H 207 H 160 H (70-110) mg/dL Calcium (8.4-10.2) mg/dL Alkaline Phosphatase (38-126) U/L Total Protein (6.3-8.2) g/dL Albumin (3.5-5.0) g/dL Procalcitonin (0.02-0.09) ng/mL 05/15/22 05/16/22 05/16/22 Range/Units 22:04 00:08 00:53 WBC (3.8-10.6) k/uL RBC (4.30-5.90) m/uL Hgb (13.0-17.5) gm/dL Hct (39.0-53.0) % Sodium (137-145) mmol/L Creatinine (0.66-1.25) mg/dL Glucose (74-99) mg/dL POC Glucose (mg/dL) 120 H 132 H 129 H (70-110) mg/dL Calcium (8.4-10.2) mg/dL Alkaline Phosphatase (38-126) U/L Total Protein (6.3-8.2) g/dL Albumin (3.5-5.0) g/dL Procalcitonin (0.02-0.09) ng/mL 05/16/22 05/16/22 05/16/22 Range/Units 01:59 03:03 04:03 WBC (3.8-10.6) k/uL RBC (4.30-5.90) m/uL Hgb (13.0-17.5) gm/dL Hct (39.0-53.0) % Sodium (137-145) mmol/L Creatinine (0.66-1.25) mg/dL Glucose (74-99) mg/dL POC Glucose (mg/dL) 139 H 151 H 137 H (70-110) mg/dL Calcium (8.4-10.2) mg/dL Alkaline Phosphatase (38-126) U/L Total Protein (6.3-8.2) g/dL Albumin (3.5-5.0) g/dL Procalcitonin (0.02-0.09) ng/mL 05/16/22 05/16/22 05/16/22 Range/Units 05:02 06:04 06:55 WBC (3.8-10.6) k/uL RBC (4.30-5.90) m/uL Hgb (13.0-17.5) gm/dL Hct (39.0-53.0) % Sodium (137-145) mmol/L Creatinine (0.66-1.25) mg/dL Glucose (74-99) mg/dL POC Glucose (mg/dL) 136 H 134 H 152 H (70-110) mg/dL Calcium (8.4-10.2) mg/dL Alkaline Phosphatase (38-126) U/L Total Protein (6.3-8.2) g/dL Albumin (3.5-5.0) g/dL Procalcitonin (0.02-0.09) ng/mL 1105/16/22 05/16/22 Range/Units 08:15 09:00 09:00 WBC 20.0 H (3.8-10.6) k/uL RBC 2.48 L (4.30-5.90) m/uL Hgb 8.0 L (13.0-17.5) gm/dL Hct 23.6 L (39.0-53.0) % Sodium 129 L (137-145) mmol/L Creatinine 0.63 L (0.66-1.25) mg/dL Glucose 189 H (74-99) mg/dL POC Glucose (mg/dL) 169 H (70-110) mg/dL Calcium 7.6 L (8.4-10.2) mg/dL Alkaline Phosphatase 37 L (38-126) U/L Total Protein 4.8 L (6.3-8.2) g/dL Albumin 3.0 L (3.5-5.0) g/dL Procalcitonin (0.02-0.09) ng/mL 05/16/22 Range/Units 09:29 WBC (3.8-10.6) k/uL RBC (4.30-5.90) m/uL Hgb (13.0-17.5) gm/dL Hct (39.0-53.0) % Sodium (137-145) mmol/L Creatinine (0.66-1.25) mg/dL Glucose (74-99) mg/dL POC Glucose (mg/dL) 212 H (70-110) mg/dL Calcium (8.4-10.2) mg/dL Alkaline Phosphatase (38-126) U/L Total Protein (6.3-8.2) g/dL Albumin (3.5-5.0) g/dL Procalcitonin (0.02-0.09) ng/mL Microbiology - Last 24 Hours (Table) 05/15/22 20:05 Sputum Culture - Preliminary Sputum - Imaging and Cardiology Chest x-ray: report reviewed, image reviewed Assessment and Plan Assessment: 1. Triple-vessel coronary artery disease with recent non-STEMI, status post four-vessel CABG 2. History of hypertension 3. Poorly controlled insulin-dependent diabetes, preoperative hemoglobin A1c 9.6% 4. Previous tobacco dependence with recent cessation, preoperative FEV1 85% predicted 5. Splenectomy 6. Covid infection in summer 2022, remains unvaccinated 7. Postoperative acute blood loss anemia, expected 8. Leukocytosis, expected Plan: 1. Continue aspirin, statin, Plavix, beta messi therapy. Will increase beta messi therapy as tolerated 2. Continue calcium channel messi for radial artery spasm prophylaxis 3. Wean O2 as tolerated. Encourage incentive spirometry use 10 times every h our while awake. Bronchodilators per pulmonology 4. Increase activity, ambulate as tolerated. PT/OT/cardiac rehab consulted 5. Will monitor daily labs and x-rays. Electrolyte replacement per protocol 6. GI/DVT prophylaxis 7. Pain control with current medication regimen 8. Insulin management per internal medicine. Patient needs tight blood sugar control to prevent infection and promote healing 9. Discontinue Cordis, arterial line 10. Will discontinue mediastinal chest tube, continue pleural chest tube for another 24 hours 11. Discontinue Abernathy catheter. May bladder scan and straight cath for greater than 300 mL residual 12. Strict accurate intake and output. Daily weights 13. Continue to encourage smoking cessation 14. More recommendations to follow as patient progresses
[2022-05-16] MEDS ORDERED: Magnesium Replacement Protocol 1 EACH MISC MISCELLANE PRN (10:26)
[2022-05-16] MEDS: MAGNESIUM SULFATE-D5W PMX 1 GM in DEXTROSE/WATER 1 100ML.BAG IVPB SCH ×2 (10:37→11:53)
[2022-05-16 10:40] LABS: Glucose,Whole Blood 175 mg/dL (70-110)
--- NOTE | 2022-05-16 11:41 | P.PN ---
Subjective Patient underwent coronary artery bypass grafting He is sitting comfortably in the chair Denies any chest discomfort Does not appear to be short of breath On examination his breath sounds are reduced bilaterally Heart sounds S1 and S2 are soft He has sinus tachycardia but no atrial fibrillation Blood pressure 109/58 mmHg pulse rate in the 80s Breath sounds are reduced bilaterally Impression Triple-vessel coronary artery disease Recent acute myocardial infarction Status post coronary artery bypass grafting Type 2 diabetes Plan Continue current care I would recommend increasing the dose of metoprolol as long as blood pressure control related Continue statins and antiplatelet therapy Objective - Vital Signs Vital signs: Vital Signs Temp 99.8 F H 05/16/22 08:00 Pulse 99 05/16/22 11:35 Resp 23 05/16/22 11:00 BP 98/57 05/16/22 11:00 Pulse Ox 94 L 05/16/22 11:00 FiO2 50 05/14/22 17:56 Intake & Output 05/15/22 05/16/22 05/16/22 18:59 06:59 18:59 Intake Total 1674.202 560.620 110.988 Output Total 675 740 90 Balance 999.202 -179.380 20.988 Weight 74.7 kg 76.4 kg Intake: IV 660.0 399 99 Diltiazem 125 mg In 10.0 Sodium Chloride 0.9% 100 ml @ 5 MG/HR 5 mls/hr IV .Q24H [facility] Rx#:[id number] Lactated Ringers 1,000 ml 440 360 90 @ 20 mls/hr IV .Q24H [facility] Rx#:[id number] Magnesium Sulfate-D5w Pmx 100 1 gm In Dextrose/Water 1 100ml.bag @ 100 mls/hr IVPB Q1H [facility] Rx#: [id number] ceFAZolin 2 gm In Sodium 50 Chloride 0.9% 50 ml @ 100 mls/hr IVPB Q8HR [facility] Rx# :[id number] pressure bag 60 39 9 Intake, IV Titration 54.202 41.620 11.988 Amount Insulin Regular 100 unit 54.202 41.620 11.988 In Sodium Chloride 0.9% 100 ml @ Per Protocol IV .Q0M [facility] Rx#:[id number] Oral 960 120 Output: Drainage 230 150 60 Medial 80 70 10 left and right pleural 150 80 50 Urine 445 590 30 Other: Voiding Method Indwelling Catheter Indwelling Catheter Indwelling Catheter ABP, PAP, CO, CI - Last Documented Arterial Blood Pressure 138/128 Pulmonary Artery Pressure 21/6 Cardiac Output 7.7 Cardiac Index 4.3 - Labs CBC & Chem 7: 05/16/22 09:00 05/16/22 09:00 Labs: Abnormal Lab Results - Last 24 Hours (Table) 05/15/22 05/15/22 05/15/22 Range/Units 04:15 11:58 13:03 WBC (3.8-10.6) k/uL RBC (4.30-5.90) m/uL Hgb (13.0-17.5) gm/dL Hct (39.0-53.0) % Sodium (137-145) mmol/L Creatinine (0.66-1.25) mg/dL Glucose (74-99) mg/dL POC Glucose (mg/dL) 143 H 146 H (70-110) mg/dL Calcium (8.4-10.2) mg/dL Alkaline Phosphatase (38-126) U/L Total Protein (6.3-8.2) g/dL Albumin (3.5-5.0) g/dL Procalcitonin 0.39 H (0.02-0.09) ng/mL 05/15/22 05/15/22 05/15/22 Range/Units 14:14 15:17 17:07 WBC (3.8-10.6) k/uL RBC (4.30-5.90) m/uL Hgb (13.0-17.5) gm/dL Hct (39.0-53.0) % Sodium (137-145) mmol/L Creatinine (0.66-1.25) mg/dL Glucose (74-99) mg/dL POC Glucose (mg/dL) 151 H 142 H 124 H (70-110) mg/dL Calcium (8.4-10.2) mg/dL Alkaline Phosphatase (38-126) U/L Total Protein (6.3-8.2) g/dL Albumin (3.5-5.0) g/dL Procalcitonin (0.02-0.09) ng/mL 05/15/22 05/15/22 05/15/22 Range/Units 18:13 18:58 20:13 WBC (3.8-10.6) k/uL RBC (4.30-5.90) m/uL Hgb (13.0-17.5) gm/dL Hct (39.0-53.0) % Sodium (137-145) mmol/L Creatinine (0.66-1.25) mg/dL Glucose (74-99) mg/dL POC Glucose (mg/dL) 116 H 114 H 207 H (70-110) mg/dL Calcium (8.4-10.2) mg/dL Alkaline Phosphatase (38-126) U/L Total Protein (6.3-8.2) g/dL Albumin (3.5-5.0) g/dL Procalcitonin (0.02-0.09) ng/mL 05/15/22 05/15/22 05/16/22 Range/Units 21:03 22:04 00:08 WBC (3.8-10.6) k/uL RBC (4.30-5.90) m/uL Hgb (13.0-17.5) gm/dL Hct (39.0-53.0) % Sodium (137-145) mmol/L Creatinine (0.66-1.25) mg/dL Glucose (74-99) mg/dL POC Glucose (mg/dL) 160 H 120 H 132 H (70-110) mg/dL Calcium (8.4-10.2) mg/dL Alkaline Phosphatase (38-126) U/L Total Protein (6.3-8.2) g/dL Albumin (3.5-5.0) g/dL Procalcitonin (0.02-0.09) ng/mL 05/16/22 05/16/22 05/16/22 Range/Units 00:53 01:59 03:03 WBC (3.8-10.6) k/uL RBC (4.30-5.90) m/uL Hgb (13.0-17.5) gm/dL Hct (39.0-53.0) % Sodium (137-145) mmol/L Creatinine (0.66-1.25) mg/dL Glucose (74-99) mg/dL POC Glucose (mg/dL) 129 H 139 H 151 H (70-110) mg/dL Calcium (8.4-10.2) mg/dL Alkaline Phosphatase (38-126) U/L Total Protein (6.3-8.2) g/dL Albumin (3.5-5.0) g/dL Procalcitonin (0.02-0.09) ng/mL 05/16/22 05/16/22 05/16/22 Range/Units 04:03 05:02 06:04 WBC (3.8-10.6) k/uL RBC (4.30-5.90) m/uL Hgb (13.0-17.5) gm/dL Hct (39.0-53.0) % Sodium (137-145) mmol/L Creatinine (0.66-1.25) mg/dL Glucose (74-99) mg/dL POC Glucose (mg/dL) 137 H 136 H 134 H (70-110) mg/dL Calcium (8.4-10.2) mg/dL Alkaline Phosphatase (38-126) U/L Total Protein (6.3-8.2) g/dL Albumin (3.5-5.0) g/dL Procalcitonin (0.02-0.09) ng/mL 05/16/22 05/16/22 05/16/22 Range/Units 06:55 08:15 09:00 WBC 20.0 H (3.8-10.6) k/uL RBC 2.48 L (4.30-5.90) m/uL Hgb 8.0 L (13.0-17.5) gm/dL Hct 23.6 L (39.0-53.0) % Sodium (137-145) mmol/L Creatinine (0.66-1.25) mg/dL Glucose (74-99) mg/dL POC Glucose (mg/dL) 152 H 169 H (70-110) mg/dL Calcium (8.4-10.2) mg/dL Alkaline Phosphatase (38-126) U/L Total Protein (6.3-8.2) g/dL Albumin (3.5-5.0) g/dL Procalcitonin (0.02-0.09) ng/mL 05/16/22 05/16/22 05/16/22 Range/Units 09:00 09:29 10:39 WBC (3.8-10.6) k/uL RBC (4.30-5.90) m/uL Hgb (13.0-17.5) gm/dL Hct (39.0-53.0) % Sodium 129 L (137-145) mmol/L Creatinine 0.63 L (0.66-1.25) mg/dL Glucose 189 H (74-99) mg/dL POC Glucose (mg/dL) 212 H 175 H (70-110) mg/dL Calcium 7.6 L (8.4-10.2) mg/dL Alkaline Phosphatase 37 L (38-126) U/L Total Protein 4.8 L (6.3-8.2) g/dL Albumin 3.0 L (3.5-5.0) g/dL Procalcitonin (0.02-0.09) ng/mL Microbiology - Last 24 Hours (Table) 05/15/22 20:05 Sputum Culture - Preliminary Sputum
[2022-05-16] MEDS: KETOROLAC 15 MG/ML 1 ML VIAL IVP SCH ×2 (11:53→18:33)
[2022-05-16] MEDS: amLODIPine 2.5 MG TAB PO SCH (11:53)
[2022-05-16] MEDS: INSULIN ASPART (NovoLOG) 100 UNIT/ML VIAL SQ SCH ×5 (11:54→20:28)
[2022-05-16 11:58] LABS: Glucose,Whole Blood 195 mg/dL (70-110)
[2022-05-16] MEDS: LACTATED RINGERS 1,000 ML IV SCH (12:00)
[2022-05-16 13:21] LABS: Metamyelocytes % 1 %; Neutrophils % (M) 79 %; Nucleated Red Blood Cells 0 /100 WBC (0-0); Total Cells Counted 200
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
--- NOTE | 2022-05-16 16:43 | P.PN ---
Subjective Progress Note Date: 05/16/22 This is a 46-year-old male patient with known history of triple-vessel coronary artery disease, previous non-ST segment elevation myocardial infarction oh underwent four-vessel bypass surgery. The patient arrived to the intensive care unit following the surgery. Immediately after the arrival, the patient was found to have some hypertension and shaking. He was not sick is a mechanical ventilator. Based on that, he started on propofol which is currently running at 50 and Precedex is running at 0.0 0.2 mcg/kg/h. He is most interested a mechanical ventilator. At this point in time he is exchanging his volumes and is on assist control at the rate of 24 with a tidal volume of 500 and FiO2 of 60% with PEEP of 10. The PEEP was increased as the patient was having excessive amount of output from the chest tubes that were inserted in the operating room. The patient currently has 1 mediastinal and one by 201 left pleural. Most of the output is from the pleural chest tube. Mediastinal output is also in order of 600 mL, urine output is in the order out 600 mL. Initial blood gas was poor and the necessity ventilator changes were done and we are awaiting the follow-up blood gases. His current cardiac rhythm is sinus. His pulmonary artery pressures of 25/12. Cardiac output is at 8.5 with an index of 4.7. Urine output is adequate in the order of 30-40 mL an hour. He is on IV fluids cu rrently running at 50 mL an hour of normal saline and he had 500 mL of albumin 5% postop. He is blood work at this point in time. The white cell count is at 29 and a hemoglobin of 12.1 and platelets of 221. Chest x-ray showing atelectatic changes in the right midlung and the left lower lobe area. He was admitted location. The patient is wondering if catheter which is an excellent location. 42 was also in good location. No airspace disease. No pneumothorax. Chest is at location. Insulin is currently at 2 units an hour On today's evaluation of 05/15/2022, the patient is calm and comfortable sitting up on a chair on room air oxygen. Noted the patient was extubated yesterday without any major difficulties. On today's evaluation, the patient is awake and alert and following commands and answering questions. He is using the incentive spirometer and his falling approximately 1000. He has excellent urine output and the order of 75 mL an hour. His cardiac output is at 7.7 with an index of 4.3. Pulmonary artery pressures of 27/6. The patient's cardiac rhythm is some mild sinus tachycardia. Otherwise, he is on insulin 5 units an hour for tight blood sugar control. He had a chest tubes in place and the B cell chest tube has drained approximately 750 and the right and left pleural chest tubes are connected and they are drained around 1000 since the patient arrived from the operating room. On today's blood work, the white cell count is 15.9 with a hemoglobin of 8.2 and a platelet count of 174, sodium is at 135, bicarbonate 26, potassium level III.8, BUN is 16 with a creatinine of 0.5. The chest x-ray from today shows postsurgical changes, atelectatic changes lung bases and the chest tubes are all in good location. No evidence of any pneumothorax. 05/16/2022, the patient is being seen for a follow-up. The patient is currently on 2 L of oxygen by nasal cannula. Chest is still in place, the mediastinal chest tube has put out approximately 7 to his over the past 12 hours and the pleural chest exit without approximately 80 mL over the past 12 hours. The patient is a hemoglobin of 8.0. BUN is at 70 with a creatinine of 0.6. Hemodynamically stable. Cardiac rhythm is sinus. Pain is under adequate control. Using incentive spirometer. Chest x-ray showing some atelectatic change in lung bases along with some mild pulmonary vascular congestion. The blood work from today shows a white cell count of 20 with a hemoglobin of 8 and a platelet count of 153. BUN is at 70 with a creatinine of 0.6. Objective - Vital Signs Vital signs: Vital Signs Temp 99.1 F 05/16/22 15:00 Pulse 110 H 05/16/22 16:12 Resp 24 05/16/22 16:00 BP 90/56 05/16/22 16:00 Pulse Ox 98 05/16/22 16:00 FiO2 50 05/14/22 17:56 Intake & Output 05/15/22 05/16/22 05/16/22 18:59 06:59 18:59 Intake Total 1674.202 560.620 459.988 Output Total 675 740 270 Balance 999.202 -179.380 189.988 Weight 74.7 kg 76.4 kg Intake: IV 660.0 399 198 Diltiazem 125 mg In 10.0 Sodium Chloride 0.9% 100 ml @ 5 MG/HR 5 mls/hr IV .Q24H [facility] Rx#:[id number] Lactated Ringers 1,000 ml 440 360 180 @ 20 mls/hr IV .Q24H [facility] Rx#:[id number] Magnesium Sulfate-D5w Pmx 100 1 gm In Dextrose/Water 1 100ml.bag @ 100 mls/hr IVPB Q1H [facility] Rx#: [id number] ceFAZolin 2 gm In Sodium 50 Chloride 0.9% 50 ml @ 100 mls/hr IVPB Q8HR [facility] Rx# :[id number] pressure bag 60 39 18 Intake, IV Titration 54.202 41.620 11.988 Amount Insulin Regular 100 unit 54.202 41.620 11.988 In Sodium Chloride 0.9% 100 ml @ Per Protocol IV .Q0M [facility] Rx#:[id number] Oral 960 120 250 Output: Drainage 230 150 60 Medial 80 70 10 left and right pleural 150 80 50 Urine 445 590 210 Other: Voiding Method Indwelling Catheter Indwelling Catheter Indwelling Catheter ABP, PAP, CO, CI - Last Documented Arterial Blood Pressure 138/128 Pulmonary Artery Pressure 21/6 Cardiac Output 7.7 Cardiac Index 4.3 - Exam CONSTITUTIONAL: Appears comfortable, cooperative, no acute distress RESPIRATORY: Lungs sounds diminished bilaterally. Respirations even, nonlabored. Currently on 2 L nasal cannula with oxygen saturation 94%. Able to achieve 500 mL on incentive spirometry. Strong productive cough. CARDIOVASCULAR: S1, S2 present. Regular rate and rhythm, sinus rhythm on telemetry. Sternum stable. Palpable peripheral pulses bilaterally. No edema present. No calf pain or tenderness noted. Heart hugger in place with patient demonstrating appropriate use. Antiembolism stockings, SCDs present. GASTROINTESTINAL: Abdomen soft, nontender, nondistended. Active bowel sounds present 4 quadrants. Tolerating minimal diet. Denies flatus GENITOURINARY: Abernathy present draining clear, yellow urine. Output overnight 35-40 mL per hour, 1035 mL the last 24 hours INTEGUMENTARY: Skin is warm and dry with evidence of good perfusion. Anterior chest incision well approximated and covered with dry intact dressing. Left radial artery harvest site as well as right lower extremity EVH site well approximated without redness or drainage. NEUROLOGIC: Cranial nerves II through XII intact MUSKULOSKELETAL: Able to move all extremities, strength equal bilaterally PSYCHIATRIC: Alert and oriented to person place and time, appropriate affect, intact judgment and insight INVASIVE LINES AND TUBES: Mediastinal/left/right pleural chest tubes present and connected to wall suction, no air leaks present. Mediastinal tube with 60 mL serosanguineous drainage overnight, 150 mL in the last 24 hours. Left/right pleural chest tubes with 50 mL serosanguineous drainage overnight, 250 mL the last 24 hours. Ventricular epicardial pacemaker wires present, grounded. Right internal jugular Cordis, right radial arterial line present. Last CVP 7. - Labs CBC & Chem 7: 05/16/22 09:00 05/16/22 09:00 Labs: Abnormal Lab Results - Last 24 Hours (Table) 05/15/22 05/15/22 05/15/22 Range/Units 17:07 18:13 18:58 WBC (3.8-10.6) k/uL RBC (4.30-5.90) m/uL Hgb (13.0-17.5) gm/dL Hct (39.0-53.0) % Neutrophils # (Manual) (1.3-7.7) k/uL Monocytes # (Manual) (0-1.0) k/uL Metamyelocytes # (Man) (0) k/uL Sodium (137-145) mmol/L Creatinine (0.66-1.25) mg/dL Glucose (74-99) mg/dL POC Glucose (mg/dL) 124 H 116 H 114 H (70-110) mg/dL Calcium (8.4-10.2) mg/dL Alkaline Phosphatase (38-126) U/L Total Protein (6.3-8.2) g/dL Albumin (3.5-5.0) g/dL 05/15/22 05/15/22 05/15/22 Range/Units 20:13 21:03 22:04 WBC (3.8-10.6) k/uL RBC (4.30-5.90) m/uL Hgb (13.0-17.5) gm/dL Hct (39.0-53.0) % Neutrophils # (Manual) (1.3-7.7) k/uL Monocytes # (Manual) (0-1.0) k/uL Metamyelocytes # (Man) (0) k/uL Sodium (137-145) mmol/L Creatinine (0.66-1.25) mg/dL Glucose (74-99) mg/dL POC Glucose (mg/dL) 207 H 160 H 120 H (70-110) mg/dL Calcium (8.4-10.2) mg/dL Alkaline Phosphatase (38-126) U/L Total Protein (6.3-8.2) g/dL Albumin (3.5-5.0) g/dL 05/16/22 05/16/22 05/16/22 Range/Units 00:08 00:53 01:59 WBC (3.8-10.6) k/uL RBC (4.30-5.90) m/uL Hgb (13.0-17.5) gm/dL Hct (39.0-53.0) % Neutrophils # (Manual) (1.3-7.7) k/uL Monocytes # (Manual) (0-1.0) k/uL Metamyelocytes # (Man) (0) k/uL Sodium (137-145) mmol/L Creatinine (0.66-1.25) mg/dL Glucose (74-99) mg/dL POC Glucose (mg/dL) 132 H 129 H 139 H (70-110) mg/dL Calcium (8.4-10.2) mg/dL Alkaline Phosphatase (38-126) U/L Total Protein (6.3-8.2) g/dL Albumin (3.5-5.0) g/dL 05/16/22 05/16/22 05/16/22 Range/Units 03:03 04:03 05:02 WBC (3.8-10.6) k/uL RBC (4.30-5.90) m/uL Hgb (13.0-17.5) gm/dL Hct (39.0-53.0) % Neutrophils # (Manual) (1.3-7.7) k/uL Monocytes # (Manual) (0-1.0) k/uL Metamyelocytes # (Man) (0) k/uL Sodium (137-145) mmol/L Creatinine (0.66-1.25) mg/dL Glucose (74-99) mg/dL POC Glucose (mg/dL) 151 H 137 H 136 H (70-110) mg/dL Calcium (8.4-10.2) mg/dL Alkaline Phosphatase (38-126) U/L Total Protein (6.3-8.2) g/dL Albumin (3.5-5.0) g/dL 05/16/22 05/16/22 05/16/22 Range/Units 06:04 06:55 08:15 WBC (3.8-10.6) k/uL RBC (4.30-5.90) m/uL Hgb (13.0-17.5) gm/dL Hct (39.0-53.0) % Neutrophils # (Manual) (1.3-7.7) k/uL Monocytes # (Manual) (0-1.0) k/uL Metamyelocytes # (Man) (0) k/uL Sodium (137-145) mmol/L Creatinine (0.66-1.25) mg/dL Glucose (74-99) mg/dL POC Glucose (mg/dL) 134 H 152 H 169 H (70-110) mg/dL Calcium (8.4-10.2) mg/dL Alkaline Phosphatase (38-126) U/L Total Protein (6.3-8.2) g/dL Albumin (3.5-5.0) g/dL 05/16/22 05/16/22 05/16/22 Range/Units 09:00 09:00 09:29 WBC 20.0 H (3.8-10.6) k/uL RBC 2.48 L (4.30-5.90) m/uL Hgb 8.0 L (13.0-17.5) gm/dL Hct 23.6 L (39.0-53.0) % Neutrophils # (Manual) 15.80 H (1.3-7.7) k/uL Monocytes # (Manual) 2.00 H (0-1.0) k/uL Metamyelocytes # (Man) 0.20 H (0) k/uL Sodium 129 L (137-145) mmol/L Creatinine 0.63 L (0.66-1.25) mg/dL Glucose 189 H (74-99) mg/dL POC Glucose (mg/dL) 212 H (70-110) mg/dL Calcium 7.6 L (8.4-10.2) mg/dL Alkaline Phosphatase 37 L (38-126) U/L Total Protein 4.8 L (6.3-8.2) g/dL Albumin 3.0 L (3.5-5.0) g/dL 05/16/22 05/16/22 Range/Units 10:39 11:56 WBC (3.8-10.6) k/uL RBC (4.30-5.90) m/uL Hgb (13.0-17.5) gm/dL Hct (39.0-53.0) % Neutrophils # (Manual) (1.3-7.7) k/uL Monocytes # (Manual) (0-1.0) k/uL Metamyelocytes # (Man) (0) k/uL Sodium (137-145) mmol/L Creatinine (0.66-1.25) mg/dL Glucose (74-99) mg/dL POC Glucose (mg/dL) 175 H 195 H (70-110) mg/dL Calcium (8.4-10.2) mg/dL Alkaline Phosphatase (38-126) U/L Total Protein (6.3-8.2) g/dL Albumin (3.5-5.0) g/dL Microbiology - Last 24 Hours (Table) 05/15/22 20:05 Gram Stain - Preliminary Sputum Sputum Culture - Preliminary Assessment and Plan Plan: Symptomatic multivessel coronary artery disease and the patient underwent four- vessel bypass surgery, quadrant currently postop day #2 Patient is hemodynamically stable. Adequate cardiac output and index. Patient is currently on no pressors. Post thoracotomy, extubated without any major difficulties, currently on 2 Loxygen. Chest tubes are still in place, output is being monitored Diabetes mellitus type 2 with a preoperative HbA1c of above 11, currently on insulin drip for blood sugar control Postsurgical anemia, anticipated outcome of surgery and the hemoglobin is currently at 8.0 Hypertension Hyperlipidemia History of smoking Recent history of non-ST segment elevation myocardial infarction Plan Continue using the incentive spirometer discontinue the Cordis and were also going to discontinue the mediastinal chest tube and keep the pleural chest tubes in place. We will going to discontinue t he Abernathy catheter. Monitor the output from the chest tube We will the [place]-Mya catheter The patient is going to be started on Levemir insulin 20 units along with 5 units of NovoLog with meals and a sliding scale coverage Give oxygen at 2 L/m nasal cannula Continue Pulmicort toileting Continue aspirin, Plavix, beta blockers with metoprolol 25 mg by mouth 3 times a day Continue supportive care and will continue to follow.
[2022-05-16 17:10] LABS: Glucose,Whole Blood 239 mg/dL (70-110)
[2022-05-16] MEDS ORDERED: INSULIN DETEMIR (LEVEMIR) 100 UNIT/ML SYR SQ ONE (17:30)
[2022-05-16 20:23] LABS: Glucose,Whole Blood 243 mg/dL (70-110)
[2022-05-16] MEDS: SENNOSIDES-DOCUSATE SODIUM 1 EACH TAB PO SCH (20:28)
[2022-05-17] MEDS: HEPARIN SODIUM,PORCINE/PF 5,000 UNIT/0.5 ML SYRINGE SQ SCH ×4 (00:23→23:49)
[2022-05-17] MEDS: KETOROLAC 15 MG/ML 1 ML VIAL IVP SCH ×3 (00:24→12:43)
[2022-05-17] MEDS: ACETAMINOPHEN TAB 325 MG TAB PO PRN ×2 (01:34→20:22)
[2022-05-17 06:44] LABS: Glucose,Whole Blood 161 mg/dL (70-110)
[2022-05-17] MEDS: PANTOPRAZOLE 40 MG TABLET PO SCH (06:49)
--- NOTE | 2022-05-17 08:09 | XR ---
EXAMINATION TYPE: XR chest 2V DATE OF EXAM: 05/17/2022 COMPARISON: 05/16/2022 HISTORY: Postcardiac surgery TECHNIQUE: Frontal and lateral views of the chest are obtained. FINDINGS: There are median sternotomy wires and vascular clips overlying the heart. There is been interval removal of the bilateral chest tubes. There is no pneumothorax. There are persistent mild by basilar predominantly linear opacities most likely representing atelecta sis no significant change since the prior study. The pulmonary vasculature is not appear congested. The osseous structures are otherwise intact. IMPRESSION: 1. Interval removal of the by lateral chest tube with no pneumothorax. 2. No change in the mild bibasilar atelectasis. 3. No pneumothorax.
[2022-05-17] MEDS: CLOPIDOGREL 75 MG TAB PO SCH (08:12)
[2022-05-17] MEDS: HYDROcodone/APAP 5-325MG 1 EACH TAB PO PRN (08:12)
[2022-05-17] MEDS: ASPIRIN 325 MG TAB PO SCH (08:12)
[2022-05-17] MEDS: METOPROLOL TARTRATE 25 MG TAB PO SCH ×2 (08:12→20:23)
[2022-05-17] MEDS: ATORVASTATIN 80 MG TAB PO SCH (08:12)
[2022-05-17] MEDS: INSULIN DETEMIR (LEVEMIR) 100 UNIT/ML SYR SQ SCH (08:13)
[2022-05-17] MEDS: INSULIN ASPART (NovoLOG) 100 UNIT/ML VIAL SQ SCH ×8 (08:14→22:51)
[2022-05-17] MEDS: IPRATROPIUM-ALBUTEROL 3 ML NEB INHALATION SCH ×6 (08:56→21:52)
[2022-05-17 09:05] LABS: ALT 29 U/L (4-49); AST 76 U/L (17-59); African American GFR (CKD) >90 (>60 ml/min/1.73 sqM); Albumin 3.1 g/dL (3.5-5.0); Alkaline Phosphatase 42 U/L (38-126); Anion Gap 7 mmol/L; Blood Urea Nitrogen 30 mg/dL (9-20); Carbon Dioxide 24 mmol/L (22-30); Chloride 97 mmol/L (98-107); Glucose 194 mg/dL (74-99); Magnesium 2.2 mg/dL (1.6-2.3); Non-African American GFR(CKD) >90 (>60 ml/min/1.73 sqM); Potassium 4.3 mmol/L (3.5-5.1); Sodium 128 mmol/L (137-145); Total Bilirubin 1.1 mg/dL (0.2-1.3); Total Protein 5.1 g/dL (6.3-8.2)
[2022-05-17 09:39] LABS: Basophils # (A) 0.1 k/uL (0-0.2); Basophils % (A) 0 %; Eosinophils # (A) 0.1 k/uL (0-0.7); Eosinophils % (A) 0 %; HCT 23.7 % (39.0-53.0); HGB 8.2 gm/dL (13.0-17.5); Lymphocytes # (A) 1.5 k/uL (1.0-4.8); Lymphocytes % (A) 8 %; MCH 33.2 pg (25.0-35.0); MCHC 34.4 g/dL (31.0-37.0); MCV 96.5 fL (80.0-100.0); Mean Platelet Volume 8.4; Monocytes # (A) 1.8 k/uL (0-1.0); Monocytes % (A) 10 %; Neutrophils # (A) 13.9 k/uL (1.3-7.7); Neutrophils % (A) 78 %; Platelet Count 190 k/uL (150-450); RBC 2.45 m/uL (4.30-5.90); RDW 12.7 % (11.5-15.5); WBC 17.8 k/uL (3.8-10.6)
--- NOTE | 2022-05-17 09:57 | P.PN ---
Subjective The patient is a 46-year-old male with past medical history of multivessel coronary artery disease, hypertension, significant smoking history, and u ncontrolled diabetes mellitus, who is currently admitted to the hospital after undergoing CABG [address] Sainz. He was successfully extubated and has been weaned from his pressors. It is postop day 1 and he was interviewed this morning sitting up comfortably in the recliner chair. He states he had some shortness of breath and chest pain with ambulation. 05/17 seen and examined. Patient denies any chest pain or pressure. Has a little bit of an appetite and has been tolerating food. No edema and no shortness of breath. His been on aspirin and Plavix without any hematochezia or melena. Blood pressure somewhat borderline with metoprolol 25 3 times a day. PHYSICAL EXAMINATION: This is a 46-year-old male in no apparent distress at the time of my examination. HEENT: Head is atraumatic, normocephalic. Pupils are equal, round. Sclerae anicteric. Conjunctivae are clear. Mucous membranes of the mouth are moist. Neck is supple. There is no jugular venous distention. No carotid bruit is heard. CHEST EXAMINATION: Lungs are diminished to auscultation. No chest wall tenderness is noted on palpation or with deep breathing. Sternal dressing in place. HEART EXAMINATION: Heart regular rate and rhythm. S1, S2 heard. No murmurs, gallops or rub. ABDOMEN: Soft, nontender. Bowel sounds are heard. No organomegaly noted. EXTREMITIES: 2+ peripheral pulses with no evidence of peripheral edema and no calf tenderness noted. NEUROLOGIC EXAMINATION: Patient is awake, alert and oriented x3. FINAL ASSESSMENT AND PLAN: Multivessel coronary artery disease Status post CABG 4 History of smoking History of hypertension History of diabetes mellitus PLAN: Continue supportive treatment Appears to be slowly recovering. Borderline blood pressures and continue with beta messi as tolerated. Further recommendations to be based on clinical course Objective - Vital Signs Vital signs: Vital Signs Temp 98.9 F 05/17/22 08:00 Pulse 84 05/17/22 09:11 Resp 16 05/17/22 09:11 BP 90/55 05/17/22 08:00 Pulse Ox 95 05/17/22 08:57 FiO2 50 05/14/22 17:56 Intake & Output 05/16/22 05/17/2222 18:59 06:59 18:59 Intake Total 459.988 Output Total 270 300 Balance 189.988 -300 Weight 76.7 kg Intake: IV 198 Lactated Ringers 1,000 ml 180 @ 20 mls/hr IV .Q24H [facility] Rx#:[id number] pressure bag 18 Intake, IV Titration 11.988 Amount Insulin Regular 100 unit 11.988 In Sodium Chloride 0.9% 100 ml @ Per Protocol IV .Q0M [facility] Rx#:[id number] Oral 250 Output: Drainage 60 Medial 10 left and right pleural 50 Urine 210 Post Void Residual 300 Other: Voiding Method Indwelling Catheter Urinal Urinal ABP, PAP, CO, CI - Last Documented Arterial Blood Pressure 138/128 Pulmonary Artery Pressure 21/6 Cardiac Output 7.7 Cardiac Index 4.3 - Labs CBC & Chem 7: 05/17/22 08:05 05/17/22 08:05 Labs: Abnormal Lab Results - Last 24 Hours (Table) 05/16/22 05/16/22 05/16/22 Range/Units 09:00 10:39 11:56 WBC (3.8-10.6) k/uL RBC (4.30-5.90) m/uL Hgb (13.0-17.5) gm/dL Hct (39.0-53.0) % Neutrophils # (1.3-7.7) k/uL Neutrophils # (Manual) 15.80 H (1.3-7.7) k/uL Monocytes # (0-1.0) k/uL Monocytes # (Manual) 2.00 H (0-1.0) k/uL Metamyelocytes # (Man) 0.20 H (0) k/uL Sodium (137-145) mmol/L Chloride (98-107) mmol/L BUN (9-20) mg/dL Glucose (74-99) mg/dL POC Glucose (mg/dL) 175 H 195 H (70-110) mg/dL Calcium (8.4-10.2) mg/dL AST (17-59) U/L Total Protein (6.3-8.2) g/dL Albumin (3.5-5.0) g/dL 05/16/22 05/16/22 05/17/22 Range/Units 17:07 20:22 06:42 WBC (3.8-10.6) k/uL RBC (4.30-5.90) m/uL Hgb (13.0-17.5) gm/dL Hct (39.0-53.0) % Neutrophils # (1.3-7.7) k/uL Neutrophils # (Manual) (1.3-7.7) k/uL Monocytes # (0-1.0) k/uL Monocytes # (Manual) (0-1.0) k/uL Metamyelocytes # (Man) (0) k/uL Sodium (137-145) mmol/L Chloride (98-107) mmol/L BUN (9-20) mg/dL Glucose (74-99) mg/dL POC Glucose (mg/dL) 239 H 243 H 161 H (70-110) mg/dL Calcium (8.4-10.2) mg/dL AST (17-59) U/L Total Protein (6.3-8.2) g/dL Albumin (3.5-5.0) g/dL 05/17/22 05/17/22 Range/Units 08:05 08:05 WBC 17.8 H (3.8-10.6) k/uL RBC 2.45 L (4.30-5.90) m/uL Hgb 8.2 L (13.0-17.5) gm/dL Hct 23.7 L (39.0-53.0) % Neutrophils # 13.9 H (1.3-7.7) k/uL Neutrophils # (Manual) (1.3-7.7) k/uL Monocytes # 1.8 H (0-1.0) k/uL Monocytes # (Manual) (0-1.0) k/uL Metamyelocytes # (Man) (0) k/uL Sodium 128 L (137-145) mmol/L Chloride 97 L (98-107) mmol/L BUN 30 H (9-20) mg/dL Glucose 194 H (74-99) mg/dL POC Glucose (mg/dL) (70-110) mg/dL Calcium 8.0 L (8.4-10.2) mg/dL AST 76 H (17-59) U/L Total Protein 5.1 L (6.3-8.2) g/dL Albumin 3.1 L (3.5-5.0) g/dL Microbiology - Last 24 Hours (Table) 05/15/22 20:05 Gram Stain - Preliminary Sputum Sputum Culture - Preliminary
[2022-05-17 11:41] LABS: Glucose,Whole Blood 201 mg/dL (70-110)
[2022-05-17] MEDS: amLODIPine 2.5 MG TAB PO SCH (12:44)
--- NOTE | 2022-05-17 13:08 | P.PN ---
Progress Note - Text Progress Note Date: 05/17/22 Hospital course: I'm rounding for Dr. Quoc Sarkar Patient status post 4 vessel coronary bypass. 05/17/2022: Sitting up in a chair. Eating about 50%. On room air. Breathing stable. Active Medications Acetaminophen (Acetaminophen Tab 325 Mg Tab) 650 mg PO Q4HR PRN PRN Reason: Fever and/ or Pain Last Admin: 05/17/22 01:34 Dose: 650 mg Albuterol/Ipratropium (Ipratropium-Albuterol 3 Ml Neb) 3 ml INHALATION RT-Q2H PRN PRN Reason: Shortness Of Breath Or Wheezing Albuterol/Ipratropium (Ipratropium-Albuterol 3 Ml Neb) 3 ml INHALATION RT-QID [facility] Last Admin: 05/17/22 11:35 Dose: 3 ml Amlodipine Besylate (Amlodipine 2.5 Mg Tab) 2.5 mg PO DAILY@1200 [facility] Last Admin: 05/17/22 12:44 Dose: 2.5 mg Aspirin (Aspirin 325 Mg Tab) 325 mg PO DAILY [facility] Last Admin: 05/17/22 08:12 Dose: 325 mg Atorvastatin Calcium (Atorvastatin 80 Mg Tab) 80 mg PO DAILY [facility] Last Admin: 05/17/22 08:12 Dose: 80 mg Benzocaine/Menthol (Benzocaine/Menthol Lozeng 1 Each Lozenge) 1 each MUCOUS MEM Q2H PRN PRN Reason: Sore Throat Bisacodyl (Bisacodyl 10 Mg Supp) 10 mg RECTAL DAILY PRN PRN Reason: Constipation Clopidogrel Bisulfate (Clopidogrel 75 Mg Tab) 75 mg PO DAILY [facility] Last Admin: 05/17/22 08:12 Dose: 75 mg Dextrose/Water (Dextrose 50% Syringe 50 Ml) 25 ml IVP PER PROTOCOL PRN; Protocol PRN Reason: Hypoglycemia Dextrose/Water (Dextrose 50% Syringe 50 Ml) 50 ml IVP PER PROTOCOL PRN; Protocol PRN Reason: Hypoglycemia Heparin Sodium (Porcine) (Heparin Sodium,Porcine/Pf 5,000 Unit/0.5 Ml Syringe) 5,000 unit SQ Q8HR [facility] Last Admin: 05/17/22 08:13 Dose: 5,000 unit Amiodarone HCl 360 mg/ (Dextrose/Water) 207.2 mls @ 34.533 mls/hr IV .Q6H PRN; Protocol PRN Reason: A.FIB/FLUTTER Amiodarone HCl 150 mg/ (Dextrose/Water) 103 mls @ 618 mls/hr IV .Q10M PRN; Protocol PRN Reason: A.FIB/FLUTTER Amiodarone HCl 450 mg/ (Dextrose/Water) 250 mls @ 16.667 mls/hr IV .Q15H PRN; Protocol PRN Reason: A.FIB/FLUTTER Insulin Aspart (Insulin Aspart (Novolog) 100 Unit/Ml Vial) 5 unit SQ AC-TID [facility] Last Admin: 05/17/22 12:44 Dose: 5 unit Insulin Aspart (Insulin Aspart (Novolog) 100 Unit/Ml Vial) 0 unit SQ ACHS [facility]; Protocol Last Admin: 05/17/22 12:45 Dose: 6 unit Insulin Detemir (Insulin Detemir (Levemir) 100 Unit/Ml Syr) 20 unit SQ DAILY@07 00 [facility] Last Admin: 05/17/22 08:13 Dose: 20 unit Ketorolac Tromethamine (Ketorolac 15 Mg/Ml 1 Ml Vial) 15 mg IVP Q6HR [facility] Stop: 05/21/22 11:00 Last Admin: 05/17/22 12:43 Dose: 15 mg Magnesium Hydroxide (Magnesium Hydroxide 2,400 Mg/10 Ml Cup) 2,400 mg PO BID PRN PRN Reason: Constipation Metoclopramide HCl (Metoclopramide 5 Mg/Ml 2 Ml Vial) 10 mg IVP Q4H PRN PRN Reason: Nausea And Vomiting Last Admin: 05/17/22 08:13 Dose: 10 mg Metoprolol Tartrate (Metoprolol Tartrate 25 Mg Tab) 25 mg PO BID [facility] Miscellaneous Information (Potassium Replacement Protocol 1 Each Misc) 1 each MISCELLANE DAILY PRN; Protocol PRN Reason: Per Protocol Miscellaneous Information (Magnesium Replacement Protocol 1 Each Misc) 1 each MISCELLANE DAILY PRN; Protocol PRN Reason: Per Protocol Miscellaneous Information (Magnesium Replacement Protocol 1 Each Misc) 1 each MISCELLANE DAILY PRN; Protocol PRN Reason: Per Protocol Ondansetron HCl (Ondansetron 4 Mg/2 Ml Vial) 4 mg IVP Q6HR PRN PRN Reason: Nausea And Vomiting Last Admin: 05/17/22 06:22 Dose: 4 mg Pantoprazole Sodium (Pantoprazole 40 Mg Tablet) 40 mg PO AC-BRKFST [facility] Last Admin: 05/17/22 06:49 Dose: 40 mg Senna/Docusate Sodium (Sennosides-Docusate Sodium 1 Each Tab) 2 each PO HS [facility] Last Admin: 05/16/22 20:28 Dose: 2 each Sodium Chloride (Sodium Chloride 0.9% Flush 10 Ml Syringe) 10 ml IV BID [facility] Last Admin: 05/17/22 12:44 Dose: 10 ml On examination: VITAL SIGNS: [86, 14, 93/62, 94% room air] GENERAL APPEARANCE: BMI 28.1, sitting up in a chair awake comfortable HEENT: Normal external appearance of nose and ear. Oral cavity normal EYES: Pupils equal. Conjunctiva normal. NECK: JVD not raised. Mass not palpable. RESPIRATORY: Respiratory effort normal. Lungs increased breath sounds CARDIOVASCULAR: First and second sounds normal. No edema. ABDOMEN: Soft. Liver and spleen not palpable. No tenderness. No mass palpable. PSYCHIATRY: Alert and oriented x3. Mood and affect normal. INVESTIGATIONS, reviewed in the clinical context: White count 17.8 hemoglobin 8.2 platelets with 90 potassium 4.3 creatinine 0.86 sodium 128 Assessment and plan: -CABG 4. Left atrial appendage ligation. Aspirin, Lopressor -Diabetes mellitus type 2 Levemir. Follow sliding scale -Acute postprocedure blood loss anemia expected from surgery Ferrous sulfate -Essential hypertension Amlodipine, Lopressor -Hyperlipidemia Lipitor -CAD Aspirin Lopressor -Hyponatremia from decreased solute intake Encourage oral intake
--- NOTE | 2022-05-17 13:24 | P.PN ---
Subjective Progress Note Date: 05/17/22 Principal diagnosis: Triple-vessel coronary artery disease with recent non-STEMI. Past medical history significant for hypertension, insulin-dependent diabetes, previous tobacco dependence, splenectomy, Covid infection in summer 2021 POD #3 coronary artery bypass grafting 4, left internal thoracic artery sequenced to the first diagonal artery then the left anterior descending artery, left radial artery on the aorta to the ramus intermedius, reverse saphenous vein graft from the aorta to the proximal posterior descending coronary artery, left atrial appendage ligation using a 35 mm AtriClip, endoscopic harvesting of the left radial and right greater saphenous vein, graft flow measurements using the Energatest[employer] system, intraoperative transesophageal echocardiogram performed by anesthesia Postoperative acute blood loss anemia, expected secondary to hemodilution. Leukocytosis, expected, reactive. The patient was seen and examined in follow-up today 05/17/2022 at the bedside in the intensive care unit. Currently he is sitting up to the bedside chair, is awake, alert, oriented 3 and is in no acute apparent distress. Denies any complaints of shortness of breath or pain at this time. He is complaining of some episodes of nausea which he reports started this morning. The patient states that his nausea was treated which has improved somewhat since the treatme nt. Oxygen saturations are 97% on room air and he is achieving 1000 1500 mL on his incentive spirometry with much encouragement. He remains hemodynamically stable and is currently on no inotropic or pressor support. He continues to ambulate in the intensive care unit hallway with standby assistance from nursing staff. Laboratory results this morning show a WBC count trending down at 17.8, hemoglobin 8.2, hematocrit 23.7, platelets 190, sodium 128, potassium 4.3, BUN 30, creatinine 0.86, calcium 8.0 and magnesium 2.2. Chest x-ray was reviewed. Objective - Vital Signs Vital signs: Vital Signs Temp 98.8 F 05/17/22 12:00 Pulse 92 05/17/22 12:00 Resp 17 05/17/22 12:00 BP 103/69 05/17/22 12:00 Pulse Ox 94 L 05/17/22 12:00 FiO2 50 05/14/22 17:56 Intake & Output 05/16/22 05/17/22 05/17/22 18:59 06:59 18:59 Intake Total 459.988 Output Total 270 300 450 Balance 189.988 -300 -450 Weight 76.7 kg Intake: IV 198 Lactated Ringers 1,000 ml 180 @ 20 mls/hr IV .Q24H [facility] Rx#:[id number] pressure bag 18 Intake, IV Titration 11.988 Amount Insulin Regular 100 unit 11.988 In Sodium Chloride 0.9% 100 ml @ Per Protocol IV .Q0M [facility] Rx#:[id number] Oral 250 Output: Drainage 60 Medial 10 left and right pleural 50 Urine 210 450 Post Void Residual 300 Other: Voiding Method Indwelling Catheter Urinal Urinal ABP, PAP, CO, CI - Last Documented Arterial Blood Pressure 138/128 Pulmonary Artery Pressure 21/6 Cardiac Output 7.7 Cardiac Index 4.3 - Exam CONSTITUTIONAL: Appears comfortable, cooperative, no acute distress RESPIRATORY: Lungs sounds diminished bilaterally. Respirations even, nonlabored. Currently on room air with oxygen saturation 97%. Able to achieve 5437-5343 mL on incentive spirometry. Strong productive cough. CARDIOVASCULAR: S1, S2 present. Regular rate and rhythm, sinus rhythm on telemetry. Sternum stable. Palpable peripheral pulses bilaterally. No edema present. No calf pain or tenderness noted. Heart hugger in place with patient demonstrating appropriate use. Antiembolism stockings, SCDs present. GASTROINTESTINAL: Abdomen soft, nontender, nondistended. Active bowel sounds present 4 quadrants. Tolerating minimal diet. Passing flatus. GENITOURINARY: Continues to void. 300 mL of urine output the last 8 hours. INTEGUMENTARY: Skin is warm and dry with evidence of good perfusion. Midline sternal incision is well approximated and covered with dry intact dressing. Left radial artery harvest site as well as right lower extremity EVH site well approximated without redness or drainage. NEUROLOGIC: Cranial nerves II through XII intact. MUSKULOSKELETAL: Able to move all extremities, strength equal bilaterally. PSYCHIATRIC: Alert and oriented to person place and time, appropriate affect, intact judgment and insight. INVASIVE LINES AND TUBES: Atrial and ventricular epicardial pacemaker wires in place and rounded. - Labs CBC & Chem 7: 05/17/22 08:05 05/17/22 08:05 Labs: Abnormal Lab Results - Last 24 Hours (Table) 05/16/22 05/16/22 05/16/22 Range/Units 09:00 17:07 20:22 WBC (3.8-10.6) k/uL RBC (4.30-5.90) m/uL Hgb (13.0-17.5) gm/dL Hct (39.0-53.0) % Neutrophils # (1.3-7.7) k/uL Neutrophils # (Manual) 15.80 H (1.3-7.7) k/uL Monocytes # (0-1.0) k/uL Monocytes # (Manual) 2.00 H (0-1.0) k/uL Metamyelocytes # (Man) 0.20 H (0) k/uL Sodium (137-145) mmol/L Chloride (98-107) mmol/L BUN (9-20) mg/dL Glucose (74-99) mg/dL POC Glucose (mg/dL) 239 H 243 H (70-110) mg/dL Calcium (8.4-10.2) mg/dL AST (17-59) U/L Total Protein (6.3-8.2) g/dL Albumin (3.5-5.0) g/dL 05/17/22 05/17/22 05/17/22 Range/Units 06:42 08:05 08:05 WBC 17.8 H (3.8-10.6) k/uL RBC 2.45 L (4.30-5.90) m/uL Hgb 8.2 L (13.0-17.5) gm/dL Hct 23.7 L (39.0-53.0) % Neutrophils # 13.9 H (1.3-7.7) k/uL Neutrophils # (Manual) (1.3-7.7) k/uL Monocytes # 1.8 H (0-1.0) k/uL Monocytes # (Manual) (0-1.0) k/uL Metamyelocytes # (Man) (0) k/uL Sodium 128 L (137-145) mmol/L Chloride 97 L (98-107) mmol/L BUN 30 H (9-20) mg/dL Glucose 194 H (74-99) mg/dL POC Glucose (mg/dL) 161 H (70-110) mg/dL Calcium 8.0 L (8.4-10.2) mg/dL AST 76 H (17-59) U/L Total Protein 5.1 L (6.3-8.2) g/dL Albumin 3.1 L (3.5-5.0) g/dL 05/17/22 Range/Units 11:39 WBC (3.8-10.6) k/uL RBC (4.30-5.90) m/uL Hgb (13.0-17.5) gm/dL Hct (39.0-53.0) % Neutrophils # (1.3-7.7) k/uL Neutrophils # (Manual) (1.3-7.7) k/uL Monocytes # (0-1.0) k/uL Monocytes # (Manual) (0-1.0) k/uL Metamyelocytes # (Man) (0) k/uL Sodium (137-145) mmol/L Chloride (98-107) mmol/L BUN (9-20) mg/dL Glucose (74-99) mg/dL POC Glucose (mg/dL) 201 H (70-110) mg/dL Calcium (8.4-10.2) mg/dL AST (17-59) U/L Total Protein (6.3-8.2) g/dL Albumin (3.5-5.0) g/dL Microbiology - Last 24 Hours (Table) 05/15/22 20:05 Gram Stain - Final Sputum Sputum Culture - Final Assessment and Plan Assessment: 1. Triple-vessel coronary artery disease with recent non-STEMI, status post four-vessel CABG 2. History of hypertension 3. Poorly controlled insulin-dependent diabetes, preoperative hemoglobin A1c 9.6% 4. Previous tobacco dependence with recent cessation, preoperative FEV1 85% predicted 5. Splenectomy 6. Covid infection in summer 2021, remains unvaccinated 7. Postoperative acute blood loss anemia, expected 8. Leukocytosis, expected Plan: 1. Continue aspirin, statin, Plavix, beta messi therapy. Metoprolol tartrate decreased to 25 mg by mouth twice a day. 2. Continue amlodipine 2.5 mg by mouth daily at noon for radial artery spasm prophylaxis. 3. Encourage incentive spirometry use 10 times every hour while awake. Bronchodilators per pulmonology. 4. Increase activity, ambulate as tolerated. PT/OT/cardiac rehab following. 5. Will monitor daily labs and chest x-rays. Electrolyte replacement per protocol 6. GI/DVT prophylaxis. 7. Pain control with current medication regimen. [place] discontinued. 8. Insulin management per internal medicine. Patient needs tight blood sugar control to prevent infection and promote healing. 9. Continue epicardial pacemaker wires, grounded. 10. Lasix 20 mg IV 1 now. 11. Continue record strict inaccurate intake and output. May bladder scan and straight cath for greater than 300 mL residual. 12. Transfers orders placed to the third floor cardiac stepdown unit. 13. Continue to encourage smoking cessation 14. More recommendations to follow based on patient's clinical course. Time with Patient: Greater than 30
--- NOTE | 2022-05-17 15:04 | P.PN ---
Subjective Progress Note Date: 05/17/22 This is a 46-year-old male patient with known history of triple-vessel coronary artery disease, previous non-ST segment elevation myocardial infarction oh underwent four-vessel bypass surgery. The patient arrived to the intensive care unit following the surgery. Immediately after the arrival, the patient was found to have some hypertension and shaking. He was not sick is a mechanical ventilator. Based on that, he started on propofol which is currently running at 50 and Precedex is running at 0.0 0.2 mcg/kg/h. He is most interested a mechanical ventilator. At this point in time he is exchanging his volumes and is on assist control at the rate of 24 with a tidal volume of 500 and FiO2 of 60% with PEEP of 10. The PEEP was increased as the patient was having excessive amount of output from the chest tubes that were inserted in the operating room. The patient currently has 1 mediastinal and one by 201 left pleural. Most of the output is from the pleural chest tube. Mediastinal output is also in order of 600 mL, urine output is in the order out 600 mL. Initial blood gas was poor and the necessity ventilator changes were done and we are awaiting the follow-up blood gases. His current cardiac rhythm is sinus. His pulmonary artery pressures of 25/12. Cardiac output is at 8.5 with an index of 4.7. Urine output is adequate in the order of 30-40 mL an hour. He is on IV fluids cu rrently running at 50 mL an hour of normal saline and he had 500 mL of albumin 5% postop. He is blood work at this point in time. The white cell count is at 29 and a hemoglobin of 12.1 and platelets of 221. Chest x-ray showing atelectatic changes in the right midlung and the left lower lobe area. He was admitted location. The patient is wondering if catheter which is an excellent location. 42 was also in good location. No airspace disease. No pneumothorax. Chest is at location. Insulin is currently at 2 units an hour On today's evaluation of 05/15/2022, the patient is calm and comfortable sitting up on a chair on room air oxygen. Noted the patient was extubated yesterday without any major difficulties. On today's evaluation, the patient is awake and alert and following commands and answering questions. He is using the incentive spirometer and his falling approximately 1000. He has excellent urine output and the order of 75 mL an hour. His cardiac output is at 7.7 with an index of 4.3. Pulmonary artery pressures of 27/6. The patient's cardiac rhythm is some mild sinus tachycardia. Otherwise, he is on insulin 5 units an hour for tight blood sugar control. He had a chest tubes in place and the B cell chest tube has drained approximately 750 and the right and left pleural chest tubes are connected and they are drained around 1000 since the patient arrived from the operating room. On today's blood work, the white cell count is 15.9 with a hemoglobin of 8.2 and a platelet count of 174, sodium is at 135, bicarbonate 26, potassium level III.8, BUN is 16 with a creatinine of 0.5. The chest x-ray from today shows postsurgical changes, atelectatic changes lung bases and the chest tubes are all in good location. No evidence of any pneumothorax. 05/16/2022, the patient is being seen for a follow-up. The patient is currently on 2 L of oxygen by nasal cannula. Chest is still in place, the mediastinal chest tube has put out approximately 7 to his over the past 12 hours and the pleural chest exit without approximately 80 mL over the past 12 hours. The patient is a hemoglobin of 8.0. BUN is at 70 with a creatinine of 0.6. Hemodynamically stable. Cardiac rhythm is sinus. Pain is under adequate control. Using incentive spirometer. Chest x-ray showing some atelectatic change in lung bases along with some mild pulmonary vascular congestion. The blood work from today shows a white cell count of 20 with a hemoglobin of 8 and a platelet count of 153. BUN is at 70 with a creatinine of 0.6.. 05/17/2022, patient is doing well and he is sitting up on a chair. There is on room air oxygen. All of the chest symptoms of removed. Cardiac rhythm is sinus. Using incentive spirometer and falling approximately 1000. He is on Levemir insulin 20 units daily. The WBC count at 17.8 with a hemoglobin 8.2 and a platelet count of 119. His sodium is at 128, BUN is at 30 with a creatinine of 0.8. The patient has been essentially doing well. No other significant events. He is ambulating. Sternal wound is dry clean and intact and the patient is having adequate pain control for now. Objective - Vital Signs Vital signs: Vital Signs Temp 98.1 F 05/17/22 14:57 Pulse 92 05/17/22 14:57 Resp 16 05/17/22 14:57 BP 114/64 05/17/22 14:57 Pulse Ox 94 L 05/17/22 14:57 FiO2 50 05/14/22 17:56 Intake & Output 05/16/22 05/17/22 05/17/22 18:59 06:59 18:59 Intake Total 459.988 Output Total 270 300 450 Balance 189.988 -300 -450 Weight 76.7 kg Intake: IV 198 Lactated Ringers 1,000 ml 180 @ 20 mls/hr IV .Q24H [facility] Rx#:[id number] pressure bag 18 Intake, IV Titration 11.988 Amount Insulin Regular 100 unit 11.988 In Sodium Chloride 0.9% 100 ml @ Per Protocol IV .Q0M [facility] Rx#:[id number] Oral 250 Output: Drainage 60 Medial 10 left and right pleural 50 Urine 210 450 Post Void Residual 300 Other: Voiding Method Indwelling Catheter Urinal Urinal ABP, PAP, CO, CI - Last Documented Arterial Blood Pressure 138/128 Pulmonary Artery Pressure 21/6 Cardiac Output 7.7 Cardiac Index 4.3 - Exam CONSTITUTIONAL: Appears comfortable, cooperative, no acute distress RESPIRATORY: Lungs sounds diminished bilaterally. Respirations even, nonlabored. Currently on room air with oxygen saturation 97%. Able to achieve 2868-0849 mL on incentive spirometry. Strong productive cough. CARDIOVASCULAR: S1, S2 present. Regular rate and rhythm, sinus rhythm on telemetry. Sternum stable. Palpable peripheral pulses bilaterally. No edema present. No calf pain or tenderness noted. Heart hugger in place with patient demonstrating appropriate use. Antiembolism stockings, SCDs present. GASTROINTESTINAL: Abdomen soft, nontender, nondistended. Active bowel sounds present 4 quadrants. Tolerating minimal diet. Passing flatus. GENITOURINARY: Continues to void. 300 mL of urine output the last 8 hours. INTEGUMENTARY: Skin is warm and dry with evidence of good perfusion. Midline sternal incision is well approximated and covered with dry intact dressing. Left radial artery harvest site as well as right lower extremity EVH site well approximated without redness or drainage. NEUROLOGIC: Cranial nerves II through XII intact. MUSKULOSKELETAL: Able to move all extremities, strength equal bilaterally. PSYCHIATRIC: Alert and oriented to person place and time, appropriate affect, intact judgment and insight. INVASIVE LINES AND TUBES: Atrial and ventricular epicardial pacemaker wires in place and rounded. - Labs CBC & Chem 7: 05/17/22 08:05 05/17/22 08:05 Labs: Abnormal Lab Results - Last 24 Hours (Table) 05/16/22 05/16/22 05/17/22 Range/Units 17:07 20:22 06:42 WBC (3.8-10.6) k/uL RBC (4.30-5.90) m/uL Hgb (13.0-17.5) gm/dL Hct (39.0-53.0) % Neutrophils # (1.3-7.7) k/uL Monocytes # (0-1.0) k/uL Sodium (137-145) mmol/L Chloride (98-107) mmol/L BUN (9-20) mg/dL Glucose (74-99) mg/dL POC Glucose (mg/dL) 239 H 243 H 161 H (70-110) mg/dL Calcium (8.4-10.2) mg/dL AST (17-59) U/L Total Protein (6.3-8.2) g/dL Albumin (3.5-5.0) g/dL 05/17/22 05/17/22 05/17/22 Range/Units 08:05 08:05 11:39 WBC 17.8 H (3.8-10.6) k/uL RBC 2.45 L (4.30-5.90) m/uL Hgb 8.2 L (13.0-17.5) gm/dL Hct 23.7 L (39.0-53.0) % Neutrophils # 13.9 H (1.3-7.7) k/uL Monocytes # 1.8 H (0-1.0) k/uL Sodium 128 L (137-145) mmol/L Chloride 97 L (98-107) mmol/L BUN 30 H (9-20) mg/dL Glucose 194 H (74-99) mg/dL POC Glucose (mg/dL) 201 H (70-110) mg/dL Calcium 8.0 L (8.4-10.2) mg/dL AST 76 H (17-59) U/L Total Protein 5.1 L (6.3-8.2) g/dL Albumin 3.1 L (3.5-5.0) g/dL Microbiology - Last 24 Hours (Table) 05/15/22 20:05 Gram Stain - Final Sputum Sputum Culture - Final Assessment and Plan Plan: Symptomatic multivessel coronary artery disease and the patient underwent four- vessel bypass surgery, quadrant currently postop day #3 Patient is hemodynamically stable. Adequate cardiac output and index. Patient is currently on no pressors. Post thoracotomy, extubated without any major difficulties, chest tubes are removed and the patient is currently on room air oxygen Diabetes mellitus type 2 with a preoperative HbA1c of above 11, currently on Levemir insulin for blood sugar control Postsurgical anemia, anticipated outcome of surgery and the hemoglobin is currently at 8.2 Hypertension Hyperlipidemia History of smoking Recent history of non-ST segment elevation myocardial infarction Plan Continue using the incentive spirometer Patient is currently on room air oxygen Chest tubes removed Continue supportive care Continue aspirin and Plavix and metoprolol 25 mg twice a day Lasix 20 mg IV push 1 Levemir insulin 20 units along with 5 units of NovoLog with meals and a sliding scale coverage Continue aspirin, Plavix, beta blockers with metoprolol 25 mg by mouth 3 times a day Continue supportive care and will continue to follow.
[2022-05-17 16:40] LABS: Glucose,Whole Blood 217 mg/dL (70-110)
[2022-05-17] MEDS: FERROUS SULFATE 325 MG TAB PO SCH (17:04)
[2022-05-17 20:16] LABS: Glucose,Whole Blood 145 mg/dL (70-110)
[2022-05-17] MEDS: SENNOSIDES-DOCUSATE SODIUM 1 EACH TAB PO SCH (20:23)
[2022-05-17 22:57] LABS: Glucose,Whole Blood 101 mg/dL (70-110)
[2022-05-18 00:40] LABS: Appearance,Urine Clear (Clear); Bilirubin,Urine Negative (Negative); Blood,Urine Negative (Negative); Color,Urine Light Yellow; Glucose,Urine (UA) Negative (Negative); Ketones,Urine Negative (Negative); Leukocyte Esterase,Urine Negative (Negative); Nitrite,Urine Negative (Negative); PH, Urine 5.5 (5.0-8.0); Protein,Urine Negative (Negative); Specific Gravity,Urine 1.006 (1.001-1.035); Urobilinogen,Urine <2.0 mg/dL (<2.0)
[2022-05-18] MEDS: ACETAMINOPHEN TAB 325 MG TAB PO PRN ×2 (04:15→08:28)
[2022-05-18 06:19] LABS: Glucose,Whole Blood 137 mg/dL (70-110)
[2022-05-18] MEDS: FERROUS SULFATE 325 MG TAB PO SCH ×2 (06:59→17:23)
[2022-05-18] MEDS: INSULIN DETEMIR (LEVEMIR) 100 UNIT/ML SYR SQ SCH (07:00)
[2022-05-18] MEDS: PANTOPRAZOLE 40 MG TABLET PO SCH (07:01)
[2022-05-18] MEDS: INSULIN ASPART (NovoLOG) 100 UNIT/ML VIAL SQ SCH ×7 (07:02→20:34)
--- NOTE | 2022-05-18 07:07 | XR ---
EXAMINATION TYPE: XR chest 1V portable DATE OF EXAM: 05/18/2022 6:55 AM COMPARISON: Chest radiograph from one day prior. TECHNIQUE: XR chest 1V portable Frontal view of the chest. CLINICAL INDICATION:Male, 46 years old with history of Postop CABG; FINDINGS: Lungs/Pleura: There is no evidence of focal consolidation, or pneumothorax. Blunting of the left cos tophrenic angle. Left basilar atelectasis. Pulmonary vascularity: Unremarkable. Heart/mediastinum: Cardiomediastinal silhouette is unremarkable. Left atrial appendage occlusion dennis ce is present. Musculoskeletal: No acute osseous pathology. Midline sternotomy wires are noted. IMPRESSION: Small left pleural effusion and basilar atelectasis.
[2022-05-18 07:17] LABS: Glucose,Whole Blood 136 mg/dL (70-110)
[2022-05-18] MEDS: ACETYLCYSTEINE 800 MG/4 ML VIAL INHALATION SCH ×3 (07:55→20:18)
[2022-05-18] MEDS: IPRATROPIUM-ALBUTEROL 3 ML NEB INHALATION SCH ×4 (07:56→20:18)
[2022-05-18 08:19] LABS: ALT 35 U/L (4-49); AST 69 U/L (17-59); African American GFR (CKD) >90 (>60 ml/min/1.73 sqM); Alkaline Phosphatase 51 U/L (38-126); Anion Gap 3 mmol/L; Blood Urea Nitrogen 25 mg/dL (9-20); Calcium 7.8 mg/dL (8.4-10.2); Carbon Dioxide 27 mmol/L (22-30); Chloride 98 mmol/L (98-107); Glucose 173 mg/dL (74-99); Non-African American GFR(CKD) >90 (>60 ml/min/1.73 sqM); Potassium 3.9 mmol/L (3.5-5.1); Sodium 128 mmol/L (137-145); Total Bilirubin 1.2 mg/dL (0.2-1.3); Total Protein 5.1 g/dL (6.3-8.2)
[2022-05-18] MEDS: ASPIRIN 325 MG TAB PO SCH (08:28)
[2022-05-18] MEDS: ATORVASTATIN 80 MG TAB PO SCH (08:29)
[2022-05-18] MEDS: HEPARIN SODIUM,PORCINE/PF 5,000 UNIT/0.5 ML SYRINGE SQ SCH ×3 (08:29→23:16)
[2022-05-18] MEDS: METOPROLOL TARTRATE 25 MG TAB PO SCH ×2 (08:29→20:34)
[2022-05-18] MEDS: CLOPIDOGREL 75 MG TAB PO SCH (08:29)
[2022-05-18 08:46] LABS: HCT 22.2 % (39.0-53.0); HGB 7.7 gm/dL (13.0-17.5); MCH 32.7 pg (25.0-35.0); MCHC 34.5 g/dL (31.0-37.0); MCV 94.7 fL (80.0-100.0); Mean Platelet Volume 7.3; Platelet Count 275 k/uL (150-450); RBC 2.34 m/uL (4.30-5.90); RDW 13.2 % (11.5-15.5); WBC 15.6 k/uL (3.8-10.6)
[2022-05-18] MEDS ORDERED: POTASSIUM CHLORIDE ER 10 MEQ TAB.ER.PRT PO STA (09:51)
[2022-05-18] MEDS ORDERED: FUROSEMIDE 10 MG/ML 2 ML VIAL IV ONE (09:52)
[2022-05-18 12:08] LABS: Glucose,Whole Blood 133 mg/dL (70-110)
--- NOTE | 2022-05-18 12:54 | P.PN ---
Subjective Progress Note Date: 05/18/22 Principal diagnosis: Triple-vessel coronary artery disease with recent non-STEMI. Past medical history significant for hypertension, insulin-dependent diabetes, previous tobacco dependence, splenectomy, Covid infection in summer 2021 POD #4 coronary artery bypass grafting 4, left internal thoracic artery sequenced to the first diagonal artery then the left anterior descending artery, left radial artery on the aorta to the ramus intermedius, reverse saphenous vein graft from the aorta to the proximal posterior descending coronary artery, left atrial appendage ligation using a 35 mm AtriClip, endoscopic harvesting of the left radial and right greater saphenous vein, graft flow measurements using the Ocisionstim system, intraoperative transesophageal echocardiogram performed by anesthesia Postoperative acute blood loss anemia, expected secondary to hemodilution. Leukocytosis, expected, reactive. The patient was seen and examined in follow-up today 05/18/2022 at his bedside on the cardiac stepdown unit. Currently the patient is sitting up to the bedside chair, is awake, alert, oriented 3 and is in no acute apparent distress. The patient is complaining of feeling tired today, although denies any complaints of shortness of breath or pain. His T-max temperature in the last 24 hours was 102.5F. A urinalysis was sent along with a sputum culture. Urinalysis was negative for UTI and sputum culture results remain pending. Oxygen saturation are 93% on room air and he is achieving 0141-9035 mL on his incentive spirometry with much encouragement. Reinforced the importance of ambulating and using his incentive spirometry with the patient. Remote telemetr y showing normal sinus rhythm heart rate 94 BPM. Laboratory results this morning show a WBC count trending down at 15.6, hemoglobin 7.7, hematocrit 22.2, platelets 275, sodium 128, potassium 3.9, BUN 25, creatinine 0.75, glucose 173 and calcium 7.8. Chest x-ray reviewed. Atrial and ventricular epicardial pacemaker wires remain in place and are grounded. Objective - Vital Signs Vital signs: Vital Signs Temp 98.5 F 05/18/22 08:20 Pulse 90 05/18/22 12:16 Resp 18 05/18/22 08:20 BP 94/60 05/18/22 08:20 Pulse Ox 100 05/18/22 12:00 FiO2 50 05/14/22 17:56 Intake & Output 05/17/22 05/18/22 05/18/22 18:59 06:59 18:59 Intake Total 60 Output Total 450 2000 800 Balance -450 -1999 -740 Weight 75.6 kg Intake: Oral 60 Output: Drainage 0 Medial 0 Urine 450 1750 800 Post Void Residual 250 Other: Voiding Method Urinal Urinal Urinal ABP, PAP, CO, CI - Last Documented Arterial Blood Pressure 138/128 Pulmonary Artery Pressure 21/6 Cardiac Output 7.7 Cardiac Index 4.3 - Exam CONSTITUTIONAL: Appears comfortable, cooperative, no acute distress RESPIRATORY: Lungs sounds essentially clear throughout, diminished bilaterally to his bases. Respirations are symmetrical, nonlabored. Currently on room air with oxygen saturation 93%. Able to achieve 6048-1787 mL on incentive spirometry. Strong productive cough. CARDIOVASCULAR: S1, S2 present. Regular rate and rhythm, sinus rhythm on telemetry with a heart rate of 94 BPM.. Sternum stable. Palpable peripheral pulses bilaterally. No edema present. No calf pain or tenderness noted. Heart hugger in place with patient demonstrating appropriate use. Antiembolism stockings, SCDs present. GASTROINTESTINAL: Abdomen soft, nontender, nondistended. Active bowel sounds present 4 quadrants. Tolerating minimal diet. Passing flatus. GENITOURINARY: Continues to void. 1650 mL of urine output the last 8 hours. INTEGUMENTARY: Skin is warm and dry with evidence of good perfusion. Midline sternal incision is well approximated and covered with dry intact dressing. Left radial artery harvest site as well as right lower extremity EVH site well approximated without redness or drainage. NEUROLOGIC: Cranial nerves II through XII intact. MUSKULOSKELETAL: Able to move all extremities, strength equal bilaterally. PSYCHIATRIC: Alert and oriented to person place and time, appropriate affect, intact judgment and insight. INVASIVE LINES AND TUBES: Atrial and Ventricular epicardial pacemaker wires in place and rounded. - Allied health notes Allied health notes reviewed: nursing - Labs CBC & Chem 7: 05/18/22 07:49 05/18/22 07:49 Labs: Abnormal Lab Results - Last 24 Hours (Table) 05/17/22 05/17/22 05/18/22 Range/Units 16:39 20:14 06:18 WBC (3.8-10.6) k/uL RBC (4.30-5.90) m/uL Hgb (13.0-17.5) gm/dL Hct (39.0-53.0) % Sodium (137-145) mmol/L BUN (9-20) mg/dL Glucose (74-99) mg/dL POC Glucose (mg/dL) 217 H 145 H 137 H (70-110) mg/dL Calcium (8.4-10.2) mg/dL AST (17-59) U/L Total Protein (6.3-8.2) g/dL Albumin (3.5-5.0) g/dL 05/18/22 05/18/22 05/18/22 Range/Units 07:15 07:49 07:49 WBC 15.6 H (3.8-10.6) k/uL RBC 2.34 L (4.30-5.90) m/uL Hgb 7.7 L (13.0-17.5) gm/dL Hct 22.2 L (39.0-53.0) % Sodium 128 L (137-145) mmol/L BUN 25 H (9-20) mg/dL Glucose 173 H (74-99) mg/dL POC Glucose (mg/dL) 136 H (70-110) mg/dL Calcium 7.8 L (8.4-10.2) mg/dL AST 69 H (17-59) U/L Total Protein 5.1 L (6.3-8.2) g/dL Albumin 3.0 L (3.5-5.0) g/dL 05/18/22 Range/Units 12:07 WBC (3.8-10.6) k/uL RBC (4.30-5.90) m/uL Hgb (13.0-17.5) gm/dL Hct (39.0-53.0) % Sodium (137-145) mmol/L BUN (9-20) mg/dL Glucose (74-99) mg/dL POC Glucose (mg/dL) 133 H (70-110) mg/dL Calcium (8.4-10.2) mg/dL AST (17-59) U/L Total Protein (6.3-8.2) g/dL Albumin (3.5-5.0) g/dL Microbiology - Last 24 Hours (Table) 05/15/22 20:05 Gram Stain - Final Sputum Sputum Culture - Final - Imaging and Cardiology Chest x-ray: report reviewed, image reviewed Assessment and Plan Assessment: 1. Triple-vessel coronary artery disease with recent non-STEMI, status post four-vessel CABG 2. History of hypertension 3. Poorly controlled insulin-dependent diabetes, preoperative hemoglobin A1c 9.6% 4. Previous tobacco dependence with recent cessation, preoperative FEV1 85% predicted 5. Splenectomy 6. Covid infection in summer 2021, remains unvaccinated 7. Postoperative acute blood loss anemia, expected 8. Leukocytosis, expected Plan: 1. Continue aspirin, statin, Plavix, beta messi therapy. We will increase his beta messi as tolerated. 2. Continue amlodipine 2.5 mg by mouth daily at noon for radial artery spasm prophylaxis. 3. Encourage incentive spirometry use 10 times every hour while awake. Bronchodilators per pulmonology. 4. Increase activity, ambulate as tolerated. PT/OT/cardiac rehab following. 5. Will monitor daily labs and chest x-rays. Electrolyte replacement per protocol 6. GI/DVT prophylaxis. 7. Pain control with current medication regimen. 8. Insulin management per internal medicine. Patient needs tight blood sugar control to prevent infection and promote healing. 9. Atrial and ventricular epicardial pacemaker wires removed without incident. He will be on bed rest for 1 hour post pacemaker wire removal. 10. Lasix 20 mg IV 1 now. 11. Continue record strict inaccurate intake and output. May bladder scan and straight cath for greater than 300 mL residual. 12. Discharge planning is in place. Anticipate discharge home with home health care in the next 24-48 hours. 13. Importance of risk modification including smoking cessation has been discussed in detail with the patient. The patient reports that he has not smoked since February 2022 and has no plan on restarting smoking. 14. Continue to follow the results of the sputum culture. 15. More recommendations to follow based on patient's clinical course. Time with Patient: Greater than 30
[2022-05-18] MEDS: amLODIPine 2.5 MG TAB PO SCH (12:57)
[2022-05-18 15:08] LABS: Eosinophils # (M) 0.16 k/uL (0-0.7); Lymphocytes # (M) 2.65 k/uL (1.0-4.8); Monocytes # (M) 2.34 k/uL (0-1.0); Neutrophils # (M) 10.45 k/uL (1.3-7.7); Neutrophils % (M) 67 %; Nucleated Red Blood Cells 0 /100 WBC (0-0); Total Cells Counted 100
[2022-05-18 15:09] LABS: Poikilocytosis (M) Present; Polychromasia Present
--- NOTE | 2022-05-18 15:10 | P.PN ---
Subjective The patient is a 46-year-old male with past medical history of multivessel coronary artery disease, hypertension, significant smoking history, and u ncontrolled diabetes mellitus, who is currently admitted to the hospital after undergoing CABG [address] Sainz. He was successfully extubated and has been weaned from his pressors. It is postop day 1 and he was interviewed this morning sitting up comfortably in the recliner chair. He states he had some shortness of breath and chest pain with ambulation. 05/17 seen and examined. Patient denies any chest pain or pressure. Has a little bit of an appetite and has been tolerating food. No edema and no shortness of breath. His been on aspirin and Plavix without any hematochezia or melena. Blood pressure somewhat borderline with metoprolol 25 3 times a day. 05/18 Patient seen and examined. Patient states overall he is feeling fairly well. Denies any chest pain or pressure. Did have a fever up to 102.5 however white blood cell count still coming down to 15. No cough, no pain with urination. PHYSICAL EXAMINATION: This is a 46-year-old male in no apparent distress at the time of my examination. HEENT: Head is atraumatic, normocephalic. Pupils are equal, round. Sclerae an icteric. Conjunctivae are clear. Mucous membranes of the mouth are moist. Neck is supple. There is no jugular venous distention. No carotid bruit is heard. CHEST EXAMINATION: Lungs are diminished to auscultation. No chest wall tenderness is noted on palpation or with deep breathing. Sternal dressing in place. HEART EXAMINATION: Heart regular rate and rhythm. S1, S2 heard. No murmurs, gallops or rub. ABDOMEN: Soft, nontender. Bowel sounds are heard. No organomegaly noted. EXTREMITIES: 2+ peripheral pulses with no evidence of peripheral edema and no calf tenderness noted. NEUROLOGIC EXAMINATION: Patient is awake, alert and oriented x3. FINAL ASSESSMENT AND PLAN: Multivessel coronary artery disease Status post CABG 4 History of smoking History of hypertension History of diabetes mellitus Fever, leukocytosis, no obvious source of infection PLAN: Continue supportive treatment Appears to be slowly recovering. Monitor for any source of infection with leukocytosis and fever however currently appears to be doing well Further recommendations to be based on clinical course Objective - Vital Signs Vital signs: Vital Signs Temp 98.1 F 05/18/22 12:00 Pulse 90 05/18/22 12:16 Resp 16 05/18/22 12:00 BP 92/57 05/18/22 12:00 Pulse Ox 100 05/18/22 12:00 FiO2 50 05/14/22 17:56 Intake & Output 05/17/22 05/18/22 05/18/22 18:59 06:59 18:59 Intake Total 60 Output Total 450 2000 800 Balance -450 -1999 -740 Weight 75.6 kg Intake: Oral 60 Output: Drainage 0 Medial 0 Urine 450 1750 800 Post Void Residual 250 Other: Voiding Method Urinal Urinal Urinal ABP, PAP, CO, CI - Last Documented Arterial Blood Pressure 138/128 Pulmonary Artery Pressure 21/6 Cardiac Output 7.7 Cardiac Index 4.3 - Labs CBC & Chem 7: 05/18/22 07:49 05/18/22 07:49 Labs: Abnormal Lab Results - Last 24 Hours (Table) 05/17/22 05/17/22 05/18/22 Range/Units 16:39 20:14 06:18 WBC (3.8-10.6) k/uL RBC (4.30-5.90) m/uL Hgb (13.0-17.5) gm/dL Hct (39.0-53.0) % Neutrophils # (Manual) (1.3-7.7) k/uL Monocytes # (Manual) (0-1.0) k/uL Sodium (137-145) mmol/L BUN (9-20) mg/dL Glucose (74-99) mg/dL POC Glucose (mg/dL) 217 H 145 H 137 H (70-110) mg/dL Calcium (8.4-10.2) mg/dL AST (17-59) U/L Total Protein (6.3-8.2) g/dL Albumin (3.5-5.0) g/dL 05/18/22 05/18/22 05/18/22 Range/Units 07:15 07:49 07:49 WBC 15.6 H (3.8-10.6) k/uL RBC 2.34 L (4.30-5.90) m/uL Hgb 7.7 L (13.0-17.5) gm/dL Hct 22.2 L (39.0-53.0) % Neutrophils # (Manual) 10.45 H (1.3-7.7) k/uL Monocytes # (Manual) 2.34 H (0-1.0) k/uL Sodium 128 L (137-145) mmol/L BUN 25 H (9-20) mg/dL Glucose 173 H (74-99) mg/dL POC Glucose (mg/dL) 136 H (70-110) mg/dL Calcium 7.8 L (8.4-10.2) mg/dL AST 69 H (17-59) U/L Total Protein 5.1 L (6.3-8.2) g/dL Albumin 3.0 L (3.5-5.0) g/dL 05/18/22 Range/Units 12:07 WBC (3.8-10.6) k/uL RBC (4.30-5.90) m/uL Hgb (13.0-17.5) gm/dL Hct (39.0-53.0) % Neutrophils # (Manual) (1.3-7.7) k/uL Monocytes # (Manual) (0-1.0) k/uL Sodium (137-145) mmol/L BUN (9-20) mg/dL Glucose (74-99) mg/dL POC Glucose (mg/dL) 133 H (70-110) mg/dL Calcium (8.4-10.2) mg/dL AST (17-59) U/L Total Protein (6.3-8.2) g/dL Albumin (3.5-5.0) g/dL Microbiology - Last 24 Hours (Table) 05/15/22 20:05 Gram Stain - Final Sputum Sputum Culture - Final
--- NOTE | 2022-05-18 15:41 | P.PN ---
Subjective Progress Note Date: 05/18/22 This is a 46-year-old male patient with known history of triple-vessel coronary artery disease, previous non-ST segment elevation myocardial infarction oh underwent four-vessel bypass surgery. The patient arrived to the intensive care unit following the surgery. Immediately after the arrival, the patient was found to have some hypertension and shaking. He was not sick is a mechanical ventilator. Based on that, he started on propofol which is currently running at 50 and Precedex is running at 0.0 0.2 mcg/kg/h. He is most interested a mechanical ventilator. At this point in time he is exchanging his volumes and is on assist control at the rate of 24 with a tidal volume of 500 and FiO2 of 60% with PEEP of 10. The PEEP was increased as the patient was having excessive amount of output from the chest tubes that were inserted in the operating room. The patient currently has 1 mediastinal and one by 201 left pleural. Most of the output is from the pleural chest tube. Mediastinal output is also in order of 600 mL, urine output is in the order out 600 mL. Initial blood gas was poor and the necessity ventilator changes were done and we are awaiting the follow-up blood gases. His current cardiac rhythm is sinus. His pulmonary artery pressures of 25/12. Cardiac output is at 8.5 with an index of 4.7. Urine output is adequate in the order of 30-40 mL an hour. He is on IV fluids cu rrently running at 50 mL an hour of normal saline and he had 500 mL of albumin 5% postop. He is blood work at this point in time. The white cell count is at 29 and a hemoglobin of 12.1 and platelets of 221. Chest x-ray showing atelectatic changes in the right midlung and the left lower lobe area. He was admitted location. The patient is wondering if catheter which is an excellent location. 42 was also in good location. No airspace disease. No pneumothorax. Chest is at location. Insulin is currently at 2 units an hour On today's evaluation of 05/15/2022, the patient is calm and comfortable sitting up on a chair on room air oxygen. Noted the patient was extubated yesterday without any major difficulties. On today's evaluation, the patient is awake and alert and following commands and answering questions. He is using the incentive spirometer and his falling approximately 1000. He has excellent urine output and the order of 75 mL an hour. His cardiac output is at 7.7 with an index of 4.3. Pulmonary artery pressures of 27/6. The patient's cardiac rhythm is some mild sinus tachycardia. Otherwise, he is on insulin 5 units an hour for tight blood sugar control. He had a chest tubes in place and the B cell chest tube has drained approximately 750 and the right and left pleural chest tubes are connected and they are drained around 1000 since the patient arrived from the operating room. On today's blood work, the white cell count is 15.9 with a hemoglobin of 8.2 and a platelet count of 174, sodium is at 135, bicarbonate 26, potassium level III.8, BUN is 16 with a creatinine of 0.5. The chest x-ray from today shows postsurgical changes, atelectatic changes lung bases and the chest tubes are all in good location. No evidence of any pneumothorax. 05/16/2022, the patient is being seen for a follow-up. The patient is currently on 2 L of oxygen by nasal cannula. Chest is still in place, the mediastinal chest tube has put out approximately 7 to his over the past 12 hours and the pleural chest exit without approximately 80 mL over the past 12 hours. The patient is a hemoglobin of 8.0. BUN is at 70 with a creatinine of 0.6. Hemodynamically stable. Cardiac rhythm is sinus. Pain is under adequate control. Using incentive spirometer. Chest x-ray showing some atelectatic change in lung bases along with some mild pulmonary vascular congestion. The blood work from today shows a white cell count of 20 with a hemoglobin of 8 and a platelet count of 153. BUN is at 70 with a creatinine of 0.6.. 05/17/2022, patient is doing well and he is sitting up on a chair. There is on room air oxygen. All of the chest symptoms of removed. Cardiac rhythm is sinus. Using incentive spirometer and falling approximately 1000. He is on Levemir insulin 20 units daily. The WBC count at 17.8 with a hemoglobin 8.2 and a platelet count of 119. His sodium is at 128, BUN is at 30 with a creatinine of 0.8. The patient has been essentially doing well. No other significant events. He is ambulating. Sternal wound is dry clean and intact and the patient is having adequate pain control for now. On today's evaluation of 05/18/2022, the patient is doing extremely well. Using incentive spirometer. Pertinent more than 1500. The patient is feeling slig htly tired. Denies having any shortness of breath or chest pain. His cardiac rhythm is sinus. He had a temperature spike of 100.5. UA and sputum was sent. UA was negative and a sputum cultures still pending. Oxygen level is above 90% on room air oxygen. His WBC count of 15.6 with a hemoglobin of 7.7 and a platelet count of 275. Chest x-ray was reviewed. No evidence of any pneumonia. Chest tubes are removed. Epicardial wires are also removed. Based on this, the patient is stable. The patient will likely be discharged today. The patient was given Lasix 20 mg IV push times one by cardiothoracic surgery. Rest of the medications were all reviewed. He has no specific complaints for now. He is afebrile. Objective - Vital Signs Vital signs: Vital Signs Temp 98.1 F 05/18/22 12:00 Pulse 90 05/18/22 12:16 Resp 16 05/18/22 12:00 BP 92/57 05/18/22 12:00 Pulse Ox 100 05/18/22 12:00 FiO2 50 05/14/22 17:56 Intake & Output 05/17/22 05/18/22 05/18/22 18:59 06:59 18:59 Intake Total 60 Output Total 450 2000 800 Balance -450 -2000 -740 Weight 75.6 kg Intake: Oral 60 Output: Drainage 0 Medial 0 Urine 450 1750 800 Post Void Residual 250 Other: Voiding Method Urinal Urinal Urinal ABP, PAP, CO, CI - Last Documented Arterial Blood Pressure 138/128 Pulmonary Artery Pressure 21/6 Cardiac Output 7.7 Cardiac Index 4.3 - Exam CONSTITUTIONAL: Appears comfortable, cooperative, no acute distress RESPIRATORY: Lungs sounds essentially clear throughout, diminished bilaterally to his bases. Respirations are symmetrical, nonlabored. Currently on room air with oxygen saturation 93%. Able to achieve 1873-7160 mL on incentive spirometry. Strong productive cough. CARDIOVASCULAR: S1, S2 present. Regular rate and rhythm, sinus rhythm on telemetry with a heart rate of 94 BPM.. Sternum stable. Palpable peripheral pulses bilaterally. No edema present. No calf pain or tenderness noted. Heart hugger in place with patient demonstrating appropriate use. Antiembolism stockings, SCDs present. GASTROINTESTINAL: Abdomen soft, nontender, nondistended. Active bowel sounds present 4 quadrants. Tolerating minimal diet. Passing flatus. GENITOURINARY: Continues to void. 1650 mL of urine output the last 8 hours. INTEGUMENTARY: Skin is warm and dry with evidence of good perfusion. Midline sternal incision is well approximated and covered with dry intact dressing. Left radial artery harvest site as well as right lower extremity EVH site well approximated without redness or drainage. NEUROLOGIC: Cranial nerves II through XII intact. MUSKULOSKELETAL: Able to move all extremities, strength equal bilaterally. PSYCHIATRIC: Alert and oriented to person place and time, appropriate affect, intact judgment and insight. INVASIVE LINES AND TUBES: Atrial and Ventricular epicardial pacemaker wires in place and rounded. - Labs CBC & Chem 7: 05/18/22 07:49 05/18/22 07:49 Labs: Abnormal Lab Results - Last 24 Hours (Table) 05/17/22 05/17/22 05/18/22 Range/Units 16:39 20:14 06:18 WBC (3.8-10.6) k/uL RBC (4.30-5.90) m/uL Hgb (13.0-17.5) gm/dL Hct (39.0-53.0) % Neutrophils # (Manual) (1.3-7.7) k/uL Monocytes # (Manual) (0-1.0) k/uL Sodium (137-145) mmol/L BUN (9-20) mg/dL Glucose (74-99) mg/dL POC Glucose (mg/dL) 217 H 145 H 137 H (70-110) mg/dL Calcium (8.4-10.2) mg/dL AST (17-59) U/L Total Protein (6.3-8.2) g/dL Albumin (3.5-5.0) g/dL 05/18/22 05/18/22 05/18/22 Range/Units 07:15 07:49 07:49 WBC 15.6 H (3.8-10.6) k/uL RBC 2.34 L (4.30-5.90) m/uL Hgb 7.7 L (13.0-17.5) gm/dL Hct 22.2 L (39.0-53.0) % Neutrophils # (Manual) 10.45 H (1.3-7.7) k/uL Monocytes # (Manual) 2.34 H (0-1.0) k/uL Sodium 128 L (137-145) mmol/L BUN 25 H (9-20) mg/dL Glucose 173 H (74-99) mg/dL POC Glucose (mg/dL) 136 H (70-110) mg/dL Calcium 7.8 L (8.4-10.2) mg/dL AST 69 H (17-59) U/L Total Protein 5.1 L (6.3-8.2) g/dL Albumin 3.0 L (3.5-5.0) g/dL 05/18/22 Range/Units 12:07 WBC (3.8-10.6) k/uL RBC (4.30-5.90) m/uL Hgb (13.0-17.5) gm/dL Hct (39.0-53.0) % Neutrophils # (Manual) (1.3-7.7) k/uL Monocytes # (Manual) (0-1.0) k/uL Sodium (137-145) mmol/L BUN (9-20) mg/dL Glucose (74-99) mg/dL POC Glucose (mg/dL) 133 H (70-110) mg/dL Calcium (8.4-10.2) mg/dL AST (17-59) U/L Total Protein (6.3-8.2) g/dL Albumin (3.5-5.0) g/dL Microbiology - Last 24 Hours (Table) 05/15/22 20:05 Gram Stain - Final Sputum Sputum Culture - Final Assessment and Plan Plan: Symptomatic multivessel coronary artery disease and the patient underwent four- vessel bypass surgery, quadrant currently postop day #4 Patient is hemodynamically stable. Adequate cardiac output and index. Patient is currently on no pressors. Post thoracotomy, extubated without any major difficulties, chest tubes are removed and the patient is currently on room air oxygen Diabetes mellitus type 2 with a preoperative HbA1c of above 11, currently on Levemir insulin for blood sugar control Episodic fever, recovered Postsurgical anemia, anticipated outcome of surgery and the hemoglobin is stable Hypertension Hyperlipidemia History of smoking Recent history of non-ST segment elevation myocardial infarction Plan Continue using the incentive spirometer Patient is currently on room air oxygen Lasix was given Chest tubes removed Continue supportive care Continue aspirin and Plavix and metoprolol 25 mg twice a day Levemir insulin 20 units along with 5 units of NovoLog with meals and a sliding scale coverage Continue aspirin, Plavix, beta blockers with metoprolol 25 mg by mouth 3 times a day Support discharged to be followed up on outpatient basis
[2022-05-18 17:06] LABS: Glucose,Whole Blood 180 mg/dL (70-110)
--- NOTE | 2022-05-18 19:27 | P.PN ---
Progress Note - Text Progress Note Date: 05/18/22 Hospital course: I'm rounding for Dr. Quoc Sarkar Patient status post 4 vessel coronary bypass. 05/17/2022: Sitting up in a chair. Eating about 50%. On room air. Breathing stable. 05/18/2022: Up in a chair. Oral intake good. Breathing much better. Ambulated. Off oxygen. Active Medications Acetaminophen (Acetaminophen Tab 325 Mg Tab) 650 mg PO Q4HR PRN PRN Reason: Fever and/ or Pain Last Admin: 05/18/22 08:28 Dose: 650 mg Acetylcysteine (Acetylcysteine 800 Mg/4 Ml Vial) 200 mg INHALATION RT-TID [facility] Last Admin: 05/18/22 11:54 Dose: 200 mg Albuterol/Ipratropium (Ipratropium-Albuterol 3 Ml Neb) 3 ml INHALATION RT-Q2H PRN PRN Reason: Shortness Of Breath Or Wheezing Albuterol/Ipratropium (Ipratropium-Albuterol 3 Ml Neb) 3 ml INHALATION RT-QID [facility] Last Admin: 05/18/22 15:15 Dose: Not Given Amlodipine Besylate (Amlodipine 2.5 Mg Tab) 2.5 mg PO DAILY@1200 [facility] Last Admin: 05/18/22 12:57 Dose: 2.5 mg Aspirin (Aspirin 325 Mg Tab) 325 mg PO DAILY [facility] Last Admin: 05/18/22 08:28 Dose: 325 mg Atorvastatin Calcium (Atorvastatin 80 Mg Tab) 80 mg PO DAILY [facility] Last Admin: 05/18/22 08:29 Dose: 80 mg Bisacodyl (Bisacodyl 10 Mg Supp) 10 mg RECTAL DAILY PRN PRN Reason: Constipation Clopidogrel Bisulfate (Clopidogrel 75 Mg Tab) 75 mg PO DAILY [facility] Last Admin: 05/18/22 08:29 Dose: 75 mg Dextrose/Water (Dextrose 50% Syringe 50 Ml) 25 ml IVP PER PROTOCOL PRN; Protocol PRN Reason: Hypoglycemia Dextrose/Water (Dextrose 50% Syringe 50 Ml) 50 ml IVP PER PROTOCOL PRN; Protocol PRN Reason: Hypoglycemia Ferrous Sulfate (Ferrous Sulfate 325 Mg Tab) 325 mg PO BID-W/MEALS [facility] Last Admin: 05/18/22 17:23 Dose: 325 mg Heparin Sodium (Porcine) (Heparin Sodium,Porcine/Pf 5,000 Unit/0.5 Ml Syringe) 5,000 unit SQ Q8HR [facility] Last Admin: 05/18/22 17:22 Dose: 5,000 unit Amiodarone HCl 360 mg/ (Dextrose/Water) 207.2 mls @ 34.533 mls/hr IV .Q6H PRN; Protocol PRN Reason: A.FIB/FLUTTER Amiodarone HCl 150 mg/ (Dextrose/Water) 103 mls @ 618 mls/hr IV .Q10M PRN; Protocol PRN Reason: A.FIB/FLUTTER Amiodarone HCl 450 mg/ (Dextrose/Water) 250 mls @ 16.667 mls/hr IV .Q15H PRN; Protocol PRN Reason: A.FIB/FLUTTER Insulin Aspart (Insulin Aspart (Novolog) 100 Unit/Ml Vial) 5 unit SQ AC-TID [facility] Last Admin: 05/18/22 17:23 Dose: 5 unit Insulin Aspart (Insulin Aspart (Novolog) 100 Unit/Ml Vial) 0 unit SQ ACHS [facility]; Protocol Last Admin: 05/18/22 17:23 Dose: 3 unit Magnesium Hydroxide (Magnesium Hydroxide 2,400 Mg/10 Ml Cup) 2,400 mg PO BID PRN PRN Reason: Constipation Metoclopramide HCl (Metoclopramide 5 Mg/Ml 2 Ml Vial) 10 mg IVP Q4H PRN PRN Reason: Nausea And Vomiting Last Admin: 05/17/22 08:13 Dose: 10 mg Metoprolol Tartrate (Metoprolol Tartrate 25 Mg Tab) 25 mg PO BID [facility] Last Admin: 05/18/22 08:29 Dose: 25 mg Miscellaneous Information (Potassium Replacement Protocol 1 Each Misc) 1 each MISCELLANE DAILY PRN; Protocol PRN Reason: Per Protocol Miscellaneous Information (Magnesium Replacement Protocol 1 Each Misc) 1 each MISCELLANE DAILY PRN; Protocol PRN Reason: Per Protocol Miscellaneous Information (Magnesium Replacement Protocol 1 Each Misc) 1 each MISCELLANE DAILY PRN; Protocol PRN Reason: Per Protocol Ondansetron HCl (Ondansetron 4 Mg/2 Ml Vial) 4 mg IVP Q6HR PRN PRN Reason: Nausea And Vomiting Last Admin: 05/17/22 06:22 Dose: 4 mg Pantoprazole Sodium (Pantoprazole 40 Mg Tablet) 40 mg PO AC-BRKFST [facility] Last Admin: 05/18/22 07:01 Dose: 40 mg Senna/Docusate Sodium (Sennosides-Docusate Sodium 1 Each Tab) 2 each PO HS [facility] Last Admin: 05/17/22 20:23 Dose: 2 each Sodium Chloride (Sodium Chloride 0.9% Flush 10 Ml Syringe) 10 ml IV BID [facility] Last Admin: 05/18/22 12:57 Dose: 10 ml On examination: VITAL SIGNS:] 98.7, 99, 16, 94/59, 93% room air GENERAL APPEARANCE: Sitting up in a chair, eating, comfortable HEENT: Normal external appearance of nose and ear. Oral cavity normal EYES: Pupils equal. Conjunctiva normal. NECK: JVD not raised. Mass not palpable. RESPIRATORY: Respiratory effort normal. Lungs increased breath sounds CARDIOVASCULAR: First and second sounds normal. No edema. ABDOMEN: Soft. Liver and spleen not palpable. No tenderness. No mass palpable. PSYCHIATRY: Alert and oriented x3. Mood and affect normal. INVESTIGATIONS, reviewed in the clinical context: 05/18/2022: WBC 15.60 globin 7.7 platelets 275 progression 3.9 creatinine 0.75. Blood glucose this morning was 73 procalcitonin 0.28 White count 17.8 hemoglobin 8.2 platelets with 90 potassium 4.3 creatinine 0.86 sodium 128 Assessment and plan: -CABG 4. Left atrial appendage ligation. Aspirin, Lopressor -Diabetes mellitus type 2, chronically on insulin Change Levemir 26 units daily at bedtime. Follow sliding scale -Acute postprocedure blood loss anemia expected from surgery Ferrous sulfate -Essential hypertension Amlodipine, Lopressor -Hyperlipidemia Lipitor -CAD Aspirin Lopressor -Hyponatremia from decreased solute intake Encourage oral intake Discussed with patient. Change Levemir to 26 units daily at bedtime. Would hold off using Actos to the outpatient reviewed by PCP. Other medications to continue.
[2022-05-18 20:17] LABS: Glucose,Whole Blood 184 mg/dL (70-110)
[2022-05-18] MEDS: SENNOSIDES-DOCUSATE SODIUM 1 EACH TAB PO SCH (20:35)
[2022-05-18] MEDS ORDERED: INSULIN DETEMIR (LEVEMIR) 100 UNIT/ML SYR SQ SCH (23:00)
[2022-05-19] MEDS: FERROUS SULFATE 325 MG TAB PO SCH (06:35)
[2022-05-19] MEDS: PANTOPRAZOLE 40 MG TABLET PO SCH (06:35)
[2022-05-19] MEDS: INSULIN ASPART (NovoLOG) 100 UNIT/ML VIAL SQ SCH ×4 (07:04→12:45)
[2022-05-19 07:05] LABS: Glucose,Whole Blood 92 mg/dL (70-110)
[2022-05-19] MEDS: IPRATROPIUM-ALBUTEROL 3 ML NEB INHALATION SCH ×2 (08:20→11:59)
[2022-05-19] MEDS: ACETYLCYSTEINE 800 MG/4 ML VIAL INHALATION SCH (08:20)
--- NOTE | 2022-05-19 08:23 | XR ---
EXAMINATION TYPE: XR chest 2V DATE OF EXAM: 05/19/2022 COMPARISON: 05/18/2022 HISTORY: Post CABG TECHNIQUE: Frontal and lateral views of the chest are obtained. FINDINGS: The patient is status post CABG surgery. There is mild atelectasis in the left lung base which has improved in the interval. There is better a eration in the left lung compared to previous. There is a small right pleural effusion. Heart size normal and the pulmonary vasculature is not congested. There is no pneumothorax. The osseous structures are intact IMPRESSION: . IMPRESSION: 1. Status post CABG surgery. 2. Mild atelectasis left lung base which has improved compared to the prior study. 3. Interval development of a tiny right pleural effusion.
[2022-05-19 08:37] LABS: Glucose,Whole Blood 72 mg/dL (70-110)
[2022-05-19 09:02] LABS: Glucose,Whole Blood 98 mg/dL (70-110)
[2022-05-19 09:09] LABS: Glucose,Whole Blood 103 mg/dL (70-110)
[2022-05-19] MEDS: ATORVASTATIN 80 MG TAB PO SCH (09:28)
[2022-05-19] MEDS: CLOPIDOGREL 75 MG TAB PO SCH (09:28)
[2022-05-19] MEDS: HEPARIN SODIUM,PORCINE/PF 5,000 UNIT/0.5 ML SYRINGE SQ SCH (09:28)
[2022-05-19] MEDS: ASPIRIN 325 MG TAB PO SCH (09:28)
[2022-05-19] MEDS: METOPROLOL TARTRATE 25 MG TAB PO SCH (09:28)
[2022-05-19 09:31] LABS: Glucose,Whole Blood 115 mg/dL (70-110)
[2022-05-19 09:42] LABS: ALT 48 U/L (4-49); AST 60 U/L (17-59); African American GFR (CKD) >90 (>60 ml/min/1.73 sqM); Albumin 2.9 g/dL (3.5-5.0); Alkaline Phosphatase 62 U/L (38-126); Anion Gap 7 mmol/L; Blood Urea Nitrogen 20 mg/dL (9-20); Calcium 7.8 mg/dL (8.4-10.2); Carbon Dioxide 26 mmol/L (22-30); Chloride 99 mmol/L (98-107); Glucose 60 mg/dL (74-99); Non-African American GFR(CKD) >90 (>60 ml/min/1.73 sqM); Potassium 3.6 mmol/L (3.5-5.1); Sodium 132 mmol/L (137-145); Total Bilirubin 1.1 mg/dL (0.2-1.3); Total Protein 5.1 g/dL (6.3-8.2)
[2022-05-19 09:58] LABS: HCT 21.8 % (39.0-53.0); HGB 7.5 gm/dL (13.0-17.5); MCH 32.4 pg (25.0-35.0); MCHC 34.2 g/dL (31.0-37.0); MCV 94.8 fL (80.0-100.0); Mean Platelet Volume 8.1; Platelet Count 362 k/uL (150-450); RBC 2.31 m/uL (4.30-5.90); RDW 15.1 % (11.5-15.5); WBC 14.1 k/uL (3.8-10.6)
[2022-05-19] MEDS ORDERED: POTASSIUM CHLORIDE ER 20 MEQ TAB.ER PO SCH (10:00)
[2022-05-19 11:45] VITALS: BP 96/66; PULSE 94; RESP 17; TEMP 98.6
[2022-05-19] MEDS ORDERED: POTASSIUM CHLORIDE ER 10 MEQ TAB.ER.PRT PO STA (11:48)
[2022-05-19] MEDS ORDERED: FUROSEMIDE 10 MG/ML 2 ML VIAL IV ONE (11:48)
[2022-05-19 12:03] LABS: Glucose,Whole Blood 146 mg/dL (70-110)
--- NOTE | 2022-05-19 12:21 | P.DS ---
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 Triple-vessel coronary artery disease with recent non-STEMI, status post four-vessel CABG 2. History of hypertension 3. Poorly controlled insulin-dependent diabetes, preoperative hemoglobin A1c 9.6% 4. Previous tobacco dependence with recent cessation, preoperative FEV1 85% predicted 5. History of Splenectomy 6. Covid infection in summer 2021, remains unvaccinated 7. Postoperative acute blood loss anemia, expected 8. Leukocytosis, expected, trending down PRINCIPAL PROCEDURE: 1. Coronary artery bypass grafting 4 with left internal thoracic artery sequenced to the first diagonal coronary artery then the left anterior descending coronary artery, left radial artery on the aorta to the ramus intermedius coronary artery, and a reverse greater saphenous vein graft from the aorta to the proximal posterior descending coronary artery 2. Left atrial appendage ligation using a 35 mm Atriclip 3. Endoscopic harvesting of the left radial artery and the right greater saphenous vein 4. Graft flow measurements using the Theracosstim system 5. Intraoperative transesophageal echocardiogram performed by anesthesia HISTORY OF PRESENT ILLNESS: This is a 46-year-old gentleman who follows on an o utpatient basis with Dr. Quoc Sarkar for his primary care and with Dr. Herrmann for his cardiology care. On 03/22/2022 he presented to [facility] with complaints of chest pain which began while at work. The pain came with activity, as he occasionally lifts heavy objects at work. During his stay at [facility] he was ruled in for a non-ST elevated myocardial infarction. Subsequently, the due to his presenting symptoms and being ruled in for a non-ST elevated myocardial infarction he underwent coronary angiography which revealed severe three-vessel coronary artery disease. The patient also has a history of diabetes in which she has been noncompliant with taking his diabetic medications and had a hemoglobin A1c of 11.7. The patient also underwent a transthoracic 2-D echocardiogram which demonstrated an ejection fraction of 50% without any valvular abnormalities. For further evaluation the patient was referred to Dr. Micheal Sainz from cardiothoracic surgery for further evaluation and treatment recommendations. Dr. Sainz met with the patient in the office, discussed treatment options including myocardial revascularization surgery. Risks and benefits of myocardial revascularization surgery were discussed including the STS risk score, and knowing and understanding the risks the patient wished to proceed with the surgical option. Prior to surgery it was discussed about being more compliant with his diabetes and his most recent hemoglobin A1c preoperatively was 9.6%. The patient was subsequently scheduled for an elective coronary artery bypass grafting surgery. HOSPITAL COURSE: The patient was brought to the hospital on 05/14/2022, taken to the preoperative area, repaired in the usual fashion and subsequently taken to the operating room were Dr. Micheal Sainz performed an elective coronary artery bypass grafting 4 with left internal thoracic artery sequenced to the first diagonal coronary artery then the left anterior descending coronary artery, left radial artery on the aorta to the ramus intermedius coronary artery, and a reverse greater saphenous vein graft from the aorta to the proximal posterior descending coronary artery. Upon completion of the surgery the patient was transferred to the cardiovascular intensive care unit where he was recovered and monitored hemodynamically. He was extubated, all lines, tubes, supportive drips were discontinued when appropriate and he was subsequently transferred to the third floor cardiac stepdown unit for further monitoring and rehabilitation. His oxygen was titrated down, he continued to work with physical, occupational therapy, cardiac rehabilitation, he was tolerating an oral diet, his pain was well-controlled and he was ready to be discharged to home on postoperative day #5 with a [facility]. He has received written and verbal instructions regarding her medications, activity restrictions, signs and symptoms requiring physician notification and her follow-up appointments. Plan - Discharge Summary Discharge Rx Participant: Yes New Discharge Prescriptions: New Aspirin 325 mg PO DAILY #30 tab Ferrous Sulfate [Iron (65 MG Elemental)] 325 mg PO BID-W/MEALS #14 tab Metoprolol Tartrate [Lopressor] 25 mg PO BID #60 tab amLODIPine [Norvasc] 2.5 mg PO DAILY@1200 #30 tab Clopidogrel [Plavix] 75 mg PO DAILY #30 tab Pantoprazole [Protonix] 40 mg PO AC-BRKFST #30 tab Sennosides-Docusate Sodium [Senokot-S] 2 each PO HS #14 tab Acetaminophen Tab [Tylenol] 650 mg PO Q4HR PRN tab PRN Reason: Fever And/ Or Pain Continue Atorvastatin Calcium [Lipitor] 80 mg PO DAILY #30 tab Insulin Lispro [humaLOG Kwikpen] 5 unit SQ TID-W/MEALS Changed Insulin Glargine,Hum.rec.anlog [Lantus Solostar Pen] 26 units SQ HS #0 Discontinued Losartan Potassium [Cozaar] 25 mg PO DAILY@1200 Isosorbide Mononitrate ER [Imdur] 30 mg PO DAILY Pioglitazone HCl 15 mg PO DAILY Nitroglycerin Sl Tabs [Nitrostat] 0.4 mg SUBLINGUAL Q5M PRN PRN Reason: Chest Pain Metoprolol Tartrate [Lopressor] 50 mg PO BID Aspirin EC [Ecotrin Low Dose] 81 mg PO DAILY Discharge Medication List Insulin Lispro [humaLOG Kwikpen] 5 unit SQ TID-W/MEALS 04/03/22 [History] Insulin Glargine,Hum.rec.anlog [Lantus Solostar Pen] 26 units SQ HS #0 05/18/22 [Rx] Acetaminophen Tab [Tylenol] 650 mg PO Q4HR PRN tab 05/19/22 [Rx] Aspirin 325 mg PO DAILY #30 tab 05/19/22 [Rx] Atorvastatin Calcium [Lipitor] 80 mg PO DAILY #30 tab 05/19/22 [Rx] Clopidogrel [Plavix] 75 mg PO DAILY #30 tab 05/19/22 [Rx] Ferrous Sulfate [Iron (65 MG Elemental)] 325 mg PO BID-W/MEALS #14 tab 05/19/22 [Rx] Metoprolol Tartrate [Lopressor] 25 mg PO BID #60 tab 05/19/22 [Rx] Pantoprazole [Protonix] 40 mg PO AC-BRKFST #30 tab 05/19/22 [Rx] Sennosides-Docusate Sodium [Senokot-S] 2 each PO HS #14 tab 05/19/22 [Rx] amLODIPine [Norvasc] 2.5 mg PO DAILY@1200 #30 tab 05/19/22 [Rx] Follow up Appointment(s)/Referral(s): Oh Herrmann MD [STAFF PHYSICIAN] - 05/29/22 10:00 am Dianne Reina NPC [Nurse Practitioner] - 05/25/22 11:00 am (Please follow-up with Dianne at [address] [place] [address], [address], [place], [place], office number is [phone]) [facility],Cardiac [NON-STAFF] - 4 Weeks (You will receive a phone call in approximately 4-6 weeks for evaluation for cardiac rehab) [facility] [NON-STAFF] - ([facility] will call you to arrange a visit) Quoc Sarkar MD [Primary Care Provider] - 2 Weeks (Please call for appointment-office was closed for the holidays) Micheal Sainz MD [STAFF PHYSICIAN] - 06/15/22 12:00 pm Zeyad Westfall MD [STAFF PHYSICIAN] - 06/11/22 2:15 pm Ambulatory/Diagnostic Orders: Complete Blood Count w/diff [LAB.AMB] Time Frame: 05/22/22, Facility: [facility], Location: [facility] Comprehensive Metabolic Panel [LAB.AMB] Time Frame: 05/22/22, Facility: [facility], Location: [facility] Activity/Diet/Wound Care/Special Instructions: DISCHARGE INSTRUCTIONS: 1. No driving for 4 weeks, or until physician gives their ok. 2. The patient should sleep in their own bed, no medical bed needed. 3. Stairs are not an issue. If the bedroom is upstairs, it is advised that the patient go up at night and down in the morning for the first week. Go slowly, using handrail and take 1 step at a time. 4. CLARK hose are to be worn for 30 days post surgery or until physician discontinues. 5. Heart hugger is to be worn 100% of the time until physician discontinues.(except when showering) 6. No lifting, pushing, or pulling more than 10 pounds for 12 weeks. The physician will advise of any restriction changes. 7. The patient is expected to continue the prescribed walking program. 8. Continue pain control per as needed orders. 9. Continue with incentive spirometry and splinting/heart hugger until otherwise directed by the physician. 10. Must shower daily using liquid antibacterial soap 11. Routine sternal incision care. No powders, lotions, ointments on incisions. No dressings are necessary on incisions unless they are draining. Dermabond tape is to remain on sternal incision until surgeon follow-up. 12. Please call surgeon/SOUND RANGING CREWMEMBER for temp greater than 101 F or purulent drainage from incisions. 13. You should weigh yourself daily, record and bring log with you to follow up appointments. 14. All prescriptions given by surgeon for 30 days. Refills need to be filled through health administration teacher/primary care physician. 15. A Red armband has been placed on the patient. It should be worn for 30 days post discharge from surgery and will be removed by the cardiac surgeons. If an ER visit is necessary, please make sure the number on the Red armband is called before going to ER. 16. You have been referred to and are expected to begin Cardiac Rehab in approximately 4-6 weeks. HOME HEALTH SERVICES TO PROVIDE: RN SKILLED HOME CARE SERVICES FOR POST-OP SURGICAL PATIENTS WITH THE FOLLOWING: Coronary Artery Bypass Surgery (CABG), Mitral Valve Replacement/Repair ( MVR), Aortic Valve Replacement/Repair (AVR) RN TO CONTINUE EDUCATION FROM ``ROAD TO A HEALTH HEART PATIENT EDUCATION MANUAL (GIVEN TO PATIENT IN THE HOSPITAL) MEDICATION RECONCILIATION WITH EDUCATION NEEDED ON FIRST HOME VISIT EMPHASIZE IMPORTANCE OF WEARING BREAST SUPPORT/HEART HUGGER ENCOURAGE USE OF INCENTIVE SPIROMETER 10 X EVERY HOUR WHILE AWAKE ENCOURAGE UTILIZATION OF LOWER EXTREMITY COMPRESSION STOCKINGS/CLARK HOSE and ELEVATE LEGS ABOVE LEVEL OF HEART WHILE AT REST. ENCOURAGE AMBULATION 3-5x/day INCREASING TOLERATES, WHILE AVOIDING EXTREMES IN TEMPERATURE FREQUENCY: RN TO OPEN THE PATIENT WITHIN 24 HOURS OF DISCHARGE FROM THE HOSPITAL WITH [place]HEALTH [place]STALL[place] [facility] TO VISIT 2-3 X A WEEK FOR 4 WEEKS ESTABLISHED BY PATIENT NEEDS. LABORATORY: CBC, CMP TO BE DRAWN ON THE THIRD DAY HOME, (RAN STAT) FAX RESULTS TO [phone]. TELEHEALTH PARAMETERS: WEIGHT: NOTIFY MD OF WEIGHT GAIN OF 2 LBS IN 24 HOURS OR 5 LBS IN ONE WEEK HR: NOTIFY MD OF HR <55 BPM OR HR>100 BPM BP: NOTIFY MD IF BP <90/55 OR BP>140/100 O2 SAT: NOTIFY MD IF PO2<93% ON ROOM AIR SEND TELEHEALTH REPORT TO [employer] SENIOR SERGEANT AND CARDIOVASCULAR SURGEON THE FIRST WEEK OF CARE AND THEN BI-WEEKLY. PLEASE ADDITIONALLY COMMUNICATE ANY ABNORMALS AND NEW FINDINGS TO THE SURGEONS OFFICE. Discharge Disposition: HOME WITH HOME HEALTH SERVICES
[2022-05-19] MEDS: amLODIPine 2.5 MG TAB PO SCH (12:31)
--- NOTE | 2022-05-19 13:09 | P.PN ---
Subjective Progress Note Date: 05/19/22 This is a 46-year-old male patient with known history of triple-vessel coronary artery disease, previous non-ST segment elevation myocardial infarction oh underwent four-vessel bypass surgery. The patient arrived to the intensive care unit following the surgery. Immediately after the arrival, the patient was found to have some hypertension and shaking. He was not sick is a mechanical ventilator. Based on that, he started on propofol which is currently running at 50 and Precedex is running at 0.0 0.2 mcg/kg/h. He is most interested a mechanical ventilator. At this point in time he is exchanging his volumes and is on assist control at the rate of 24 with a tidal volume of 500 and FiO2 of 60% with PEEP of 10. The PEEP was increased as the patient was having excessive amount of output from the chest tubes that were inserted in the operating room. The patient currently has 1 mediastinal and one by 201 left pleural. Most of the output is from the pleural chest tube. Mediastinal output is also in order of 600 mL, urine output is in the order out 600 mL. Initial blood gas was poor and the necessity ventilator changes were done and we are awaiting the follow-up blood gases. His current cardiac rhythm is sinus. His pulmonary artery pressures of 25/12. Cardiac output is at 8.5 with an index of 4.7. Urine output is adequate in the order of 30-40 mL an hour. He is on IV fluids cu rrently running at 50 mL an hour of normal saline and he had 500 mL of albumin 5% postop. He is blood work at this point in time. The white cell count is at 29 and a hemoglobin of 12.1 and platelets of 221. Chest x-ray showing atelectatic changes in the right midlung and the left lower lobe area. He was admitted location. The patient is wondering if catheter which is an excellent location. 42 was also in good location. No airspace disease. No pneumothorax. Chest is at location. Insulin is currently at 2 units an hour On today's evaluation of 05/15/2022, the patient is calm and comfortable sitting up on a chair on room air oxygen. Noted the patient was extubated yesterday without any major difficulties. On today's evaluation, the patient is awake and alert and following commands and answering questions. He is using the incentive spirometer and his falling approximately 1000. He has excellent urine output and the order of 75 mL an hour. His cardiac output is at 7.7 with an index of 4.3. Pulmonary artery pressures of 27/6. The patient's cardiac rhythm is some mild sinus tachycardia. Otherwise, he is on insulin 5 units an hour for tight blood sugar control. He had a chest tubes in place and the B cell chest tube has drained approximately 750 and the right and left pleural chest tubes are connected and they are drained around 1000 since the patient arrived from the operating room. On today's blood work, the white cell count is 15.9 with a hemoglobin of 8.2 and a platelet count of 174, sodium is at 135, bicarbonate 26, potassium level III.8, BUN is 16 with a creatinine of 0.5. The chest x-ray from today shows postsurgical changes, atelectatic changes lung bases and the chest tubes are all in good location. No evidence of any pneumothorax. 05/16/2022, the patient is being seen for a follow-up. The patient is currently on 2 L of oxygen by nasal cannula. Chest is still in place, the mediastinal chest tube has put out approximately 7 to his over the past 12 hours and the pleural chest exit without approximately 80 mL over the past 12 hours. The patient is a hemoglobin of 8.0. BUN is at 70 with a creatinine of 0.6. Hemodynamically stable. Cardiac rhythm is sinus. Pain is under adequate control. Using incentive spirometer. Chest x-ray showing some atelectatic change in lung bases along with some mild pulmonary vascular congestion. The blood work from today shows a white cell count of 20 with a hemoglobin of 8 and a platelet count of 153. BUN is at 70 with a creatinine of 0.6.. 05/17/2022, patient is doing well and he is sitting up on a chair. There is on room air oxygen. All of the chest symptoms of removed. Cardiac rhythm is sinus. Using incentive spirometer and falling approximately 1000. He is on Levemir insulin 20 units daily. The WBC count at 17.8 with a hemoglobin 8.2 and a platelet count of 119. His sodium is at 128, BUN is at 30 with a creatinine of 0.8. The patient has been essentially doing well. No other significant events. He is ambulating. Sternal wound is dry clean and intact and the patient is having adequate pain control for now. On today's evaluation of 05/18/2022, the patient is doing extremely well. Using incentive spirometer. Pertinent more than 1500. The patient is feeling slig htly tired. Denies having any shortness of breath or chest pain. His cardiac rhythm is sinus. He had a temperature spike of 100.5. UA and sputum was sent. UA was negative and a sputum cultures still pending. Oxygen level is above 90% on room air oxygen. His WBC count of 15.6 with a hemoglobin of 7.7 and a platelet count of 275. Chest x-ray was reviewed. No evidence of any pneumonia. Chest tubes are removed. Epicardial wires are also removed. Based on this, the patient is stable. The patient will likely be discharged today. The patient was given Lasix 20 mg IV push times one by cardiothoracic surgery. Rest of the medications were all reviewed. He has no specific complaints for now. He is afebrile. On 05/19/2022, the patient is doing very well. No specific complaints. Amb ulating. Surgical one-sided dry clean and intact. Cardiac rhythm is sinus. All of the tubes are removed. He was given an additional dose of Lasix 20 mg IV push. Is afebrile for now.The morning blood sugar was 60. The patient was symptomatic. He was given orange juice. He will be discharged home back on his usual dose of Lantus insulin 26 units at bedtime in addition to a sliding scale coverage. Objective - Vital Signs Vital signs: Vital Signs Temp 98.6 F 05/19/22 11:44 Pulse 94 05/19/22 11:44 Resp 17 05/19/22 11:44 BP 96/66 05/19/22 11:44 Pulse Ox 95 05/19/22 11:44 FiO2 50 05/14/22 17:56 Intake & Output 05/18/22 05/19/22 05/19/22 18:59 06:59 18:59 Intake Total 60 236 Output Total 1350 600 Balance -1290 -600 236 Intake: Oral 60 236 Output: Drainage 0 Medial 0 Urine 1350 600 Other: Voiding Method Urinal Urinal Urinal ABP, PAP, CO, CI - Last Documented Arterial Blood Pressure 138/128 Pulmonary Artery Pressure 21/6 Cardiac Output 7.7 Cardiac Index 4.3 - Exam CONSTITUTIONAL: Appears comfortable, cooperative, no acute distress RESPIRATORY: Lungs sounds essentially clear throughout, diminished bilaterally to his bases. Respirations are symmetrical, nonlabored. Currently on room air with oxygen saturation 93%. Able to achieve 6227-0943 mL on incentive spirome try. Strong productive cough. CARDIOVASCULAR: S1, S2 present. Regular rate and rhythm, sinus rhythm on telemetry with a heart rate of 94 BPM.. Sternum stable. Palpable peripheral pulses bilaterally. No edema present. No calf pain or tenderness noted. Heart hugger in place with patient demonstrating appropriate use. Antiembolism stockings, SCDs present. GASTROINTESTINAL: Abdomen soft, nontender, nondistended. Active bowel sounds present 4 quadrants. Tolerating minimal diet. Passing flatus. GENITOURINARY: Continues to void. 1650 mL of urine output the last 8 hours. INTEGUMENTARY: Skin is warm and dry with evidence of good perfusion. Midline sternal incision is well approximated and covered with dry intact dressing. Left radial artery harvest site as well as right lower extremity EVH site well approximated without redness or drainage. NEUROLOGIC: Cranial nerves II through XII intact. MUSKULOSKELETAL: Able to move all extremities, strength equal bilaterally. PSYCHIATRIC: Alert and oriented to person place and time, appropriate affect, intact judgment and insight. INVASIVE LINES AND TUBES: Atrial and Ventricular epicardial pacemaker wires in place and rounded. - Labs CBC & Chem 7: 05/19/22 08:25 05/19/22 08:25 Labs: Abnormal Lab Results - Last 24 Hours (Table) 05/18/22 05/18/22 05/18/22 Range/Units 07:49 07:49 17:04 WBC (3.8-10.6) k/uL RBC (4.30-5.90) m/uL Hgb (13.0-17.5) gm/dL Hct (39.0-53.0) % Neutrophils # (Manual) 10.45 H (1.3-7.7) k/uL Monocytes # (Manual) 2.34 H (0-1.0) k/uL Sodium (137-145) mmol/L Creatinine (0.66-1.25) mg/dL Glucose (74-99) mg/dL POC Glucose (mg/dL) 180 H (70-110) mg/dL Calcium (8.4-10.2) mg/dL AST (17-59) U/L Total Protein (6.3-8.2) g/dL Albumin (3.5-5.0) g/dL Procalcitonin 0.28 H (0.02-0.09) ng/mL 05/18/22 05/19/22 05/19/22 Range/Units 20:15 08:25 08:25 WBC 14.1 H (3.8-10.6) k/uL RBC 2.31 L (4.30-5.90) m/uL Hgb 7.5 L (13.0-17.5) gm/dL Hct 21.8 L (39.0-53.0) % Neutrophils # (Manual) (1.3-7.7) k/uL Monocytes # (Manual) (0-1.0) k/uL Sodium 132 L (137-145) mmol/L Creatinine 0.65 L (0.66-1.25) mg/dL Glucose 60 L (74-99) mg/dL POC Glucose (mg/dL) 184 H (70-110) mg/dL Calcium 7.8 L (8.4-10.2) mg/dL AST 60 H (17-59) U/L Total Protein 5.1 L (6.3-8.2) g/dL Albumin 2.9 L (3.5-5.0) g/dL Procalcitonin (0.02-0.09) ng/mL 05/19/22 05/19/22 Range/Units 09:30 12:02 WBC (3.8-10.6) k/uL RBC (4.30-5.90) m/uL Hgb (13.0-17.5) gm/dL Hct (39.0-53.0) % Neutrophils # (Manual) (1.3-7.7) k/uL Monocytes # (Manual) (0-1.0) k/uL Sodium (137-145) mmol/L Creatinine (0.66-1.25) mg/dL Glucose (74-99) mg/dL POC Glucose (mg/dL) 115 H 146 H (70-110) mg/dL Calcium (8.4-10.2) mg/dL AST (17-59) U/L Total Protein (6.3-8.2) g/dL Albumin (3.5-5.0) g/dL Procalcitonin (0.02-0.09) ng/mL Assessment and Plan Plan: Symptomatic multivessel coronary artery disease and the patient underwent four- vessel bypass surgery, quadrant currently postop day #4 Patient is hemodynamically stable. Adequate cardiac output and index. Patient is currently on no pressors. Post thoracotomy, extubated without any major difficulties, chest tubes are removed and the patient is currently on room air oxygen Diabetes mellitus type 2 with a preoperative HbA1c of above 11, currently on Levemir insulin for blood sugar control Episodic fever, recovered Postsurgical anemia, anticipated outcome of surgery and the hemoglobin is stable Hypertension Hyperlipidemia History of smoking Recent history of non-ST segment elevation myocardial infarction Plan Continue using the incentive spirometer Patient is currently on room air oxygen Lasix 20 mg IV 1 Potassium replaced Chest tubes removed Continue supportive care Continue aspirin and Plavix and metoprolol 25 mg twice a day Lantus insulin time of discharge Continue aspirin, Plavix, beta blockers with metoprolol 25 mg by mouth 3 times a day Discharge home today. We will continue using the incentive spirometer is on room air oxygen.
--- NOTE | 2022-05-19 17:13 | P.PN ---
Progress Note - Text Progress Note Date: 05/19/22 Hospital course: I'm rounding for Dr. Quoc Sarkar Patient status post 4 vessel coronary bypass. 05/17/2022: Sitting up in a chair. Eating about 50%. On room air. Breathing stable. 05/18/2022: Up in a chair. Oral intake good. Breathing much better. Ambulated. Off oxygen. 05/19/2022: Doing well. Oral intake good. Insulin discussed with the patient. Actos has been discontinued. We'll keep a log of Accu-Cheks and follow with PCP. I'm writing. Current medications reviewed On examination: VITAL SIGNS:] 98.6, 94, 17, 96% on 6, 95% room air GENERAL APPEARANCE: Sitting up comfortable HEENT: Normal external appearance of nose and ear. Oral cavity normal EYES: Pupils equal. Conjunctiva normal. NECK: JVD not raised. Mass not palpable. RESPIRATORY: Respiratory effort normal. Lungs increased breath sounds CARDIOVASCULAR: First and second sounds normal. No edema. ABDOMEN: Soft. Liver and spleen not palpable. No tenderness. No mass palpable. PSYCHIATRY: Alert and oriented x3. Mood and affect normal. INVESTIGATIONS, reviewed in the clinical context: 05/18/2022: WBC 15.60 globin 7.7 platelets 275 progression 3.9 creatinine 0.75. Blood glucose this morning was 73 procalcitonin 0.28 White count 17.8 hemoglobin 8.2 platelets with 90 potassium 4.3 creatinine 0.86 sodium 128 Assessment and plan: -CABG 4. Left atrial appendage ligation. Aspirin, Lopressor -Diabetes mellitus type 2, chronically on insulin Levemir 26 units daily at bedtime. NovoLog 5 units with meals. Stop Actos. Follow sliding scale -Acute postprocedure blood loss anemia expected from surgery Ferrous sulfate -Essential hypertension Amlodipine, Lopressor -Hyperlipidemia Lipitor -CAD Aspirin Lopressor -Hyponatremia from decreased solute intake Encourage oral intake Insulin discussed with the patient. Other medication is discussed. Follow-up with PCP.
== END 2022-05-19 14:13 | disposition home health service (06) | DRG 236 ==
LOC: 2ORMAIN 05:35 → 2SICU 13:52 → 3SCARD 05-17 15:07
PROVIDERS: ADMIT Thoracic Surgery (Cardiothoracic Vascular Surgery); ATTEND Thoracic Surgery (Cardiothoracic Vascular Surgery)
PROC: 03BY4ZZ Excision of Upper Artery, Percutaneous Endoscopic Approach (ICD-10-PCS; 2022-05-14)
PROC: 03BC4ZZ Excision of Left Radial Artery, Percutaneous Endoscopic Approach (ICD-10-PCS; 2022-05-14)
PROC: 4A0305C Measurement of Arterial Flow, Coronary, Open Approach (ICD-10-PCS; 2022-05-14)
PROC: 02L70CK Occlusion of Left Atrial Appendage with Extraluminal Device, Open Approach (ICD-10-PCS; 2022-05-14)
PROC: 5A1221Z Performance of Cardiac Output, Continuous (ICD-10-PCS; 2022-05-14)
PROC: 0D9670Z Drainage of Stomach with Drainage Device, Via Natural or Artificial Opening (ICD-10-PCS; 2022-05-14)
PROC: 02100AW Bypass Coronary Artery, One Artery from Aorta with Autologous Arterial Tissue, Open Approach (ICD-10-PCS; principal; 2022-05-14 08:00)
PROC: 021009W Bypass Coronary Artery, One Artery from Aorta with Autologous Venous Tissue, Open Approach (ICD-10-PCS; 2022-05-14 08:00)
PROC: 02110ZC Bypass Coronary Artery, Two Arteries from Thoracic Artery, Open Approach (ICD-10-PCS; 2022-05-14 08:00)
PROC: 06BP4ZZ Excision of Right Saphenous Vein, Percutaneous Endoscopic Approach (ICD-10-PCS; 2022-05-14 08:00)
DX: I25.10 Atherosclerotic heart disease of native coronary artery without angina pectoris (principal); I48.92 Unspecified atrial flutter; E87.1 Hypo-osmolality and hyponatremia; D62 Acute posthemorrhagic anemia; J98.11 Atelectasis; E11.65 Type 2 diabetes mellitus with hyperglycemia; I10 Essential (primary) hypertension; D72.829 Elevated white blood cell count, unspecified; E78.5 Hyperlipidemia, unspecified; I48.91 Unspecified atrial fibrillation; T38.3X6A Underdosing of insulin and oral hypoglycemic [antidiabetic] drugs, initial encounter; Z90.81 Acquired absence of spleen; Z87.891 Personal history of nicotine dependence; Z86.16 Personal history of COVID-19; Z28.310 Unvaccinated for COVID-19; Z79.899 Other long term (current) drug therapy; Z82.49 Family history of ischemic heart disease and other diseases of the circulatory system; Z79.4 Long term (current) use of insulin; Z79.82 Long term (current) use of aspirin; Z79.84 Long term (current) use of oral hypoglycemic drugs; I25.2 Old myocardial infarction; R00.0 Tachycardia, unspecified; Z79.02 Long term (current) use of antithrombotics/antiplatelets
CPT/HCPCS: 71045; 71046; 80053; 81003; 82330; 82805; 83036; 83735; 84145; 85025; 85027; 85384; 85520; 85610; 85730; 86850; 86891; 86900; 86901; 86920; 87070; 87205; 94002; 94640; 94760

== ENCOUNTER → 2022-06-06 | Outpatient (CLI) | payer BC ==
--- NOTE | 2022-06-06 18:06 | XR ---
EXAMINATION TYPE: XR chest 2V DATE OF EXAM: 06/06/2022 COMPARISON: 05/19/2022 INDICATION: Short of breath TECHNIQUE: Frontal and lateral views of the chest are obtained. FINDINGS: The heart size is normal. The pulmonary vasculature is normal. There is a small to moderate left pleural effusion. Minimal right pleural effusion is present. Sterno dawna wires are present from prior CABG.. IMPRESSION: 1. Small to moderate left pleural effusion with a minimal right pleural effusion.
== END | disposition home or self-care (01) ==
LOC: RADXRMAIN 16:49
PROVIDERS: ATTEND Family Medicine
DX: R06.9 Unspecified abnormalities of breathing (principal); J90 Pleural effusion, not elsewhere classified
CPT/HCPCS: 71046

== ENCOUNTER → 2022-06-14 | Outpatient (CLI) | payer BC ==
--- NOTE | 2022-06-15 04:07 | XR ---
EXAMINATION TYPE: XR chest 2V DATE OF EXAM: 06/14/2022 COMPARISON: Chest x-ray AP single HISTORY: Recent open heart surgery. Solitary pulmonary nodule. TECHNIQUE: Frontal and lateral views of the chest are obtained. FINDINGS: Overlying sternal wires along with mediastinal clips and left atrial appendage. All redemo nstrated. Small left pleural effusion improved from most recent prior. Resolved small to tiny right p leural effusion noted.. The cardiac silhouette size is stable and upper limits of normal. The osse ous structures are intact. IMPRESSION: Small left pleural effusion improved from prior.
== END | disposition home or self-care (01) ==
LOC: RADXRMAIN 16:30
PROVIDERS: ATTEND Nurse Practitioner Acute Care
DX: J90 Pleural effusion, not elsewhere classified (principal); Z95.1 Presence of aortocoronary bypass graft
CPT/HCPCS: 71046

== ENCOUNTER 2022-06-16 12:40 | Emergency (ER) | payer BC ==
[2022-06-16 12:50] VITALS: RESP 18
[2022-06-16] MEDS ORDERED: ACETAMINOPHEN TAB 500 MG TAB PO STA (13:23)
--- NOTE | 2022-06-16 14:01 | XR ---
EXAMINATION TYPE: XR chest 2V DATE OF EXAM: 06/16/2022 COMPARISON: 06/14/2022 HISTORY: 46-year-old male fever and shortness of breath TECHNIQUE: AP and lateral views FINDINGS: Median sternotomy wires are present with post-CABG clips. Heart borderline in size. Interstitial/vasc ular prominence. Trace left pleural effusion with some left basilar opacity adjacent. IMPRESSION: Correlate for the development of CHF with mild pulmonary vascular congestion. Continued trace left pl eural effusion with adjacent atelectasis and/or consolidation.
[2022-06-16] MEDS ORDERED: IBUPROFEN 600 MG TAB PO STA (14:35)
[2022-06-16 15:31] VITALS: TEMP 102.6
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
[2022-06-16 15:40] VITALS: BP 122/84; PULSE 115
== END 2022-06-16 15:49 | disposition home or self-care (01) ==
LOC: EC 12:40
DX: J10.1 Influenza due to other identified influenza virus with other respiratory manifestations (principal); I10 Essential (primary) hypertension; I25.10 Atherosclerotic heart disease of native coronary artery without angina pectoris; E11.9 Type 2 diabetes mellitus without complications; Z87.891 Personal history of nicotine dependence; Z79.4 Long term (current) use of insulin; Z20.822 Contact with and (suspected) exposure to COVID-19
CPT/HCPCS: 71046; 87636; 99284

== ENCOUNTER 2022-12-14 17:01 | Emergency (ER) | payer BC ==
[2022-12-14 17:26] VITALS: RESP 20
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
[2022-12-14 18:52] LABS: Basophils # (A) 0.1 k/uL (0-0.2); Basophils % (A) 1 %; Eosinophils # (A) 0.5 k/uL (0-0.7); Eosinophils % (A) 6 %; HCT 48.5 % (39.0-53.0); Lymphocytes # (A) 3.5 k/uL (1.0-4.8); Lymphocytes % (A) 37 %; MCH 31.3 pg (25.0-35.0); MCV 94.8 fL (80.0-100.0); Mean Platelet Volume 7.1; Monocytes # (A) 0.8 k/uL (0-1.0); Monocytes % (A) 8 %; Neutrophils # (A) 4.1 k/uL (1.3-7.7); Neutrophils % (A) 45 %; Platelet Count 385 k/uL (150-450); RBC 5.11 m/uL (4.30-5.90); RDW 12.6 % (11.5-15.5); WBC 9.3 k/uL (3.8-10.6)
[2022-12-14 19:01] LABS: ALT 42 U/L (4-49); AST 32 U/L (17-59); African American GFR (CKD) >90 (>60 ml/min/1.73 sqM); Albumin 4.1 g/dL (3.5-5.0); Alkaline Phosphatase 100 U/L (38-126); Anion Gap 9 mmol/L; Blood Urea Nitrogen 16 mg/dL (9-20); Calcium 9.2 mg/dL (8.4-10.2); Carbon Dioxide 26 mmol/L (22-30); Chloride 100 mmol/L (98-107); Glucose 275 mg/dL (74-99); Magnesium 1.9 mg/dL (1.6-2.3); Non-African American GFR(CKD) >90 (>60 ml/min/1.73 sqM); Potassium 4.3 mmol/L (3.5-5.1); Sodium 135 mmol/L (137-145); Total Bilirubin 1.1 mg/dL (0.2-1.3); Total Protein 7.1 g/dL (6.3-8.2)
[2022-12-14 19:07] LABS: INR 0.9 (<1.2); Partial Thromboplastin Time 23.3 sec (22.0-30.0); Prothrombin Time 10.1 sec (9.0-12.0)
--- NOTE | 2022-12-14 19:10 | XR ---
EXAMINATION TYPE: XR chest 2V DATE OF EXAM: 12/14/2022 6:48 PM COMPARISON: Chest radiographs from 06/16/2022 TECHNIQUE: XR chest 2V Frontal and lateral views of the chest. CLINICAL INDICATION:Male, 47 years old with history of Chest Pain; FINDINGS: Lungs/Pleura: There is no evidence of pleural effusion, focal consolidation, or pneumothorax. Pulmonary vascularity: Unremarkable. Heart/mediastinum: Cardiomediastinal silhouette is unremarkable. Left atrial appendage occlusion dennis ce is present. Musculoskeletal: No acute osseous pathology. Midline sternotomy wires are noted. IMPRESSION: No acute cardiopulmonary disease/process.
[2022-12-14 19:40] VITALS: BP 131/91; PULSE 77; TEMP 98
== END 2022-12-14 19:40 | disposition home or self-care (01) ==
LOC: EC 17:01
DX: S29.011A Strain of muscle and tendon of front wall of thorax, initial encounter (principal); I25.10 Atherosclerotic heart disease of native coronary artery without angina pectoris; I10 Essential (primary) hypertension; E11.9 Type 2 diabetes mellitus without complications; Z87.891 Personal history of nicotine dependence; Z79.4 Long term (current) use of insulin; X50.9XXA Other and unspecified overexertion or strenuous movements or postures, initial encounter; Y99.0 Civilian activity done for income or pay
CPT/HCPCS: 36415; 71046; 80053; 83735; 84484; 85025; 85610; 85730; 93005; 99284

== ENCOUNTER 2023-04-12 02:04 | Emergency (ER) | payer OTHER, BC ==
[2023-04-12 02:44] VITALS: RESP 18
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
[2023-04-12 06:48] VITALS: BP 172/87; PULSE 103; TEMP 98.9
--- NOTE | 2023-04-12 07:26 | XR ---
EXAMINATION TYPE: XR elbow complete RT DATE OF EXAM: 04/12/2023 CLINICAL HISTORY: pain TECHNIQUE: Frontal, lateral and oblique images of the right elbow are obtained. COMPARISON: None. FINDINGS: There is no acute fracture/dislocation evident of the elbow. No abnormal fat pad signs ar e seen. The overlying soft tissue appears unremarkable. IMPRESSION: There is no acute fracture or dislocation of the elbow. ICD 10 NO FRACTURE, INITIAL EVALUATION
== END 2023-04-12 06:41 | disposition home or self-care (01) ==
LOC: EC 02:04
DX: M77.9 Enthesopathy, unspecified (principal); M25.521 Pain in right elbow; I25.10 Atherosclerotic heart disease of native coronary artery without angina pectoris; E11.9 Type 2 diabetes mellitus without complications; I10 Essential (primary) hypertension; Z87.891 Personal history of nicotine dependence; Z79.4 Long term (current) use of insulin
CPT/HCPCS: 99283

== ENCOUNTER 2023-07-09 11:51 | Emergency (ER) | payer BC, OTHER ==
[2023-07-09 13:01] VITALS: RESP 18
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
[2023-07-09 14:34] VITALS: BP 128/68; PULSE 90; TEMP 98.1
== END 2023-07-09 17:28 | disposition home or self-care (01) ==
LOC: EC 11:51
DX: L02.214 Cutaneous abscess of groin (principal); I10 Essential (primary) hypertension; E11.9 Type 2 diabetes mellitus without complications; I25.10 Atherosclerotic heart disease of native coronary artery without angina pectoris; Z79.4 Long term (current) use of insulin; Z79.891 Long term (current) use of opiate analgesic
CPT/HCPCS: 87070; 87205; 99283

== ENCOUNTER 2023-11-22 20:27 | Emergency (ER) | payer OTHER ==
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
[2023-11-22 21:11] VITALS: BP 162/106; PULSE 93; RESP 18; TEMP 97.5
== END 2023-11-22 21:43 | disposition home or self-care (01) ==
LOC: EC 20:27
DX: R07.89 Other chest pain (principal); Z95.1 Presence of aortocoronary bypass graft; Z87.891 Personal history of nicotine dependence
CPT/HCPCS: 93005; 99284

== ENCOUNTER 2024-04-14 15:24 | Emergency (ER) | payer OTHER ==
[2024-04-14 15:46] VITALS: TEMP 98.7
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
--- NOTE | 2024-04-14 17:00 | XR ---
EXAMINATION TYPE: XR Hip Complete LT DATE OF EXAM: 04/14/2024 4:54 PM CLINICAL INDICATION: Male, 48 years old with history of pain; COMPARISON: None. TECHNIQUE: XR Hip Complete LT; hip was examined in the frontal and lateral projections FINDINGS: No evidence for acute process, joint dislocation or significant soft tissue swelling. Osteo phyte formation of the superior acetabulum of the hip. There is mild joint space narrowing. IMPRESSION: 1. No evidence for acute process. 2. Mild hip osteoarthrosis. [facility], , 04/14/2024 4:58 PM
[2024-04-14 17:16] VITALS: BP 139/90; PULSE 87; RESP 18
== END 2024-04-14 17:15 | disposition home or self-care (01) ==
LOC: EC 15:24
CPT/HCPCS: 73502; 99284

== ENCOUNTER 2024-06-02 14:11 | Emergency (ER) | payer OTHER ==
[2024-06-02 14:18] VITALS: BP 154/102; PULSE 106; RESP 20; TEMP 98.4
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
--- NOTE | 2024-06-02 16:18 | XR ---
EXAMINATION TYPE: XR chest 2V DATE OF EXAM: 06/02/2024 3:01 PM COMPARISON: 12/14/2022 CLINICAL INDICATION: Male, 48 years old with history of Cough, TECHNIQUE: XR chest 2V view(s) obtained. FINDINGS: The heart size is normal. The pulmonary vasculature is normal. The lungs are clear. Sternotomy wires are present IMPRESSION: 1. No acute pulmonary process. [facility], , 06/02/2024 4:15 PM
== END 2024-06-02 19:27 | disposition home or self-care (01) ==
LOC: EC 14:11
DX: J21.0 Acute bronchiolitis due to respiratory syncytial virus (principal); Z87.891 Personal history of nicotine dependence
CPT/HCPCS: 71046; 87636; 87651; 99283

== ENCOUNTER 2024-08-19 18:39 | Emergency (ER) | payer OTHER ==
[2024-08-19 19:18] VITALS: RESP 18
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
--- NOTE | 2024-08-19 20:34 | XR ---
EXAMINATION TYPE: XR shoulder complete RT DATE OF EXAM: 08/19/2024 8:30 PM COMPARISON: None. CLINICAL INDICATION: Male, 49 years old with history of Pain, pain TECHNIQUE: Three views of the right shoulder are obtained. FINDINGS: There is no acute fracture/dislocation evident in the right shoulder. The acromioclavicu lar and glenohumeral joint spaces appear within normal limits. The visualized ribs are intact and un remarkable. Overlying sternal wires are partially imaged. IMPRESSION: As above. [facility], , 08/19/2024 8:32 PM
[2024-08-19 21:47] VITALS: BP 129/84; PULSE 83; TEMP 97.9
== END 2024-08-19 21:45 | disposition home or self-care (01) ==
LOC: EC 18:39
DX: S46.911A Strain of unspecified muscle, fascia and tendon at shoulder and upper arm level, right arm, initial encounter (principal); Z87.891 Personal history of nicotine dependence; X50.1XXA Overexertion from prolonged static or awkward postures, initial encounter; Y99.0 Civilian activity done for income or pay
CPT/HCPCS: 99283

== ENCOUNTER 2024-09-04 16:46 | Emergency (ER) | payer OTHER ==
[2024-09-04 17:20] VITALS: RESP 18; TEMP 98.1
[2024-09-04] MEDS: predniSONE 20 MG TAB PO STA (18:01)
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
[2024-09-04] MEDS: FAMOTIDINE 20 MG TAB PO STA (18:02)
[2024-09-04] MEDS: diphenhydrAMINE 50 MG CAP PO STA (18:02)
[2024-09-04 18:29] VITALS: BP 122/85; PULSE 89
== END 2024-09-04 18:29 | disposition home or self-care (01) ==
LOC: EC 16:46
DX: R21 Rash and other nonspecific skin eruption (principal); T43.615A Adverse effect of caffeine, initial encounter
CPT/HCPCS: 99282; J7512

== ENCOUNTER 2024-09-06 12:16 | Emergency (ER) | payer OTHER ==
[2024-09-06 12:22] VITALS: TEMP 98.1
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
[2024-09-06 13:40] VITALS: RESP 18
[2024-09-06 13:50] LABS: Partial Thromboplastin Time 21.9 sec (22.0-30.0); Prothrombin Time 10.7 sec (10.0-12.5)
[2024-09-06 13:53] LABS: African American GFR (CKD) >90 (>60 ml/min/1.73 sqM); Anion Gap 13 mmol/L; Blood Urea Nitrogen 16 mg/dL (9-20); Calcium 9.7 mg/dL (8.4-10.2); Carbon Dioxide 22 mmol/L (22-30); Chloride 101 mmol/L (98-107); Glucose 210 mg/dL (74-99); Non-African American GFR(CKD) >90 (>60 ml/min/1.73 sqM); Potassium 4.7 mmol/L (3.5-5.1); Sodium 136 mmol/L (137-145)
[2024-09-06 13:54] LABS: Basophils % (A) 1 %; Eosinophils # (A) 1.3 k/uL (0-0.7); Eosinophils % (A) 20 %; HCT 50.3 % (39.0-53.0); HGB 16.5 gm/dL (13.0-17.5); Lymphocytes # (A) 2.1 k/uL (1.0-4.8); Lymphocytes % (A) 30 %; MCH 31.2 pg (25.0-35.0); MCHC 32.9 g/dL (31.0-37.0); MCV 94.9 fL (80.0-100.0); Mean Platelet Volume 8.3; Monocytes # (A) 0.6 k/uL (0-1.0); Monocytes % (A) 9 %; Neutrophils # (A) 2.6 k/uL (1.3-7.7); Neutrophils % (A) 38 %; Platelet Count 440 k/uL (150-450); RDW 12.9 % (11.5-15.5); WBC 6.9 k/uL (3.8-10.6)
[2024-09-06] MEDS: DEXAMETHASONE SOD PHOSPHATE 10 MG/ML 1 ML VIAL IM STA (14:01)
[2024-09-06 14:32] VITALS: BP 128/87; PULSE 89
== END 2024-09-06 14:31 | disposition home or self-care (01) ==
LOC: EC 12:16
DX: L30.9 Dermatitis, unspecified (principal); Z87.891 Personal history of nicotine dependence
CPT/HCPCS: 36415; 80048; 85025; 85610; 85730; 99283; 96372; J1100

== ENCOUNTER 2024-09-25 23:15 | Emergency (ER) | payer OTHER ==
[2024-09-25 23:32] VITALS: RESP 18
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
[2024-09-26] MEDS: CIPROFLOXACIN 0.3% OPHTH SOLN 5 ML BTL BOTH EYES STA (01:20)
[2024-09-26 01:29] VITALS: BP 137/98; PULSE 99; TEMP 98.6
== END 2024-09-26 01:29 | disposition home or self-care (01) ==
LOC: EC 23:15
DX: H10.9 Unspecified conjunctivitis (principal); Z87.891 Personal history of nicotine dependence; Z88.6 Allergy status to analgesic agent
CPT/HCPCS: 99283

== ENCOUNTER 2024-10-30 20:01 | Emergency (ER) | payer OTHER ==
[2024-10-30 20:06] VITALS: RESP 18; TEMP 97.8
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
--- NOTE | 2024-10-30 20:47 | XR ---
EXAMINATION TYPE: XR humerus RT DATE OF EXAM: 10/30/2024 8:40 PM COMPARISON: Previous right shoulder radiograph 08/19/2024. CLINICAL INDICATION: Male, 49 years old with history of fall, pain; PHH, pain TECHNIQUE: XR humerus RT examined in frontal and lateral projections. FINDINGS: No acute fracture or dislocation. Mild degenerative osteoarthritic changes of the right mary ulder. Enthesophyte formation along the olecranon and the partially visualized right elbow. Moderate acromioclavicular degenerative osteoarthritis. IMPRESSION: No acute osseous pathology. [facility], , 10/30/2024 8:45 PM
[2024-10-30] MEDS: ACETAMINOPHEN TAB 500 MG TAB PO STA (20:55)
[2024-10-30 21:12] VITALS: BP 147/102; PULSE 98
== END 2024-10-30 21:12 | disposition home or self-care (01) ==
LOC: EC 20:01
DX: S46.911A Strain of unspecified muscle, fascia and tendon at shoulder and upper arm level, right arm, initial encounter (principal); Z87.891 Personal history of nicotine dependence; Z88.6 Allergy status to analgesic agent; W22.8XXA Striking against or struck by other objects, initial encounter; Y93.01 Activity, walking, marching and hiking
CPT/HCPCS: 99283